=== PATIENT | female | born 1930 | race Caucasian/White ===

== ENCOUNTER 2018-02-20 14:36 | Inpatient (IN) | payer MEDICARE, OTHER ==
[2018-02-20] MEDS ORDERED: Sodium Chloride 0.9% 10 ML Syringe FLUSH PRN (15:01)
--- NOTE | 2018-02-20 15:15 | EDM.PDOC ---
ED HPI GENERAL MEDICAL PROBLEM - General Chief Complaint: Respiratory Problem Stated Complaint: [facility] Time Seen by Provider: 02/20/18 14:38 Source of Information: Reports: Patient, EMS, Group Home Records History Limitations: Reports: No Limitations - History of Present Illness INITIAL COMMENTS - FREE TEXT/NARRATIVE: Patient is a 87 y/o female who presents to the E.D. complaining of shortness of breath with exertion. Patient states she has chronic shortness of breath and over the past 2 weeks has noticed increasing shortness of breath with some few episodes of dizzy spells. Patient just recently returned from a trip to [place] on 08 February. Patient states with traveling at high altitudes she became really short of breath. She has been more worn out than usual. States normally she is able to walk 20 feet without getting SOB and as of recent can only walk 6 to 7 ft with becoming SOB. Patient at times uses a walker to ambulate. Denies home O2. She has gained approximately 5 pounds with recent travels. In addition she developed some slight discomfort to the left posterior aspect of her leg described as a cramp that improves with ambulation. She normally has some increased edema to her left leg in comparison to her right. She denies any chest pain, PND, orthopnea, fever, nausea/vomiting, back pain, abdominal pain, diarrhea, changes to her medications, or any additional complaints. She does not recall last protime. Patient was evaluated at the walk-in clinic today with O2 sats 88-90% on room air. With reviewing previous past medical history patient has a history of hypertension, coronary disease, atrial fibrillation, hyperlipidemia, GERD, DM, diastolic heart failure, and pulmonary hypertension. - Related Data Allergies Allergy/AdvReac Type Severity Reaction Status Date / Time glipizide Allergy Cannot Verified 02/20/18 18:13 Remember Sulfa (Sulfonamide Allergy Cannot Verified 02/20/18 18:13 Antibiotics) Remember Home Meds: Home Meds Acetaminophen 650 mg PO BID 12/20/14 [History] Ascorbate Calcium [Vitamin C] 500 mg PO DAILY 12/20/14 [History] Calcium Carb/Vit D3/Minerals [Hm Calcium 600 mg-Vit D Tab] 1 each PO BID [History] Fish Oil/[place]-3 Fatty Acids [Fish Oil 1,000 MG] 1 tab PO DAILY 12/20/14 [ History] Flaxseed Oil [Flaxseed] 1,200 mg PO QPM 12/20/14 [History] Furosemide [Lasix] 40 mg PO DAILY 12/20/14 [History] Losartan [Cozaar] 25 mg PO DAILY 12/20/14 [History] Metoprolol Succinate [Toprol XL] 50 mg PO QPM 12/20/14 [History] Multivitamin [Daily Multiple Vitamin] 1 tab PO DAILY 12/20/14 [History] Nitroglycerin [Nitrostat] 0.4 mg SL ASDIRECTED PRN 12/20/14 [History] Pantoprazole [ProTONIX] 40 mg PO DAILY PRN 12/20/14 [History] Potassium Chloride [Klor-Con M20] 20 meq PO DAILY 12/20/14 [History] Vitamin E 400 unit PO DAILY 12/20/14 [History] atorvaSTATin [Lipitor] 20 mg PO BEDTIME 12/20/14 [History] Cholecalciferol (Vitamin D3) [Vitamin D3] 1,000 units PO DAILY 02/20/18 [History ] Warfarin Sodium [Jantoven] 2.5 mg PO DAILY 02/20/18 [History] metFORMIN HCl [Metformin HCl] 500 mg PO DAILY 02/20/18 [History] Past Medical History Cardiovascular History: Reports: Afib, CAD, High Cholesterol, Hypertension Gastrointestinal History: Reports: Cholelithiasis, Diverticulosis, GERD, Hiatal Hernia Musculoskeletal History: Reports: Osteoarthritis Endocrine/Metabolic History: Reports: Diabetes, Type II - Past Surgical History HEENT Surgical History: Reports: Adenoidectomy, Tonsillectomy GI Surgical History: Reports: Appendectomy, Colonoscopy Female Surgical History: Reports: Breast Biopsy, Hysterectomy, Salpingo- Oophorectomy Musculoskeletal Surgical History: Reports: Knee Replacement Social & Family History - Tobacco Use Smoking Status *Q: Never Smoker - Caffeine Use Caffeine Use: Reports: None - Alcohol Use Days Per Week of Alcohol Use: 0 - Recreational Drug Use Recreational Drug Use: No ED ROS GENERAL - Review of Systems Review Of Systems: ROS reveals no pertinent complaints other than HPI. ED EXAM, GENERAL - Physical Exam Exam: See Below Exam Limited By: No Limitations General Appearance: Alert, WD/WN, No Apparent Distress Ears: Hearing Grossly Normal Nose: Normal Inspection Throat/Mouth: Normal Inspection, Normal Oropharynx, Normal Voice, No Airway Compromise Neck: Normal Inspection, Supple Respiratory/Chest: No Respiratory Distress, Lungs Clear, Normal Breath Sounds, No Accessory Muscle Use, Chest Non-Tender Cardiovascular: Normal Peripheral Pulses, No Murmur (obvious), Bradycardia, Extra Beats Peripheral Pulses: 3+: Radial (L), Radial (R) GI/Abdominal: Normal Bowel Sounds, Soft, Non-Tender, No Organomegaly, No Distention Extremities: Normal Range of Motion, Non-Tender, Normal Capillary Refill, Other (1+ edema to the lower legs bilaterally. L>R. ) Neurological: Alert, Oriented, CN II-XII Intact, Normal Cognition, No Motor/ Sensory Deficits Psychiatric: Normal Affect, Normal Mood Skin Exam: Warm, Dry, Intact, Normal Color Course - Vital Signs Last Recorded V/S: Last Vital Signs Temp 97.5 F 02/20/18 21:21 Pulse 58 L 02/20/18 21:25 Resp 16 02/20/18 21:21 BP 125/88 02/20/18 21:21 Pulse Ox 92 L 02/20/18 21:25 - Orders/Labs/Meds Orders: Active Orders 24 hr Category Date Time Status Oxygen Therapy [RC] ASDIRECTED Care 02/20/18 15:01 Active Sodium Chloride 0.9% [Saline Flush] Med 02/20/18 15:01 Active 10 ml FLUSH ASDIRECTED PRN Peripheral IV Insertion Adult [OM.PC] Stat Oth 02/20/18 15:01 Ordered Medication Orders Doxycycline Hyclate 100 mg/ (Sodium Chloride) 100 mls @ 100 mls/hr IV Q12HR [facility] Last Admin: 02/20/18 22:16 Dose: 100 mls/hr Methylprednisolone Sodium Succinate (Solu-Medrol) 80 mg IVPUSH Q12H [facility] Last Admin: 02/20/18 22:18 Dose: 80 mg Metoprolol Succinate (Toprol Xl) 50 mg PO QPM [facility] Nitroglycerin (Nitrostat) 0.4 mg SL ASDIRECTED PRN PRN Reason: Chest Pain Pantoprazole Sodium (Protonix) 40 mg PO DAILY PRN PRN Reason: reflux Potassium Chloride (Klor-Con M20) 20 meq PO DAILY [facility] Simvastatin (Zocor) 20 mg PO BEDTIME [facility] Last Admin: 02/20/18 22:19 Dose: 20 mg Sodium Chloride (Saline Flush) 10 ml FLUSH ASDIRECTED PRN PRN Reason: Keep Vein Open Last Admin: 02/20/18 15:10 Dose: 10 ml Warfarin Sodium (Coumadin) 2.5 mg PO DAILY@1800 [facility] Labs: Laboratory Tests 02/20/18 02/20/18 02/20/18 Range/Units 14:48 14:48 14:48 WBC 5.39 (3.98-10.04) K/mm3 RBC 5.13 (3.98-5.22) M/mm3 Hgb 14.8 (11.2-15.7) gm/L Hct 46.2 H (34.1-44.9) % MCV 90.1 (79.4-94.8) fl MCH 28.8 (25.6-32.2) pg MCHC 32.0 L (32.2-35.5) g/dl RDW Std Deviation 50.5 H (36.4-46.3) fL Plt Count 212 (182-369) K/mm3 MPV 10.1 (9.4-12.3) fl Neutrophils % (Manual) 51 (40-60) % Band Neutrophils % 0 (0-10) % Lymphocytes % (Manual) 40 (20-40) % Atypical Lymphs % 0 % Monocytes % (Manual) 4 (2-10) % Eosinophils % (Manual) 5 (0.7-5.8) % Basophils % (Manual) 0 L (0.1-1.2) Platelet Estimate Adequate RBC Morph Comment Normal PT 18.1 H (8.0-13.0) SECONDS INR 1.68 APTT 30 (22-36) SECONDS D-Dimer, Quantitative 0.31 (0.19-0.59) mg/L Puncture Site ABG pH (7.35-7.45) ABG pCO2 (35.0-45.0) mmHg ABG pO2 (80.0-100.0) mmHg ABG HCO3 (22.0-26.0) meq/L ABG O2 Saturation (96.0-97.0) % ABG Base Excess (-2-2.0) Bora Test A-a Gradient mmHg O2 Delivery Device Oxygen Flow Rate FiO2 (21.00-100.00) % Sodium 141 (136-145) mEq/L Potassium 4.6 (3.5-5.1) mEq/L Chloride 103 (98-107) mEq/L Carbon Dioxide 29 (21-32) mEq/L Anion Gap 13.6 (5-15) BUN 21 H (7-18) mg/dL Creatinine 1.1 H (0.55-1.02) mg/dL Est Cr Clr Drug Dosing 31.70 mL/min Estimated GFR (MDRD) 47 (>60) mL/min BUN/Creatinine Ratio 19.1 H (14-18) Glucose 109 (83-115) mg/dL Calcium 9.5 (8.5-10.1) mg/dL Total Bilirubin 0.5 (0.2-1.0) mg/dL AST 15 (15-37) U/L ALT 39 (14-59) U/L Alkaline Phosphatase 63 (46-116) U/L Troponin I < 0.017 (0.00-0.056) ng/mL NT-Pro-B Natriuret Pep (0-450) pg/mL Total Protein 7.1 (6.4-8.2) g/dl Albumin 3.5 (3.4-5.0) g/dl Globulin 3.6 gm/dL Albumin/Globulin Ratio 1.0 (1-2) TSH 3rd Generation 1.823 (0.358-3.74) uIU/mL 02/20/18 02/20/18 Range/Units 14:48 16:21 WBC (3.98-10.04) K/mm3 RBC (3.98-5.22) M/mm3 Hgb (11.2-15.7) gm/L Hct (34.1-44.9) % MCV (79.4-94.8) fl MCH (25.6-32.2) pg MCHC (32.2-35.5) g/dl RDW Std Deviation (36.4-46.3) fL Plt Count (182-369) K/mm3 MPV (9.4-12.3) fl Neutrophils % (Manual) (40-60) % Band Neutrophils % (0-10) % Lymphocytes % (Manual) (20-40) % Atypical Lymphs % % Monocytes % (Manual) (2-10) % Eosinophils % (Manual) (0.7-5.8) % Basophils % (Manual) (0.1-1.2) Platelet Estimate RBC Morph Comment PT (8.0-13.0) SECONDS INR APTT (22-36) SECONDS D-Dimer, Quantitative (0.19-0.59) mg/L Puncture Site Lt radial ABG pH 7.40 (7.35-7.45) ABG pCO2 45.9 H (35.0-45.0) mmHg ABG pO2 71.0 L (80.0-100.0) mmHg ABG HCO3 28.1 H (22.0-26.0) meq/L ABG O2 Saturation 95.0 L (96.0-97.0) % ABG Base Excess 3.2 H (-2-2.0) Bora Test Positive A-a Gradient 25 mmHg O2 Delivery Device Nasal cannula Oxygen Flow Rate 1.0 FiO2 24.00 (21.00-100.00) % Sodium (136-145) mEq/L Potassium (3.5-5.1) mEq/L Chloride (98-107) mEq/L Carbon Dioxide (21-32) mEq/L Anion Gap (5-15) BUN (7-18) mg/dL Creatinine (0.55-1.02) mg/dL Est Cr Clr Drug Dosing mL/min Estimated GFR (MDRD) (>60) mL/min BUN/Creatinine Ratio (14-18) Glucose (83-115) mg/dL Calcium (8.5-10.1) mg/dL Total Bilirubin (0.2-1.0) mg/dL AST (15-37) U/L ALT (14-59) U/L Alkaline Phosphatase (46-116) U/L Troponin I (0.00-0.056) ng/mL NT-Pro-B Natriuret Pep 324 (0-450) pg/mL Total Protein (6.4-8.2) g/dl Albumin (3.4-5.0) g/dl Globulin gm/dL Albumin/Globulin Ratio (1-2) TSH 3rd Generation (0.358-3.74) uIU/mL Meds: Medications Generic Name Dose Route Start Last Admin Trade Name Freq PRN Reason Stop Dose Admin Doxycycline Hyclate 100 mg/ 100 mls @ 100 mls/hr 02/20/18 21:00 02/20/18 22: 16 Sodium Chloride IV 100 mls/hr Q12HR [facility] Administration Methylprednisolone Sodium Succinate 80 mg 02/20/18 21:00 02/20/18 22:18 Solu-Medrol IVPUSH 80 mg Q12H [facility] Administration Metoprolol Succinate 50 mg 02/21/18 18:00 Toprol Xl PO QPM [facility] Nitroglycerin 0.4 mg 02/20/18 20:50 Nitrostat SL ASDIRECTED PRN Chest Pain Pantoprazole Sodium 40 mg 02/20/18 20:50 Protonix PO DAILY PRN reflux Potassium Chloride 20 meq 02/21/18 09:00 Klor-Con M20 PO DAILY [facility] Simvastatin 20 mg 02/20/18 21:30 02/20/18 22:19 Zocor PO 20 mg BEDTIME [facility] Administration Sodium Chloride 10 ml 02/20/18 15:01 02/20/18 15:10 Saline Flush FLUSH 10 ml ASDIRECTED PRN Administration Keep Vein Open Warfarin Sodium 2.5 mg 02/21/18 18:00 Coumadin PO DAILY@1800 [facility] Discontinued Medications Generic Name Dose Route Start Last Admin Trade Name Freq PRN Reason Stop Dose Admin Magnesium Sulfate 2 gm/ Premix 50 mls @ 25 mls/hr 02/20/18 21:16 02/20/18 22: 16 IV 02/20/18 23:15 25 mls/hr ONETIME ONE Administration - Re-Assessments/Exams Free Text/Narrative Re-Assessment/Exam: IV established. Initial labs and studies will include CBC, chem 14, coag studies, pro-BMP, troponin, TSH, chest x-ray one view, EKG, ABG, and d-dimer. EKG: Sinus bradycardia rate of 32 with PJC's. Variable. Patients BP 115/ systolic. CXR reviewed with Dr. Marino with increased pulmonary vascular congestion noted. Cardiomegaly present. 02/20/18 15:41Labs reviewed: CBC was essentially normal. INR is 1.68 which is subtherapeutic. D-dimer normal. Sodium and potassium all within normal limits. Creatinine 1.1. Troponin less than 0.017. ProBNP is 324. TSH 1.823. [address] Bhakta with no answer.Unable to leave a message. Will call back in a few minutes for admission. 02/20/18 16:31 Reassessment, patient's heart rate 59. SPO2 88% to 92% on 1 L nasal cannula. Attempting to be in contact with Dr. Bhakta. Patient states breathing has improved with the oxygen therapy. 02/20/18 16:[address] Bhakta. She has agreed to admit patient. Requests med surg with tele. [facility] [place] to be completed. Departure - Departure Time of Disposition: 15:35 Disposition: Admitted As Inpatient 67 Condition: Fair Clinical Impression: Symptomatic bradycardia - Discharge Information - My Orders Last 24 Hours: My Active Orders 02/20/18 15:01 Oxygen Therapy [RC] ASDIRECTED Sodium Chloride 0.9% [Saline Flush] 10 ml FLUSH ASDIRECTED PRN Peripheral IV Insertion Adult [OM.PC] Stat - Assessment/Plan Last 24 Hours: My Active Orders 02/20/18 15:01 Oxygen Therapy [RC] ASDIRECTED Sodium Chloride 0.9% [Saline Flush] 10 ml FLUSH ASDIRECTED PRN Peripheral IV Insertion Adult [OM.PC] Stat
--- NOTE | 2018-02-20 18:31 | CR ---
Chest: Portable view of the chest was obtained. Comparison: Prior chest x-ray of 12/20/[address] of 12/20/14. Heart is enlarged. Tortuous thoracic aorta is seen. Slight parenchymal density is seen behind the left heart along the lateral left chest which could represent loculated pleural effusion, atelectasis or even small area of pneumonia. Lungs otherwise are clear. Scoliosis is present within the spine. Bony structures are osteopenic. Impression: 1. Slight parenchymal density behind the left heart as noted above. Contrast-enhanced chest CT would be helpful to further evaluate if clinically needed. 2. Other incidental findings. Diagnostic code #3
[2018-02-20] MEDS ORDERED: Pantoprazole 40 MG Tab.CR PO PRN (20:50)
[2018-02-20] MEDS ORDERED: Nitroglycerin 0.4 MG Tab.SL SL PRN (20:50)
[2018-02-20] MEDS ORDERED: Doxycycline 100 MG in Sodium Chloride 0.9% 100 ML IV SCH (21:00)
[2018-02-20] MEDS ORDERED: Non-Formulary Medication 1 Each (Atorvastatin 20 MG) PO SCH (21:00)
[2018-02-20] MEDS ORDERED: Magnesium Sulfate/Water 2 GM in Premix Bag 1 BAG IV ONE (21:16)
--- NOTE | 2018-02-20 21:22 | PCM.HP ---
H&P History of Present Illness - General Date of Service: 02/20/18 Admit Problem/Dx: Admission Diagnosis/Problem Admission Diagnosis/Problem Bradycardia Source of Information: Patient, Family, Provider - History of Present Illness Initial Comments - Free Text/Narative: 87 year old female who has been traveling has recently experienced SOB with decreasing distance. She has had palpitations, lightheadedness, and increasing fatigue. The patient recently returned from [place]. She has had a negative PE work up; telemetry documented a heart rate in the 30-40s. She will be admitted for an atypical PNA treatment and symptomatic bradycardia. Onset of Symptoms: Reports: Gradual Symptom Onset Date: 01/31/18 Duration of Symptoms: Reports: Week(s):, Getting Worse Location: Reports: Generalized Severity: Moderate Improves with: Reports: Medication Worsens with: Reports: None Context: Reports: Activity/Exercise, Travel ([place]) Associated Symptoms: Reports: Malaise, Shortness of Breath, Weakness - Related Data Allergies/Adverse Reactions: Allergies Allergy/AdvReac Type Severity Reaction Status Date / Time glipizide Allergy Cannot Verified 02/20/18 18:13 Remember Sulfa (Sulfonamide Allergy Cannot Verified 02/20/18 18:13 Antibiotics) Remember Home Medications: Home Meds Acetaminophen 650 mg PO BID 12/20/14 [History] Ascorbate Calcium [Vitamin C] 500 mg PO DAILY 12/20/14 [History] Calcium Carb/Vit D3/Minerals [Hm Calcium 600 mg-Vit D Tab] 1 each PO BID [History] Fish Oil/Arion-3 Fatty Acids [Fish Oil 1,000 MG] 1 tab PO QID 12/20/14 [History] Flaxseed Oil [Flaxseed] 1,200 mg PO QPM 12/20/14 [History] Furosemide [Lasix] 40 mg PO DAILY 12/20/14 [History] Losartan [Cozaar] 25 mg PO DAILY 12/20/14 [History] Metoprolol Succinate [Toprol XL] 50 mg PO QPM 12/20/14 [History] Multivitamin [Daily Multiple Vitamin] 1 tab PO DAILY 12/20/14 [History] Nitroglycerin [Nitrostat] 0.4 mg SL ASDIRECTED PRN 12/20/14 [History] Pantoprazole [ProTONIX] 40 mg PO DAILY PRN 12/20/14 [History] Potassium Chloride [Klor-Con M20] 20 meq PO DAILY 12/20/14 [History] Vitamin E 400 unit PO DAILY 12/20/14 [History] atorvaSTATin [Lipitor] 20 mg PO BEDTIME 12/20/14 [History] Cholecalciferol (Vitamin D3) [Vitamin D3] 1,000 units PO DAILY 02/20/18 [History ] Warfarin Sodium [Jantoven] 2.5 mg PO DAILY 02/20/18 [History] metFORMIN HCl [Metformin HCl] 500 mg PO DAILY 02/20/18 [History] Past Medical History HEENT History: Reports: Cataract, Hard of Hearing, Impaired Vision, Other (See Below) Other HEENT History: wears glasses, wears hearing aids, has a partial Cardiovascular History: Reports: Afib, Blood Clots/VTE/DVT, CAD, Heart Failure, High Cholesterol, Hypertension, SOB on Exertion Respiratory History: Reports: None Gastrointestinal History: Reports: Diverticulosis, GERD, Hiatal Hernia Genitourinary History: Reports: None RN PALLIATIVE CARE History: Reports: None Musculoskeletal History: Reports: Osteoarthritis Neurological History: Reports: None Psychiatric History: Reports: None Endocrine/Metabolic History: Reports: Diabetes, Type II, Obesity/BMI 30+ Hematologic History: Reports: None Immunologic History: Reports: None Oncologic (Cancer) History: Reports: None Dermatologic History: Reports: Cellulitis - Infectious Disease History Infectious Disease History: Reports: None - Past Surgical History HEENT Surgical History: Reports: Adenoidectomy, Tonsillectomy Cardiovascular Surgical History: Reports: None Respiratory Surgical History: Reports: None GI Surgical History: Reports: Appendectomy, Colonoscopy Female Surgical History: Reports: Breast Biopsy, Hysterectomy, Salpingo- Oophorectomy Neurological Surgical History: Reports: None Musculoskeletal Surgical History: Reports: Knee Replacement, Other (See Below) Other Musculoskeletal Surgeries/Procedures:: right knee replacement Oncologic Surgical History: Reports: Biopsy of Breast Dermatological Surgical History: Reports: None Social & Family History - Family History Family Medical History: Noncontributory - Tobacco Use Smoking Status *Q: Never Smoker - Caffeine Use Caffeine Use: Reports: Coffee, Soda, Tea - Alcohol Use Days Per Week of Alcohol Use: 0 - Recreational Drug Use Recreational Drug Use: No H&P Review of Systems - Review of Systems: Review Of Systems: See Below General: Reports: Weakness, Fatigue HEENT: Reports: No Symptoms Pulmonary: Reports: Shortness of Breath, Cough Cardiovascular: Reports: No Symptoms Gastrointestinal: Reports: No Symptoms Genitourinary: Reports: No Symptoms Musculoskeletal: Reports: No Symptoms Skin: Reports: No Symptoms Psychiatric: Reports: No Symptoms Neurological: Reports: No Symptoms Hematologic/Lymphatic: Reports: Easy Bleeding Immunologic: Reports: No Symptoms Exam - Exam Exam: See Below - Vital Signs Vital Signs: Last Vital Signs Temp 36.6 C 02/20/18 18:01 Pulse 61 02/20/18 18:01 Resp 18 02/20/18 18:01 BP 163/91 H 02/20/18 18:01 Pulse Ox 91 L 02/20/18 18:01 Weight: 108.545 kg - Exam Quality Assessment: Supplemental Oxygen General: Alert, Oriented, Cooperative HEENT: EACs Clear, EOMI, Pupils Equal, Pupils Reactive, PERRLA Neck: Trachea Midline Lungs: Normal Respiratory Effort, Decreased Breath Sounds Cardiovascular: Regular Rate, Irregular Rhythm GI/Abdominal Exam: Normal Bowel Sounds, Soft, Non-Tender, No Organomegaly, No Distention (Female) Exam: Deferred Rectal (Female) Exam: Deferred Back Exam: Normal Inspection Extremities: Normal Inspection, Non-Tender Skin: Warm Neurological: Cranial Nerves Intact Neuro Extensive - Mental Status: Alert, Oriented x3, Normal Mood/Affect, Normal Cognition, Memory Intact Neuro Extensive - Motor, Sensory, Reflexes: CN II-XII Intact Psychiatric: Alert - Patient Data Result Diagrams: 02/21/18 05:08 02/21/18 05:08 - Problem List (1) CAD (coronary artery disease) SNOMED Code(s): 70320055 ICD Code: I25.10 - ATHSCL HEART DISEASE OF [place] CORONARY ARTERY W/O ANG PCTRS Status: Acute Current Visit: Yes (2) Hypertension SNOMED Code(s): 46407596 ICD Code: I10 - ESSENTIAL (PRIMARY) HYPERTENSION Status: Acute Current Visit: Yes (3) Diabetes mellitus SNOMED Code(s): 49868330 ICD Code: E11.9 - TYPE 2 DIABETES MELLITUS WITHOUT COMPLICATIONS Status: Acute Current Visit: Yes (4) GERD (gastroesophageal reflux disease) SNOMED Code(s): 023965586 ICD Code: K21.9 - GASTRO-ESOPHAGEAL REFLUX DISEASE WITHOUT ESOPHAGITIS Status: Acute Current Visit: Yes (5) Pulmonary hypertension SNOMED Code(s): 24999799 ICD Code: I27.20 - PULMONARY HYPERTENSION, UNSPECIFIED Status: Acute Current Visit: Yes (6) Symptomatic bradycardia SNOMED Code(s): 03416584, 760548660 ICD Code: R00.1 - BRADYCARDIA, UNSPECIFIED Status: Acute Current Visit: Yes (7) Afib, Atrial fibrillation and flutter SNOMED Code(s): 368387661 ICD Code: I48.91 - UNSPECIFIED ATRIAL FIBRILLATION; I48.92 - UNSPECIFIED ATRIAL FLUTTER Status: Acute Current Visit: No (8) Chronic congestive heart failure, CHF SNOMED Code(s): 61598833 ICD Code: I50.9 - HEART FAILURE, UNSPECIFIED Status: Acute Current Visit : No (9) Pulmonary congestion SNOMED Code(s): 19012808 ICD Code: R09.89 - OTH SYMPTOMS AND SIGNS INVOLVING THE CIRC AND RESP SYSTEMS Status: Acute Current Visit: No (10) Pulmonary hypertension SNOMED Code(s): 68767045 ICD Code: I27.2 - OTHER SECONDARY PULMONARY HYPERTENSION * DO NOT USE * Status: Acute Current Visit: No Problem List Initiated/Reviewed/Updated: Yes Orders Last 24hrs: Active Orders 24 hr Category Date Time Status Antiembolic Devices [RC] PER UNIT ROUTINE Care 02/20/18 20:52 Ordered Consult to Case Management [CONS] Routine Cons 02/20/18 21:18 Ordered Consult to Occupational Therapy [OT Evaluation and Cons 02/20/18 21:18 Ordered Treatment] [CONS] Routine Consult to Physical Therapy [PT Evaluation and Cons 02/20/18 21:18 Ordered Treatment] [CONS] Routine [place] [employer] Diet [DIET] Diet 02/21/18 Breakfast Ordered Heart Healthy Diet [DIET] Diet 02/20/18 Dinner Active CXR [Chest 2V] [CR] Routine Exams 02/22/18 08:00 Ordered BMP [BASIC METABOLIC PANEL,BMP] [CHEM] DAILY Lab 02/21/18 05:00 Ordered BMP [BASIC METABOLIC PANEL,BMP] [CHEM] DAILY Lab 02/22/18 05:00 Ordered BMP [BASIC METABOLIC PANEL,BMP] [CHEM] DAILY Lab 02/23/18 05:00 Ordered BMP [BASIC METABOLIC PANEL,BMP] [CHEM] DAILY Lab 02/24/18 05:00 Ordered CBC WITH AUTO DIFF [HEME] DAILY Lab 02/21/18 05:00 Ordered CBC WITH AUTO DIFF [HEME] DAILY Lab 02/22/18 05:00 Ordered CBC WITH AUTO DIFF [HEME] DAILY Lab 02/23/18 05:00 Ordered CBC WITH AUTO DIFF [HEME] DAILY Lab 02/24/18 05:00 Ordered CRP [C-REACTIVE PROTEIN] [CHEM] DAILY Lab 02/21/18 05:00 Ordered CRP [C-REACTIVE PROTEIN] [CHEM] DAILY Lab 02/22/18 05:00 Ordered CRP [C-REACTIVE PROTEIN] [CHEM] DAILY Lab 02/23/18 05:00 Ordered CRP [C-REACTIVE PROTEIN] [CHEM] DAILY Lab 02/24/18 05:00 Ordered INR,PT,PROTHROMBIN TIME [COAG] DAILY Lab 02/21/18 05:00 Ordered INR,PT,PROTHROMBIN TIME [COAG] DAILY Lab 02/22/18 05:00 Ordered INR,PT,PROTHROMBIN TIME [COAG] DAILY Lab 02/23/18 05:00 Ordered INR,PT,PROTHROMBIN TIME [COAG] DAILY Lab 02/24/18 05:00 Ordered LACTIC ACID [CHEM] DAILY Lab 02/21/18 05:00 Ordered LACTIC ACID [CHEM] DAILY Lab 02/22/18 05:00 Ordered LACTIC ACID [CHEM] DAILY Lab 02/23/18 05:00 Ordered LACTIC ACID [CHEM] DAILY Lab 02/24/18 05:00 Ordered LIPID PANEL [CHEM] Routine Lab 02/21/18 05:00 Ordered MAGNESIUM [CHEM] DAILY Lab 02/21/18 05:00 Ordered MAGNESIUM [CHEM] DAILY Lab 02/22/18 05:00 Ordered MAGNESIUM [CHEM] DAILY Lab 02/23/18 05:00 Ordered MAGNESIUM [CHEM] DAILY Lab 02/24/18 05:00 Ordered MYCOPLASMA PNEUMONIAE IGM AB [CHEM] Routine Lab 02/21/18 05:00 Ordered RESPIRATORY PANEL BY PCR [MREF] Routine Lab 02/20/18 21:19 Ordered Doxycycline [Vibramycin] 100 mg Med 02/20/18 21:00 Ordered Sodium Chloride 0.9% [Normal Saline] 100 ml IV Q12HR Magnesium Sulfate/Water [Magnesium Sulfate 2 GM in Med 02/20/18 21:16 Ordered Water 50 ML] 2 gm Premix Bag 1 bag IV ONETIME Metoprolol Succinate [Toprol XL] Med 02/21/18 18:00 Ordered 50 mg PO QPM Nitroglycerin [Nitrostat] Med 02/20/18 20:50 Ordered 0.4 mg SL ASDIRECTED PRN Pantoprazole [ProTONIX] Med 02/20/18 20:50 Ordered 40 mg PO DAILY PRN Potassium Chloride [Klor-Con M20] Med 02/21/18 09:00 Ordered 20 meq PO DAILY Warfarin [Coumadin] Med 02/21/18 09:00 Ordered 2.5 mg PO DAILY atorvaSTATin Med 02/20/18 21:00 Ordered 20 mg PO BEDTIME methylPREDNISolone Sod Succ [Solu-MEDROL] Med 02/20/18 21:00 Ordered 80 mg IVPUSH Q12H LINDA Hose [Antiembolic Hose] [OM.PC] Routine Oth 02/20/18 20:52 Ordered Resuscitation Status Routine Resus Stat 02/20/18 19:52 Ordered Medication Orders Doxycycline Hyclate 100 mg/ (Sodium Chloride) 100 mls @ 100 mls/hr IV Q12HR [facility] Magnesium Sulfate 2 gm/ Premix 50 mls @ 25 mls/hr IV ONETIME ONE Stop: 02/20/18 23:15 Methylprednisolone Sodium Succinate (Solu-Medrol) 80 mg IVPUSH Q12H [facility] Metoprolol Succinate (Toprol Xl) 50 mg PO QPM [facility] Nitroglycerin (Nitrostat) 0.4 mg SL ASDIRECTED PRN PRN Reason: Chest Pain Non-Formulary Medication (Atorvastatin) 20 mg PO BEDTIME [facility] Pantoprazole Sodium (Protonix) 40 mg PO DAILY PRN PRN Reason: reflux Potassium Chloride (Klor-Con M20) 20 meq PO DAILY [facility] Sodium Chloride (Saline Flush) 10 ml FLUSH ASDIRECTED PRN PRN Reason: Keep Vein Open Last Admin: 02/20/18 15:10 Dose: 10 ml Warfarin Sodium (Coumadin) 2.5 mg PO DAILY [facility] Assessment/Plan Comment:: Impression: Symptomatic bradycardia with A fib on long acting BB Progressive SOB after travel to [facility] History of pulmonary hypertension, functional status declining Hypoxia, room air at 88-90% on RA Chronic HTN GERD DHF CAD HTN HLD Plan: Hold BB, follow response Atypical PNA coverage, doxycycline Ischemic work up Infectious work up Home meds Daily Labs DVT/GI prophylaxis CM/PT/OT
[2018-02-20] MEDS: methylPREDNISolone Sodium Succinate 40 MG/1 ML SDV IVPUSH SCH (22:18)
[2018-02-20] MEDS: Simvastatin 20 MG Tab PO SCH (22:19)
[2018-02-21] MEDS: Potassium Chloride 20 MEQ Tab.ER PO SCH (09:38)
[2018-02-21] MEDS: methylPREDNISolone Sodium Succinate 40 MG/1 ML SDV IVPUSH SCH (09:39)
[2018-02-21] MEDS: hydrALAZINE 20 MG/ML SDV IVPUSH PRN (13:36)
[2018-02-21] MEDS: Acetaminophen 325 MG Tab PO PRN ×2 (14:42→20:18)
--- NOTE | 2018-02-21 15:55 | PCM.PN ---
- General Info Date of Service: 02/21/18 Admission Dx/Problem (Free Text): Admission Diagnosis/Problem Admission Diagnosis/Problem Bradycardia Subjective Update: In to see Betty. She is sitting in the chair in her room. She reports SOB and states that it is still about at the level from when she came in. She is set to have a CT scan of her chest tomorrow. Her CRP and WBC are WNL so doubting infection at this point. Infectious workup has thus far been negative. Echo ordered for AM. She does have some pedal edema which she states is normal and not any worse than baseline today. No complaints. No concerns from nursing. Functional Status: Reports: Pain Controlled, Tolerating Diet, Ambulating, Urinating, New Symptoms, Incentive Spirometry - Review of Systems General: Reports: No Symptoms, Weakness, Fatigue. Denies: Fever, Malaise HEENT: Reports: No Symptoms. Denies: Post Nasal Drip, Sinus Congestion, Sore Throat Pulmonary: Reports: Shortness of Breath, Cough Cardiovascular: Reports: No Symptoms Gastrointestinal: Reports: No Symptoms. Denies: Abdominal Pain, Constipation, Diarrhea, Nausea, Vomiting Genitourinary: Reports: No Symptoms Musculoskeletal: Reports: No Symptoms Skin: Reports: No Symptoms Neurological: Reports: No Symptoms Psychiatric: Reports: No Symptoms - Patient Data Vitals - Most Recent: Last Vital Signs Temp 97.9 F 02/21/18 14:49 Pulse 80 02/21/18 14:49 Resp 16 02/21/18 14:49 BP 142/68 H 02/21/18 14:49 Pulse Ox 96 02/21/18 14:49 Weight - Most Recent: 239 lb 4.8 oz I&O - Last 24 Hours: Intake & Output 02/21/18 02/21/18 02/21/18 06:59 14:59 22:59 Intake Total 180 Output Total 225 Balance -225 180 Lab Results Last 24 Hours: Laboratory Results - last 24 hr 02/20/18 02/21/18 02/21/18 Range/Units 16:21 05:08 05:08 WBC 4.73 (3.98-10.04) K/mm3 RBC 5.20 (3.98-5.22) M/mm3 Hgb 15.1 (11.2-15.7) gm/L Hct 46.7 H (34.1-44.9) % MCV 89.8 (79.4-94.8) fl MCH 29.0 (25.6-32.2) pg MCHC 32.3 (32.2-35.5) g/dl RDW Std Deviation 49.5 H (36.4-46.3) fL Plt Count 203 (182-369) K/mm3 MPV 9.9 (9.4-12.3) fl Neut % (Auto) 85.4 H (34.0-71.1) % Lymph % (Auto) 12.5 L (19.3-51.7) % [place] % (Auto) 1.7 L (4.7-12.5) % Eos % (Auto) 0.2 L (0.7-5.8) Baso % (Auto) 0.2 (0.1-1.2) % Neut # (Auto) 4.04 (1.56-6.13) K/mm3 Lymph # (Auto) 0.59 L (1.18-3.74) K/mm3 [place] # (Auto) 0.08 L (0.24-0.36) K/mm3 Eos # (Auto) 0.01 L (0.04-0.36) K/mm3 Baso # (Auto) 0.01 (0.01-0.08) K/mm3 Manual Slide Review Abnormal smear PT (8.0-13.0) SECONDS INR Puncture Site Lt radial ABG pH 7.40 (7.35-7.45) ABG pCO2 45.9 H (35.0-45.0) mmHg ABG pO2 71.0 L (80.0-100.0) mmHg ABG HCO3 28.1 H (22.0-26.0) meq/L ABG O2 Saturation 95.0 L (96.0-97.0) % ABG Base Excess 3.2 H (-2-2.0) Bora Test Positive A-a Gradient 25 mmHg O2 Delivery Device Nasal cannula Oxygen Flow Rate 1.0 FiO2 24.00 (21.00-100.00) % Sodium 140 (136-145) mEq/L Potassium 4.3 (3.5-5.1) mEq/L Chloride 101 (98-107) mEq/L Carbon Dioxide 29 (21-32) mEq/L Anion Gap 14.3 (5-15) BUN 22 H (7-18) mg/dL Creatinine 1.0 (0.55-1.02) mg/dL Est Cr Clr Drug Dosing 34.87 mL/min Estimated GFR (MDRD) 53 (>60) mL/min BUN/Creatinine Ratio 22.0 H (14-18) Glucose 218 H (83-115) mg/dL POC Glucose (83-110) mg/dL Lactic Acid (0.4-2.0) mmol/L Calcium 8.9 (8.5-10.1) mg/dL Magnesium 2.4 (1.8-2.4) mg/dl C-Reactive Protein < 0.2 (<1.0) mg/dL Triglycerides 132 (<150) mg/dL Cholesterol 140 (<200) mg/dL LDL Cholesterol Direct 86 (<100) mg/dL HDL Cholesterol 38.0 L (40-59) mg/dL Mycoplasma pneumon IgM Negative (NEGATIVE) 02/21/18 02/21/18 02/21/18 Range/Units 05:08 05:08 06:15 WBC (3.98-10.04) K/mm3 RBC (3.98-5.22) M/mm3 Hgb (11.2-15.7) gm/L Hct (34.1-44.9) % MCV (79.4-94.8) fl MCH (25.6-32.2) pg MCHC (32.2-35.5) g/dl RDW Std Deviation (36.4-46.3) fL Plt Count (182-369) K/mm3 MPV (9.4-12.3) fl Neut % (Auto) (34.0-71.1) % Lymph % (Auto) (19.3-51.7) % [place] % (Auto) (4.7-12.5) % Eos % (Auto) (0.7-5.8) Baso % (Auto) (0.1-1.2) % Neut # (Auto) (1.56-6.13) K/mm3 Lymph # (Auto) (1.18-3.74) K/mm3 [place] # (Auto) (0.24-0.36) K/mm3 Eos # (Auto) (0.04-0.36) K/mm3 Baso # (Auto) (0.01-0.08) K/mm3 Manual Slide Review PT 18.5 H (8.0-13.0) SECONDS INR 1.72 Puncture Site ABG pH (7.35-7.45) ABG pCO2 (35.0-45.0) mmHg ABG pO2 (80.0-100.0) mmHg ABG HCO3 (22.0-26.0) meq/L ABG O2 Saturation (96.0-97.0) % ABG Base Excess (-2-2.0) Bora Test A-a Gradient mmHg O2 Delivery Device Oxygen Flow Rate FiO2 (21.00-100.00) % Sodium (136-145) mEq/L Potassium (3.5-5.1) mEq/L Chloride (98-107) mEq/L Carbon Dioxide (21-32) mEq/L Anion Gap (5-15) BUN (7-18) mg/dL Creatinine (0.55-1.02) mg/dL Est Cr Clr Drug Dosing mL/min Estimated GFR (MDRD) (>60) mL/min BUN/Creatinine Ratio (14-18) Glucose (83-115) mg/dL POC Glucose 203 H (83-110) mg/dL Lactic Acid 1.6 (0.4-2.0) mmol/L Calcium (8.5-10.1) mg/dL Magnesium (1.8-2.4) mg/dl C-Reactive Protein (<1.0) mg/dL Triglycerides (<150) mg/dL Cholesterol (<200) mg/dL LDL Cholesterol Direct (<100) mg/dL HDL Cholesterol (40-59) mg/dL Mycoplasma pneumon IgM (NEGATIVE) 02/21/18 Range/Units 11:08 WBC (3.98-10.04) K/mm3 RBC (3.98-5.22) M/mm3 Hgb (11.2-15.7) gm/L Hct (34.1-44.9) % MCV (79.4-94.8) fl MCH (25.6-32.2) pg MCHC (32.2-35.5) g/dl RDW Std Deviation (36.4-46.3) fL Plt Count (182-369) K/mm3 MPV (9.4-12.3) fl Neut % (Auto) (34.0-71.1) % Lymph % (Auto) (19.3-51.7) % [place] % (Auto) (4.7-12.5) % Eos % (Auto) (0.7-5.8) Baso % (Auto) (0.1-1.2) % Neut # (Auto) (1.56-6.13) K/mm3 Lymph # (Auto) (1.18-3.74) K/mm3 [place] # (Auto) (0.24-0.36) K/mm3 Eos # (Auto) (0.04-0.36) K/mm3 Baso # (Auto) (0.01-0.08) K/mm3 Manual Slide Review PT (8.0-13.0) SECONDS INR Puncture Site ABG pH (7.35-7.45) ABG pCO2 (35.0-45.0) mmHg ABG pO2 (80.0-100.0) mmHg ABG HCO3 (22.0-26.0) meq/L ABG O2 Saturation (96.0-97.0) % ABG Base Excess (-2-2.0) Bora Test A-a Gradient mmHg O2 Delivery Device Oxygen Flow Rate FiO2 (21.00-100.00) % Sodium (136-145) mEq/L Potassium (3.5-5.1) mEq/L Chloride (98-107) mEq/L Carbon Dioxide (21-32) mEq/L Anion Gap (5-15) BUN (7-18) mg/dL Creatinine (0.55-1.02) mg/dL Est Cr Clr Drug Dosing mL/min Estimated GFR (MDRD) (>60) mL/min BUN/Creatinine Ratio (14-18) Glucose (83-115) mg/dL POC Glucose 229 H (83-110) mg/dL Lactic Acid (0.4-2.0) mmol/L Calcium (8.5-10.1) mg/dL Magnesium (1.8-2.4) mg/dl C-Reactive Protein (<1.0) mg/dL Triglycerides (<150) mg/dL Cholesterol (<200) mg/dL LDL Cholesterol Direct (<100) mg/dL HDL Cholesterol (40-59) mg/dL Mycoplasma pneumon IgM (NEGATIVE) Med Orders - Current: Current Medications Acetaminophen (Tylenol) 650 mg PO Q4H PRN PRN Reason: Pain Last Admin: 02/21/18 14:42 Dose: 650 mg Doxycycline Hyclate (Vibramycin) 100 mg PO BID [facility] Hydralazine HCl (Apresoline) 20 mg IVPUSH Q6H PRN PRN Reason: Hypertension Last Admin: 02/21/18 13:36 Dose: 20 mg Doxycycline Hyclate 100 mg/ (Dextrose/Water) 100 mls @ 100 mls/hr IV Q12HR [facility] Stop: 02/21/18 23:00 Last Admin: 02/21/18 09:39 Dose: 100 mls/hr Methylprednisolone Sodium Succinate (Solu-Medrol) 80 mg IVPUSH Q12H [facility] Last Admin: 02/21/18 09:39 Dose: 80 mg Metoprolol Succinate (Toprol Xl) 50 mg PO QPM [facility] Nitroglycerin (Nitrostat) 0.4 mg SL ASDIRECTED PRN PRN Reason: Chest Pain Pantoprazole Sodium (Protonix) 40 mg PO DAILY PRN PRN Reason: reflux Potassium Chloride (Klor-Con M20) 20 meq PO DAILY [facility] Last Admin: 02/21/18 09:38 Dose: 20 meq Simvastatin (Zocor) 20 mg PO BEDTIME [facility] Last Admin: 02/20/18 22:19 Dose: 20 mg Sodium Chloride (Saline Flush) 10 ml FLUSH ASDIRECTED PRN PRN Reason: Keep Vein Open Last Admin: 02/20/18 15:10 Dose: 10 ml Warfarin Sodium (Coumadin) 2.5 mg PO DAILY@1800 [facility] Discontinued Medications Doxycycline Hyclate 100 mg/ (Sodium Chloride) 100 mls @ 100 mls/hr IV Q12HR [facility] Last Admin: 02/20/18 22:16 Dose: 100 mls/hr Magnesium Sulfate 2 gm/ Premix 50 mls @ 25 mls/hr IV ONETIME ONE Stop: 02/20/18 23:15 Last Admin: 02/20/18 22:16 Dose: 25 mls/hr Doxycycline Hyclate 100 mg/ (Dextrose/Water) 100 mls @ 100 mls/hr IV Q12HR [facility] - Exam Quality Assessment: Supplemental Oxygen, DVT Prophylaxis General: Alert, Oriented, Cooperative, No Acute Distress HEENT: Pupils Equal, Pupils Reactive, EOMI, Mucous Membr. Moist/[place] Neck: Supple, Trachea Midline, No JVD Lungs: Clear to Auscultation, Normal Respiratory Effort, Decreased Breath Sounds Cardiovascular: Regular Rate, Irregular Rhythm GI/Abdominal Exam: Normal Bowel Sounds, Soft, Non-Tender, No Organomegaly, No Distention, No Abnormal Bruit, No Mass, Pelvis Stable Back Exam: Normal Inspection, Full Range of Motion Extremities: Normal Inspection, Normal Range of Motion, Non-Tender, Normal Capillary Refill, Pedal Edema (1+ L>R) Peripheral Pulses: 1+: Posterior Tibial (L), Posterior Tibial (R), Dorsalis Pedis (L), Dorsalis Pedis (R), 2+: Radial (L), Radial (R) Skin: Warm, Dry, Intact Neurological: No New Focal Deficit Psy/Mental Status: Alert, Normal Affect, Normal Mood - Problem List & Annotations (1) CAD (coronary artery disease) SNOMED Code(s): 15290739 Code(s): I25.10 - ATHSCL HEART DISEASE OF [place] CORONARY ARTERY W/O ANG PCTRS Status: Chronic Priority: Medium Current Visit: Yes Qualifiers: Coronary Disease-Associated Artery/Lesion type: unspecified vessel or lesion type [place] vs. transplanted heart: unspecified whether [place] or transplanted heart Associated angina: angina presence unspecified Qualified Code(s): I25.10 - Atherosclerotic heart disease of [place] coronary artery without angina pectoris (2) Diabetes mellitus SNOMED Code(s): 08794927 Code(s): E11.9 - TYPE 2 DIABETES MELLITUS WITHOUT COMPLICATIONS Status: Chronic Priority: Medium Current Visit: Yes Qualifiers: Diabetes mellitus type: type 2 Diabetes mellitus buttermaker insulin use: without custodial use Diabetes mellitus complication status: with unspecified complications Qualified Code(s): E11.8 - Type 2 diabetes mellitus with unspecified complications (3) GERD (gastroesophageal reflux disease) SNOMED Code(s): 823340206 Code(s): K21.9 - GASTRO-ESOPHAGEAL REFLUX DISEASE WITHOUT ESOPHAGITIS Status: Chronic Priority: Medium Current Visit: No Qualifiers: Esophagitis presence: esophagitis presence not specified Qualified Code(s) : K21.9 - Gastro-esophageal reflux disease without esophagitis (4) Hypertension SNOMED Code(s): 43988487 Code(s): I10 - ESSENTIAL (PRIMARY) HYPERTENSION Status: Chronic Priority : Medium Current Visit: Yes Qualifiers: Hypertension type: unspecified Qualified Code(s): I10 - Essential (primary ) hypertension (5) Pulmonary hypertension SNOMED Code(s): 77378458 Code(s): I27.20 - PULMONARY HYPERTENSION, UNSPECIFIED Status: Chronic Priority: Medium Current Visit: No (6) Symptomatic bradycardia SNOMED Code(s): 29394912, 120024482 Code(s): R00.1 - BRADYCARDIA, UNSPECIFIED Status: Acute Priority: High Current Visit: Yes (7) Afib, Atrial fibrillation and flutter SNOMED Code(s): 683989407 Code(s): I48.91 - UNSPECIFIED ATRIAL FIBRILLATION; I48.92 - UNSPECIFIED ATRIAL FLUTTER Status: Chronic Priority: Medium Current Visit: No (8) Chronic congestive heart failure, CHF SNOMED Code(s): 25537042 Code(s): I50.9 - HEART FAILURE, UNSPECIFIED Status: Acute Priority: High Current Visit: Yes (9) Pulmonary congestion SNOMED Code(s): 78724090 Code(s): R09.89 - OTH SYMPTOMS AND SIGNS INVOLVING THE CIRC AND RESP SYSTEMS Status: Acute Priority: High Current Visit: Yes - Problem List Review Problem List Initiated/Reviewed/Updated: Yes - Plan Plan:: Impression: Symptomatic bradycardia with A fib on long acting BB, improved Progressive SOB after travel to [facility] History of pulmonary hypertension, functional status declining Hypoxia, room air at 88-90% on RA; improving Pneumonia vs. atelectasis- slight parenchymal density noted on left side of heart on CXR -CT in AM to further evaluate -WBC and CRP WNL Chronic: A-Fib on Coumadin DM type II HTN GERD DHF CAD HTN HLD Plan: Hold BB, follow response - resume Atypical PNA coverage, doxycycline Ischemic work up Hold Metformin use SS insulin and QID AC and Bed glucose checks Echo 02/22/18 Continue Coumadin, follow INR. Infectious work up Home meds Daily Labs DVT/GI prophylaxis CM/PT/OT
[2018-02-21] MEDS ORDERED: 50% Dextrose in Water 50 ML Syringe IVPUSH PRN (17:09)
[2018-02-21] MEDS ORDERED: Metoprolol Succinate 50 MG Tab.ER PO SCH (18:00)
[2018-02-21] MEDS: Warfarin 2.5 MG Tab PO SCH (18:14)
[2018-02-21] MEDS: Simvastatin 20 MG Tab PO SCH (20:18)
[2018-02-21] MEDS: methylPREDNISolone Sodium Succinate 125 MG/2 ML SDV IVPUSH SCH (20:19)
[2018-02-21] MEDS ORDERED: cefTRIAXone 1 GM in Sodium Chloride 0.9% 100 ML IV SCH (20:30)
[2018-02-21] MEDS: Insulin Aspart 100 Units/ML 3 ML Pen SUBCUT SCH (22:31)
[2018-02-22] MEDS: Acetaminophen 325 MG Tab PO PRN ×4 (05:41→21:57)
[2018-02-22] MEDS: hydrALAZINE 20 MG/ML SDV IVPUSH PRN (05:42)
[2018-02-22] MEDS: Ondansetron 4 MG/2 ML SDV IVPUSH PRN ×2 (06:32→12:58)
[2018-02-22] MEDS: Doxycycline 100 MG Cap PO SCH ×2 (08:03→20:43)
[2018-02-22] MEDS: Insulin Aspart 100 Units/ML 3 ML Pen SUBCUT SCH ×4 (08:03→21:00)
[2018-02-22] MEDS: Potassium Chloride 20 MEQ Tab.ER PO SCH (08:03)
[2018-02-22] MEDS: methylPREDNISolone Sodium Succinate 125 MG/2 ML SDV IVPUSH SCH (08:03)
[2018-02-22] MEDS ORDERED: Sodium Chloride 0.9% 10 ML Syringe FLUSH ONE (08:46)
[2018-02-22] MEDS ORDERED: Iopamidol 612 MG/ML 100 ML Bottle IVPUSH ONE (08:46)
--- NOTE | 2018-02-22 10:31 | CT ---
CT chest (without and with intravenous contrast) Technique: Multiple axial sections through the chest were obtained. Study obtained without and with intravenous contrast. Comparison: Previous CT chest study of 12/20/14. Findings: Right thyroid nodule is seen measuring 2.0 cm. This is not well seen on prior study but is felt to be increased in size on current study. Atherosclerotic calcification is noted within the aorta. No aneurysm is seen. Small normal-appearing mediastinal lymph nodes are noted. Heart is enlarged. Minimal pericardial effusion or pericardial thickening is seen. This finding is stable from prior exam. Small low-density lesion is seen within the dome of the right lobe of the liver measuring about 1.2 cm in size which is stable from prior CT exam. Pulmonary arteries are slightly prominent in size which appear stable from previous CT exam. Slight scarring is noted within the lingula and left base. No acute parenchymal change is seen. Bone window settings show diffuse degenerative change within the spine with scoliosis. Deformity noted of the lower ribs on both sides compatible with old fractures. Impression: 1. Increased size of the pulmonary arteries which remain stable from prior CT exam and is felt to be incidental. 2. Nodule within the right lobe of the thyroid gland which is likely benign. 3. Other incidental findings as noted above. Diagnostic code #2
[2018-02-22] MEDS ORDERED: methylPREDNISolone Sodium Succinate 40 MG/1 ML SDV IVPUSH SCH (10:50)
[2018-02-22] MEDS ORDERED: Furosemide 20 MG/2 ML VIAL IVPUSH ONE (13:30)
--- NOTE | 2018-02-22 13:37 | PCM.PN ---
- General Info Date of Service: 02/22/18 Functional Status: Reports: Tolerating Diet, Urinating - Review of Systems General: Reports: Weakness HEENT: Reports: No Symptoms Pulmonary: Reports: Shortness of Breath Cardiovascular: Reports: No Symptoms Gastrointestinal: Reports: No Symptoms Genitourinary: Reports: No Symptoms Musculoskeletal: Reports: No Symptoms Skin: Reports: No Symptoms Neurological: Reports: No Symptoms Psychiatric: Reports: No Symptoms - Patient Data Vitals - Most Recent: Last Vital Signs Temp 36.6 C 02/22/18 11:37 Pulse 68 02/22/18 11:37 Resp 20 02/22/18 11:37 BP 117/69 02/22/18 11:37 Pulse Ox 91 L 02/22/18 11:37 Weight - Most Recent: 108.046 kg I&O - Last 24 Hours: Intake & Output 02/21/18 02/22/18 02/22/18 22:59 06:59 14:59 Intake Total 900 600 300 Output Total 800 1100 Balance 100 -500 300 Lab Results Last 24 Hours: Laboratory Results - last 24 hr 02/21/18 02/21/18 02/22/18 Range/Units 17:00 22:17 04:38 WBC 6.93 (3.98-10.04) K/mm3 RBC 4.91 (3.98-5.22) M/mm3 Hgb 14.2 (11.2-15.7) gm/L Hct 43.8 (34.1-44.9) % MCV 89.2 (79.4-94.8) fl MCH 28.9 (25.6-32.2) pg MCHC 32.4 (32.2-35.5) g/dl RDW Std Deviation 48.6 H (36.4-46.3) fL Plt Count 203 (182-369) K/mm3 MPV 10.0 (9.4-12.3) fl Neut % (Auto) 87.1 H (34.0-71.1) % Lymph % (Auto) 9.8 L (19.3-51.7) % [place] % (Auto) 3.0 L (4.7-12.5) % Eos % (Auto) 0 L (0.7-5.8) Baso % (Auto) 0.0 L (0.1-1.2) % Neut # (Auto) 6.03 (1.56-6.13) K/mm3 Lymph # (Auto) 0.68 L (1.18-3.74) K/mm3 [place] # (Auto) 0.21 L (0.24-0.36) K/mm3 Eos # (Auto) 0.00 L (0.04-0.36) K/mm3 Baso # (Auto) 0.00 L (0.01-0.08) K/mm3 Manual Slide Review Abnormal smear PT (8.0-13.0) SECONDS INR Sodium (136-145) mEq/L Potassium (3.5-5.1) mEq/L Chloride (98-107) mEq/L Carbon Dioxide (21-32) mEq/L Anion Gap (5-15) BUN (7-18) mg/dL Creatinine (0.55-1.02) mg/dL Est Cr Clr Drug Dosing mL/min Estimated GFR (MDRD) (>60) mL/min BUN/Creatinine Ratio (14-18) Glucose (83-115) mg/dL POC Glucose 252 H 215 H (83-110) mg/dL Lactic Acid (0.4-2.0) mmol/L Calcium (8.5-10.1) mg/dL Magnesium (1.8-2.4) mg/dl C-Reactive Protein (<1.0) mg/dL NT-Pro-B Natriuret Pep (0-450) pg/mL 02/22/18 02/22/18 02/22/18 Range/Units 04:38 04:38 04:38 WBC (3.98-10.04) K/mm3 RBC (3.98-5.22) M/mm3 Hgb (11.2-15.7) gm/L Hct (34.1-44.9) % MCV (79.4-94.8) fl MCH (25.6-32.2) pg MCHC (32.2-35.5) g/dl RDW Std Deviation (36.4-46.3) fL Plt Count (182-369) K/mm3 MPV (9.4-12.3) fl Neut % (Auto) (34.0-71.1) % Lymph % (Auto) (19.3-51.7) % [place] % (Auto) (4.7-12.5) % Eos % (Auto) (0.7-5.8) Baso % (Auto) (0.1-1.2) % Neut # (Auto) (1.56-6.13) K/mm3 Lymph # (Auto) (1.18-3.74) K/mm3 [place] # (Auto) (0.24-0.36) K/mm3 Eos # (Auto) (0.04-0.36) K/mm3 Baso # (Auto) (0.01-0.08) K/mm3 Manual Slide Review PT 17.1 H (8.0-13.0) SECONDS INR 1.59 Sodium 138 (136-145) mEq/L Potassium 4.5 (3.5-5.1) mEq/L Chloride 103 (98-107) mEq/L Carbon Dioxide 27 (21-32) mEq/L Anion Gap 12.5 (5-15) BUN 21 H (7-18) mg/dL Creatinine 0.8 (0.55-1.02) mg/dL Est Cr Clr Drug Dosing 43.59 mL/min Estimated GFR (MDRD) > 60 (>60) mL/min BUN/Creatinine Ratio 26.3 H (14-18) Glucose 228 H (83-115) mg/dL POC Glucose (83-110) mg/dL Lactic Acid 2.2 H (0.4-2.0) mmol/L Calcium 9.1 (8.5-10.1) mg/dL Magnesium 2.2 (1.8-2.4) mg/dl C-Reactive Protein < 0.2 (<1.0) mg/dL NT-Pro-B Natriuret Pep (0-450) pg/mL 02/22/18 02/22/18 02/22/18 Range/Units 06:39 11:15 11:15 WBC (3.98-10.04) K/mm3 RBC (3.98-5.22) M/mm3 Hgb (11.2-15.7) gm/L Hct (34.1-44.9) % MCV (79.4-94.8) fl MCH (25.6-32.2) pg MCHC (32.2-35.5) g/dl RDW Std Deviation (36.4-46.3) fL Plt Count (182-369) K/mm3 MPV (9.4-12.3) fl Neut % (Auto) (34.0-71.1) % Lymph % (Auto) (19.3-51.7) % [place] % (Auto) (4.7-12.5) % Eos % (Auto) (0.7-5.8) Baso % (Auto) (0.1-1.2) % Neut # (Auto) (1.56-6.13) K/mm3 Lymph # (Auto) (1.18-3.74) K/mm3 [place] # (Auto) (0.24-0.36) K/mm3 Eos # (Auto) (0.04-0.36) K/mm3 Baso # (Auto) (0.01-0.08) K/mm3 Manual Slide Review PT (8.0-13.0) SECONDS INR Sodium 137 (136-145) mEq/L Potassium 4.9 (3.5-5.1) mEq/L Chloride 101 (98-107) mEq/L Carbon Dioxide 27 (21-32) mEq/L Anion Gap 13.9 (5-15) BUN 26 H (7-18) mg/dL Creatinine 0.9 (0.55-1.02) mg/dL Est Cr Clr Drug Dosing 38.75 mL/min Estimated GFR (MDRD) 59 (>60) mL/min BUN/Creatinine Ratio 28.9 H (14-18) Glucose 231 H (83-115) mg/dL POC Glucose 203 H (83-110) mg/dL Lactic Acid (0.4-2.0) mmol/L Calcium 9.5 (8.5-10.1) mg/dL Magnesium (1.8-2.4) mg/dl C-Reactive Protein (<1.0) mg/dL NT-Pro-B Natriuret Pep 723 H (0-450) pg/mL 02/22/18 Range/Units 11:18 WBC (3.98-10.04) K/mm3 RBC (3.98-5.22) M/mm3 Hgb (11.2-15.7) gm/L Hct (34.1-44.9) % MCV (79.4-94.8) fl MCH (25.6-32.2) pg MCHC (32.2-35.5) g/dl RDW Std Deviation (36.4-46.3) fL Plt Count (182-369) K/mm3 MPV (9.4-12.3) fl Neut % (Auto) (34.0-71.1) % Lymph % (Auto) (19.3-51.7) % [place] % (Auto) (4.7-12.5) % Eos % (Auto) (0.7-5.8) Baso % (Auto) (0.1-1.2) % Neut # (Auto) (1.56-6.13) K/mm3 Lymph # (Auto) (1.18-3.74) K/mm3 [place] # (Auto) (0.24-0.36) K/mm3 Eos # (Auto) (0.04-0.36) K/mm3 Baso # (Auto) (0.01-0.08) K/mm3 Manual Slide Review PT (8.0-13.0) SECONDS INR Sodium (136-145) mEq/L Potassium (3.5-5.1) mEq/L Chloride (98-107) mEq/L Carbon Dioxide (21-32) mEq/L Anion Gap (5-15) BUN (7-18) mg/dL Creatinine (0.55-1.02) mg/dL Est Cr Clr Drug Dosing mL/min Estimated GFR (MDRD) (>60) mL/min BUN/Creatinine Ratio (14-18) Glucose (83-115) mg/dL POC Glucose 222 H (83-110) mg/dL Lactic Acid (0.4-2.0) mmol/L Calcium (8.5-10.1) mg/dL Magnesium (1.8-2.4) mg/dl C-Reactive Protein (<1.0) mg/dL NT-Pro-B Natriuret Pep (0-450) pg/mL Dexter Results Last 24 Hours: Microbiology 02/21/18 16:40 Influenza Type A Antigen Screen - Final Nasopharyngeal Swab NEGATIVE INFLUENZA A VIRUS AG Influenza Type B Antigen Screen - Final NEGATIVE INFLUENZA B VIRUS AG Med Orders - Current: Current Medications Acetaminophen (Tylenol) 650 mg PO Q4H PRN PRN Reason: Pain Last Admin: 02/22/18 11:33 Dose: 650 mg Dextrose/Water (Dextrose 50% In Water) 50 ml IVPUSH ASDIRECTED PRN PRN Reason: Hypoglycemia Doxycycline Hyclate (Vibramycin) 100 mg PO BID [facility] Last Admin: 02/22/18 08:03 Dose: 100 mg Hydralazine HCl (Apresoline) 20 mg IVPUSH Q6H PRN PRN Reason: Hypertension Last Admin: 02/22/18 05:42 Dose: 20 mg Insulin Aspart (Novolog) 0 unit SUBCUT QIDACANDBED [facility]; Protocol Last Admin: 02/22/18 11:32 Dose: 2 units Methylprednisolone Sodium Succinate (Solu-Medrol) 80 mg IVPUSH Q12H [facility] Metoprolol Succinate (Toprol Xl) 50 mg PO QPM [facility] Last Admin: 02/21/18 18:14 Dose: 50 mg Nitroglycerin (Nitrostat) 0.4 mg SL ASDIRECTED PRN PRN Reason: Chest Pain Ondansetron HCl (Zofran) 4 mg IVPUSH Q4HR PRN PRN Reason: Nausea/Vomiting Last Admin: 02/22/18 12:58 Dose: 4 mg Pantoprazole Sodium (Protonix) 40 mg PO DAILY PRN PRN Reason: reflux Potassium Chloride (Klor-Con M20) 20 meq PO DAILY [facility] Last Admin: 02/22/18 08:03 Dose: 20 meq Simvastatin (Zocor) 20 mg PO BEDTIME [facility] Last Admin: 02/21/18 20:18 Dose: 20 mg Sodium Chloride (Saline Flush) 10 ml FLUSH ASDIRECTED PRN PRN Reason: Keep Vein Open Last Admin: 02/20/18 15:10 Dose: 10 ml Warfarin Sodium (Coumadin) 2.5 mg PO DAILY@1800 [facility] Last Admin: 02/21/18 18:14 Dose: 2.5 mg Discontinued Medications Furosemide (Lasix) 20 mg IVPUSH NOW ONE Stop: 02/22/18 13:31 Doxycycline Hyclate 100 mg/ (Sodium Chloride) 100 mls @ 100 mls/hr IV Q12HR [facility] Last Admin: 02/20/18 22:16 Dose: 100 mls/hr Magnesium Sulfate 2 gm/ Premix 50 mls @ 25 mls/hr IV ONETIME ONE Stop: 02/20/18 23:15 Last Admin: 02/20/18 22:16 Dose: 25 mls/hr Doxycycline Hyclate 100 mg/ (Dextrose/Water) 100 mls @ 100 mls/hr IV Q12HR [facility] Doxycycline Hyclate 100 mg/ (Dextrose/Water) 100 mls @ 100 mls/hr IV Q12HR [facility] Stop: 02/21/18 23:00 Last Admin: 02/21/18 20:20 Dose: 100 mls/hr Ceftriaxone Sodium 1 gm/ (Sodium Chloride) 100 mls @ 200 mls/hr IV Q24H [facility] Iopamidol (Isovue-300 (61%)) 80 ml IVPUSH ONETIME ONE Stop: 02/22/18 08:47 Last Admin: 02/22/18 09:56 Dose: 80 ml Methylprednisolone Sodium Succinate (Solu-Medrol) 80 mg IVPUSH Q12H [facility] Last Admin: 02/21/18 09:39 Dose: 80 mg Methylprednisolone Sodium Succinate (Solu-Medrol) 125 mg IVPUSH Q12H [facility] Last Admin: 02/22/18 08:03 Dose: 125 mg Methylprednisolone Sodium Succinate (Solu-Medrol) 80 mg IVPUSH Q12H [facility] Sodium Chloride (Saline Flush) 10 ml FLUSH ONETIME ONE Stop: 02/22/18 08:47 Last Admin: 02/22/18 09:58 Dose: 10 ml - Exam Quality Assessment: Supplemental Oxygen, DVT Prophylaxis General: Alert, Oriented, Cooperative, No Acute Distress HEENT: Pupils Equal, Pupils Reactive, EOMI Neck: Trachea Midline, No JVD Lungs: Normal Respiratory Effort Cardiovascular: Regular Rate, Regular Rhythm GI/Abdominal Exam: Normal Bowel Sounds, Soft, Non-Tender, No Organomegaly, No Distention (Female) Exam: Deferred Back Exam: Normal Inspection Extremities: Normal Inspection, Non-Tender Skin: Warm Neurological: No New Focal Deficit Psy/Mental Status: Alert, Normal Affect, Normal Mood - Problem List & Annotations (1) CAD (coronary artery disease) SNOMED Code(s): 02753565 Code(s): I25.10 - ATHSCL HEART DISEASE OF [place] CORONARY ARTERY W/O ANG PCTRS Status: Chronic Priority: Medium Current Visit: Yes Qualifiers: Coronary Disease-Associated Artery/Lesion type: unspecified vessel or lesion type [place] vs. transplanted heart: unspecified whether [place] or transplanted heart Associated angina: angina presence unspecified Qualified Code(s): I25.10 - Atherosclerotic heart disease of [place] coronary artery without angina pectoris (2) Hypertension SNOMED Code(s): 95975941 Code(s): I10 - ESSENTIAL (PRIMARY) HYPERTENSION Status: Chronic Priority : Medium Current Visit: Yes Qualifiers: Hypertension type: unspecified Qualified Code(s): I10 - Essential (primary ) hypertension (3) Diabetes mellitus SNOMED Code(s): 83381956 Code(s): E11.9 - TYPE 2 DIABETES MELLITUS WITHOUT COMPLICATIONS Status: Chronic Priority: Medium Current Visit: Yes Qualifiers: Diabetes mellitus type: type 2 Diabetes mellitus [facility] insulin use: without intermission coordinator use Diabetes mellitus complication status: with unspecified complications Qualified Code(s): E11.8 - Type 2 diabetes mellitus with unspecified complications (4) GERD (gastroesophageal reflux disease) SNOMED Code(s): 937271630 Code(s): K21.9 - GASTRO-ESOPHAGEAL REFLUX DISEASE WITHOUT ESOPHAGITIS Status: Chronic Priority: Medium Current Visit: No Qualifiers: Esophagitis presence: esophagitis presence not specified Qualified Code(s) : K21.9 - Gastro-esophageal reflux disease without esophagitis (5) Pulmonary hypertension SNOMED Code(s): 59598200 Code(s): I27.20 - PULMONARY HYPERTENSION, UNSPECIFIED Status: Chronic Priority: Medium Current Visit: No (6) Symptomatic bradycardia SNOMED Code(s): 99731854, 851964871 Code(s): R00.1 - BRADYCARDIA, UNSPECIFIED Status: Acute Priority: High Current Visit: Yes (7) Afib, Atrial fibrillation and flutter SNOMED Code(s): 529149770 Code(s): I48.91 - UNSPECIFIED ATRIAL FIBRILLATION; I48.92 - UNSPECIFIED ATRIAL FLUTTER Status: Chronic Priority: Medium Current Visit: No (8) Chronic congestive heart failure, CHF SNOMED Code(s): 19419041 Code(s): I50.9 - HEART FAILURE, UNSPECIFIED Status: Acute Priority: High Current Visit: Yes (9) Pulmonary congestion SNOMED Code(s): 25559045 Code(s): R09.89 - OTH SYMPTOMS AND SIGNS INVOLVING THE CIRC AND RESP SYSTEMS Status: Acute Priority: High Current Visit: Yes (10) Pulmonary hypertension SNOMED Code(s): 95625856 Code(s): I27.2 - OTHER SECONDARY PULMONARY HYPERTENSION * DO NOT USE * Status: Acute Current Visit: No - Problem List Review Problem List Initiated/Reviewed/Updated: Yes - My Orders Last 24 Hours: My Active Orders 02/21/18 13:01 hydrALAZINE [Apresoline] 20 mg IVPUSH Q6H PRN 02/21/18 14:33 Acetaminophen [Tylenol] 650 mg PO Q4H PRN 02/21/18 18:00 Metoprolol Succinate [Toprol XL] 50 mg PO QPM Warfarin [Coumadin] 2.5 mg PO DAILY@1800 02/21/18 20:05 STREP PNEUMONIAE ANTIGEN [MREF] Routine 02/22/18 06:22 Ondansetron [Zofran] 4 mg IVPUSH Q4HR PRN 02/22/18 09:00 Doxycycline [Vibramycin] 100 mg PO BID 02/22/18 21:00 methylPREDNISolone Sod Succ [Solu-MEDROL] 80 mg IVPUSH Q12H 02/23/18 05:00 BMP [BASIC METABOLIC PANEL,BMP] [CHEM] DAILY CBC WITH AUTO DIFF [HEME] DAILY CRP [C-REACTIVE PROTEIN] [CHEM] DAILY INR,PT,PROTHROMBIN TIME [COAG] DAILY LACTIC ACID [CHEM] DAILY MAGNESIUM [CHEM] DAILY 02/24/18 05:00 BMP [BASIC METABOLIC PANEL,BMP] [CHEM] DAILY CBC WITH AUTO DIFF [HEME] DAILY CRP [C-REACTIVE PROTEIN] [CHEM] DAILY INR,PT,PROTHROMBIN TIME [COAG] DAILY LACTIC ACID [CHEM] DAILY MAGNESIUM [CHEM] DAILY - Plan Plan:: Impression: Symptomatic bradycardia with A fib on long acting BB, improved Progressive SOB after travel to [facility] History of pulmonary hypertension, functional status declining Hypoxia, room air at 88-90% on RA; improving Pneumonia vs. atelectasis- slight parenchymal density noted on left side of heart on CXR -CT in AM to further evaluate -WBC and CRP WNL Chronic: A-Fib on Coumadin DM type II HTN GERD DHF CAD HTN HLD Plan: Hold BB, follow response - resume Atypical PNA coverage, doxycycline Ischemic work up Hold Metformin use SS insulin and QID AC and Bed glucose checks Echo 02/22/18 Continue Coumadin, follow INR. Infectious work up Home meds Daily Labs DVT/GI prophylaxis CM/PT/OT
[2018-02-22] MEDS: Warfarin 2.5 MG Tab PO SCH (17:32)
[2018-02-22] MEDS: methylPREDNISolone Sodium Succinate 40 MG/1 ML SDV IVPUSH SCH (20:43)
[2018-02-22] MEDS: Simvastatin 20 MG Tab PO SCH (20:43)
[2018-02-23] MEDS: Acetaminophen 325 MG Tab PO PRN ×5 (04:03→21:37)
[2018-02-23] MEDS: hydrALAZINE 20 MG/ML SDV IVPUSH PRN (04:46)
[2018-02-23] MEDS: Insulin Aspart 100 Units/ML 3 ML Pen SUBCUT SCH ×4 (07:28→21:39)
[2018-02-23] MEDS: Potassium Chloride 20 MEQ Tab.ER PO SCH (08:40)
[2018-02-23] MEDS: methylPREDNISolone Sodium Succinate 40 MG/1 ML SDV IVPUSH SCH (08:42)
[2018-02-23] MEDS: Doxycycline 100 MG Cap PO SCH ×2 (08:42→21:38)
[2018-02-23] MEDS: metFORMIN 500 MG Tab PO SCH (12:26)
[2018-02-23] MEDS: Furosemide 40 MG Tab PO SCH (12:26)
[2018-02-23] MEDS: Losartan 25 MG Tab PO SCH (12:26)
--- NOTE | 2018-02-23 14:14 | PCM.PN ---
- General Info Date of Service: 02/23/18 Admission Dx/Problem (Free Text): Admission Diagnosis/Problem Admission Diagnosis/Problem Bradycardia Subjective Update: In to see Betty. She has just returned from a walk with nursing and did quite well. Will resume some of her meds now with some dosing changes as she has been hypertensive. She has no concerns or complaints. She is excited for a possible discharge tomorrow. Nursing has no concerns other than home meds. Functional Status: Reports: Pain Controlled, Tolerating Diet, Ambulating, Urinating, Incentive Spirometry. Denies: New Symptoms - Review of Systems General: Reports: Weakness (improving ), Fatigue (improving ). Denies: Malaise HEENT: Reports: No Symptoms Pulmonary: Reports: Shortness of Breath (improved to resolved ). Denies: Cough , Sputum, Wheezing Cardiovascular: Reports: Edema. Denies: Chest Pain, Palpitations, Dyspnea on Exertion, Lightheadedness Gastrointestinal: Reports: Constipation (will be given laxative today. ). Denies: Abdominal Pain, Diarrhea, Nausea, Vomiting Genitourinary: Reports: No Symptoms Musculoskeletal: Reports: No Symptoms Skin: Reports: No Symptoms Neurological: Reports: No Symptoms Psychiatric: Reports: No Symptoms - Patient Data Vitals - Most Recent: Last Vital Signs Temp 97.5 F 02/23/18 12:00 Pulse 92 02/23/18 13:39 Resp 16 02/23/18 12:00 BP 158/88 H 02/23/18 13:38 Pulse Ox 94 L 02/23/18 13:39 Weight - Most Recent: 237 lb 9 oz I&O - Last 24 Hours: Intake & Output 02/22/18 02/23/18 02/23/18 22:59 06:59 14:59 Intake Total 540 600 180 Output Total 880 950 Balance -340 -350 180 Lab Results Last 24 Hours: Laboratory Results - last 24 hr 02/22/18 02/22/18 02/23/18 Range/Units 17:26 20:38 06:21 WBC 7.40 (3.98-10.04) K/mm3 RBC 4.90 (3.98-5.22) M/mm3 Hgb 14.2 (11.2-15.7) gm/L Hct 44.3 (34.1-44.9) % MCV 90.4 (79.4-94.8) fl MCH 29.0 (25.6-32.2) pg MCHC 32.1 L (32.2-35.5) g/dl RDW Std Deviation 50.5 H (36.4-46.3) fL Plt Count 215 (182-369) K/mm3 MPV 10.0 (9.4-12.3) fl Neut % (Auto) 89.1 H (34.0-71.1) % Lymph % (Auto) 7.3 L (19.3-51.7) % Bartholomew % (Auto) 3.5 L (4.7-12.5) % Eos % (Auto) 0 L (0.7-5.8) Baso % (Auto) 0.0 L (0.1-1.2) % Neut # (Auto) 6.59 H (1.56-6.13) K/mm3 Lymph # (Auto) 0.54 L (1.18-3.74) K/mm3 [place]omew # (Auto) 0.26 (0.24-0.36) K/mm3 Eos # (Auto) 0.00 L (0.04-0.36) K/mm3 Baso # (Auto) 0.00 L (0.01-0.08) K/mm3 Manual Slide Review Abnormal smear PT (8.0-13.0) SECONDS INR Sodium (136-145) mEq/L Potassium (3.5-5.1) mEq/L Chloride (98-107) mEq/L Carbon Dioxide (21-32) mEq/L Anion Gap (5-15) BUN (7-18) mg/dL Creatinine (0.55-1.02) mg/dL Est Cr Clr Drug Dosing mL/min Estimated GFR (MDRD) (>60) mL/min BUN/Creatinine Ratio (14-18) Glucose (83-115) mg/dL POC Glucose 189 H 226 H (83-110) mg/dL Lactic Acid (0.4-2.0) mmol/L Calcium (8.5-10.1) mg/dL Magnesium (1.8-2.4) mg/dl C-Reactive Protein (<1.0) mg/dL 02/23/18 02/23/18 02/23/18 Range/Units 06:21 06:21 06:21 WBC (3.98-10.04) K/mm3 RBC (3.98-5.22) M/mm3 Hgb (11.2-15.7) gm/L Hct (34.1-44.9) % MCV (79.4-94.8) fl MCH (25.6-32.2) pg MCHC (32.2-35.5) g/dl RDW Std Deviation (36.4-46.3) fL Plt Count (182-369) K/mm3 MPV (9.4-12.3) fl Neut % (Auto) (34.0-71.1) % Lymph % (Auto) (19.3-51.7) % [place]omew % (Auto) (4.7-12.5) % Eos % (Auto) (0.7-5.8) Baso % (Auto) (0.1-1.2) % Neut # (Auto) (1.56-6.13) K/mm3 Lymph # (Auto) (1.18-3.74) K/mm3 [place]omew # (Auto) (0.24-0.36) K/mm3 Eos # (Auto) (0.04-0.36) K/mm3 Baso # (Auto) (0.01-0.08) K/mm3 Manual Slide Review PT 23.9 H (8.0-13.0) SECONDS INR 2.22 Sodium 139 (136-145) mEq/L Potassium 4.6 (3.5-5.1) mEq/L Chloride 103 (98-107) mEq/L Carbon Dioxide 29 (21-32) mEq/L Anion Gap 11.6 (5-15) BUN 30 H (7-18) mg/dL Creatinine 0.9 (0.55-1.02) mg/dL Est Cr Clr Drug Dosing 38.75 mL/min Estimated GFR (MDRD) 59 (>60) mL/min BUN/Creatinine Ratio 33.3 H (14-18) Glucose 233 H (83-115) mg/dL POC Glucose (83-110) mg/dL Lactic Acid 2.4 H (0.4-2.0) mmol/L Calcium 9.3 (8.5-10.1) mg/dL Magnesium 2.1 (1.8-2.4) mg/dl C-Reactive Protein < 0.2 (<1.0) mg/dL 02/23/18 02/23/18 Range/Units 06:31 11:08 WBC (3.98-10.04) K/mm3 RBC (3.98-5.22) M/mm3 Hgb (11.2-15.7) gm/L Hct (34.1-44.9) % MCV (79.4-94.8) fl MCH (25.6-32.2) pg MCHC (32.2-35.5) g/dl RDW Std Deviation (36.4-46.3) fL Plt Count (182-369) K/mm3 MPV (9.4-12.3) fl Neut % (Auto) (34.0-71.1) % Lymph % (Auto) (19.3-51.7) % [place] % (Auto) (4.7-12.5) % Eos % (Auto) (0.7-5.8) Baso % (Auto) (0.1-1.2) % Neut # (Auto) (1.56-6.13) K/mm3 Lymph # (Auto) (1.18-3.74) K/mm3 [place]w # (Auto) (0.24-0.36) K/mm3 Eos # (Auto) (0.04-0.36) K/mm3 Baso # (Auto) (0.01-0.08) K/mm3 Manual Slide Review PT (8.0-13.0) SECONDS INR Sodium (136-145) mEq/L Potassium (3.5-5.1) mEq/L Chloride (98-107) mEq/L Carbon Dioxide (21-32) mEq/L Anion Gap (5-15) BUN (7-18) mg/dL Creatinine (0.55-1.02) mg/dL Est Cr Clr Drug Dosing mL/min Estimated GFR (MDRD) (>60) mL/min BUN/Creatinine Ratio (14-18) Glucose (83-115) mg/dL POC Glucose 210 H 233 H (83-110) mg/dL Lactic Acid (0.4-2.0) mmol/L Calcium (8.5-10.1) mg/dL Magnesium (1.8-2.4) mg/dl C-Reactive Protein (<1.0) mg/dL Dexter Results Last 24 Hours: Microbiology 02/21/18 20:05 Streptococcus pneumoniae Antigen (M - Final Urine 02/21/18 17:00 Respiratory Virus Panel (PCR) - Final Nasopharyngeal Swab Med Orders - Current: Current Medications Acetaminophen (Tylenol) 650 mg PO Q4H PRN PRN Reason: Pain Last Admin: 02/23/18 12:33 Dose: 650 mg Dextrose/Water (Dextrose 50% In Water) 50 ml IVPUSH ASDIRECTED PRN PRN Reason: Hypoglycemia Doxycycline Hyclate (Vibramycin) 100 mg PO BID [facility] Last Admin: 02/23/18 08:42 Dose: 100 mg Furosemide (Lasix) 40 mg PO DAILY [facility] Last Admin: 02/23/18 12:26 Dose: 40 mg Hydralazine HCl (Apresoline) 20 mg IVPUSH Q6H PRN PRN Reason: Hypertension Last Admin: 02/23/18 04:46 Dose: 20 mg Insulin Aspart (Novolog) 0 unit SUBCUT QIDACANDBED [facility]; Protocol Last Admin: 02/23/18 11:36 Dose: 2 units Losartan Potassium (Cozaar) 25 mg PO DAILY [facility] Last Admin: 02/23/18 12:26 Dose: 25 mg Metformin HCl (Glucophage) 500 mg PO WITHBREAKFAST [facility] Last Admin: 02/23/18 12:26 Dose: 500 mg Metoprolol Succinate (Toprol Xl) 50 mg PO QPM [facility] Last Admin: 02/21/18 18:14 Dose: 50 mg Nitroglycerin (Nitrostat) 0.4 mg SL ASDIRECTED PRN PRN Reason: Chest Pain Ondansetron HCl (Zofran) 4 mg IVPUSH Q4HR PRN PRN Reason: Nausea/Vomiting Last Admin: 02/22/18 12:58 Dose: 4 mg Pantoprazole Sodium (Protonix) 40 mg PO DAILY PRN PRN Reason: reflux Potassium Chloride (Klor-Con M20) 20 meq PO DAILY [facility] Last Admin: 02/23/18 08:40 Dose: 20 meq Prednisone (Prednisone) 60 mg PO DAILY [facility] Simvastatin (Zocor) 20 mg PO BEDTIME [facility] Last Admin: 02/22/18 20:43 Dose: 20 mg Sodium Chloride (Saline Flush) 10 ml FLUSH ASDIRECTED PRN PRN Reason: Keep Vein Open Last Admin: 02/20/18 15:10 Dose: 10 ml Warfarin Sodium (Coumadin) 2.5 mg PO DAILY@1800 [facility] Last Admin: 02/22/18 17:32 Dose: 2.5 mg Discontinued Medications Furosemide (Lasix) 20 mg IVPUSH NOW ONE Stop: 02/22/18 13:31 Last Admin: 02/22/18 14:10 Dose: 20 mg Doxycycline Hyclate 100 mg/ (Sodium Chloride) 100 mls @ 100 mls/hr IV Q12HR [facility] Last Admin: 02/20/18 22:16 Dose: 100 mls/hr Magnesium Sulfate 2 gm/ Premix 50 mls @ 25 mls/hr IV ONETIME ONE Stop: 02/20/18 23:15 Last Admin: 02/20/18 22:16 Dose: 25 mls/hr Doxycycline Hyclate 100 mg/ (Dextrose/Water) 100 mls @ 100 mls/hr IV Q12HR [facility] Doxycycline Hyclate 100 mg/ (Dextrose/Water) 100 mls @ 100 mls/hr IV Q12HR [facility] Stop: 02/21/18 23:00 Last Admin: 02/21/18 20:20 Dose: 100 mls/hr Ceftriaxone Sodium 1 gm/ (Sodium Chloride) 100 mls @ 200 mls/hr IV Q24H [facility] Iopamidol (Isovue-300 (61%)) 80 ml IVPUSH ONETIME ONE Stop: 02/22/18 08:47 Last Admin: 02/22/18 09:56 Dose: 80 ml Methylprednisolone Sodium Succinate (Solu-Medrol) 80 mg IVPUSH Q12H [facility] Last Admin: 02/21/18 09:39 Dose: 80 mg Methylprednisolone Sodium Succinate (Solu-Medrol) 125 mg IVPUSH Q12H [facility] Last Admin: 02/22/18 08:03 Dose: 125 mg Methylprednisolone Sodium Succinate (Solu-Medrol) 80 mg IVPUSH Q12H [facility] Methylprednisolone Sodium Succinate (Solu-Medrol) 80 mg IVPUSH Q12H [facility] Last Admin: 02/23/18 08:42 Dose: 80 mg Sodium Chloride (Saline Flush) 10 ml FLUSH ONETIME ONE Stop: 02/22/18 08:47 Last Admin: 02/22/18 09:58 Dose: 10 ml - Exam Quality Assessment: DVT Prophylaxis General: Alert, Oriented, Cooperative, No Acute Distress HEENT: Pupils Equal, Pupils Reactive, EOMI, Mucous Membr. Moist/[place] Neck: Supple, Trachea Midline, No JVD Lungs: Clear to Auscultation, Normal Respiratory Effort Cardiovascular: Regular Rate, Regular Rhythm, No Murmurs GI/Abdominal Exam: Normal Bowel Sounds, Soft, Non-Tender, No Organomegaly, No Distention, No Abnormal Bruit, No Mass, Pelvis Stable Back Exam: Normal Inspection, Full Range of Motion Extremities: Normal Inspection, Normal Range of Motion, Non-Tender, Normal Capillary Refill, Pedal Edema (trace to 1+ bilaterlly - now equil across both legs ) Peripheral Pulses: 2+: Radial (L), Radial (R), Posterior Tibial (L), Posterior Tibial (R), Dorsalis Pedis (L), Dorsalis Pedis (R) Skin: Warm, Dry, Intact Neurological: No New Focal Deficit Psy/Mental Status: Alert, Normal Affect, Normal Mood - Problem List & Annotations (1) CAD (coronary artery disease) SNOMED Code(s): 05097520 Code(s): I25.10 - ATHSCL HEART DISEASE OF [place] CORONARY ARTERY W/O ANG PCTRS Status: Chronic Priority: Medium Current Visit: Yes Qualifiers: Coronary Disease-Associated Artery/Lesion type: unspecified vessel or lesion type [place] vs. transplanted heart: unspecified whether [place] or transplanted heart Associated angina: angina presence unspecified Qualified Code(s): I25.10 - Atherosclerotic heart disease of [place] coronary artery without angina pectoris (2) Diabetes mellitus SNOMED Code(s): 58565942 Code(s): E11.9 - TYPE 2 DIABETES MELLITUS WITHOUT COMPLICATIONS Status: Chronic Priority: Medium Current Visit: Yes Qualifiers: Diabetes mellitus type: type 2 Diabetes mellitus fci insulin use: without fci use Diabetes mellitus complication status: with unspecified complications Qualified Code(s): E11.8 - Type 2 diabetes mellitus with unspecified complications (3) GERD (gastroesophageal reflux disease) SNOMED Code(s): 254311660 Code(s): K21.9 - GASTRO-ESOPHAGEAL REFLUX DISEASE WITHOUT ESOPHAGITIS Status: Chronic Priority: Medium Current Visit: No Qualifiers: Esophagitis presence: esophagitis presence not specified Qualified Code(s) : K21.9 - Gastro-esophageal reflux disease without esophagitis (4) Hypertension SNOMED Code(s): 05367724 Code(s): I10 - ESSENTIAL (PRIMARY) HYPERTENSION Status: Chronic Priority : Medium Current Visit: Yes Qualifiers: Hypertension type: unspecified Qualified Code(s): I10 - Essential (primary ) hypertension (5) Pulmonary hypertension SNOMED Code(s): 88215188 Code(s): I27.20 - PULMONARY HYPERTENSION, UNSPECIFIED Status: Chronic Priority: Medium Current Visit: No (6) Symptomatic bradycardia SNOMED Code(s): 58035402, 826686562 Code(s): R00.1 - BRADYCARDIA, UNSPECIFIED Status: Acute Priority: High Current Visit: Yes (7) Afib, Atrial fibrillation and flutter SNOMED Code(s): 373376589 Code(s): I48.91 - UNSPECIFIED ATRIAL FIBRILLATION; I48.92 - UNSPECIFIED ATRIAL FLUTTER Status: Chronic Priority: Medium Current Visit: No (8) Chronic congestive heart failure, CHF SNOMED Code(s): 04211881 Code(s): I50.9 - HEART FAILURE, UNSPECIFIED Status: Acute Priority: High Current Visit: Yes (9) Pulmonary congestion SNOMED Code(s): 85187560 Code(s): R09.89 - OTH SYMPTOMS AND SIGNS INVOLVING THE CIRC AND RESP SYSTEMS Status: Acute Priority: High Current Visit: Yes (10) Thyroid nodule SNOMED Code(s): 684306328 Code(s): E04.1 - NONTOXIC SINGLE THYROID NODULE Status: Acute Priority: Medium Current Visit: Yes - Problem List Review Problem List Initiated/Reviewed/Updated: Yes - Plan Plan:: Impression: Symptomatic bradycardia with A fib on long acting BB, improved Progressive SOB after travel to [facility] History of pulmonary hypertension, functional status declining Hypoxia, room air at 88-90% on RA; improving Pneumonia vs. atelectasis- slight parenchymal density noted on left side of heart on CXR -CT on 02/23/18 to further evaluate - stable increased pulmonary artery density -Other incidental findings as mentioned below -WBC and CRP WNL Liver lesion -Small low-density lesion within the dome of the right lobe of the liver measuring 1.2 cm in size -Stable from prior CT -Defer to PCP to monitor Thyroid nodule -2.0 cm -[place] to be increased in size from prior study -TSH WNL -Defer to PCP for further work-up Chronic: A-Fib on Coumadin DM type II HTN GERD DHF CAD HTN HLD Plan: Hold BB, follow response - resume at 12.5mg BID Atypical PNA coverage, doxycycline Ischemic work up Hold Metformin use SS insulin and QID AC and Bed glucose checks - resume metformin Echo 02/22/18 -LVEF 60% -Mild septal left ventricular hypertrophy -Restrictive (grade 3) pattern of LV diastolic filling -No regional wall motion abnormalitis -Severely dilated left atrium -Mild aortic valve regurgitation -Mild tricuspid valve regurgitation -The right ventricular systolic pressure is moderately elevated at 49.2 mmHg Continue Coumadin, follow INR. Infectious work up - negative Home meds Daily Labs Solu-medrol - switch to PO prednisone today DVT/GI prophylaxis CM/PT/OT Holter monitor on discharge Recommend cardiology follow-up after discharge Code status: DNR/DNI; PCP: Dr. Bianca Camilo at [facility] Likely discharge tomorrow - 02/24/18.
[2018-02-23] MEDS ORDERED: Bisacodyl 5 MG Tab PO PRN (15:16)
[2018-02-23] MEDS: Warfarin 2.5 MG Tab PO SCH (17:28)
[2018-02-23] MEDS: Metoprolol Tartrate 25 MG Tab PO SCH (21:38)
[2018-02-23] MEDS: Simvastatin 20 MG Tab PO SCH (21:38)
[2018-02-24] MEDS: metFORMIN 500 MG Tab PO SCH (06:27)
[2018-02-24] MEDS: Insulin Aspart 100 Units/ML 3 ML Pen SUBCUT SCH (06:27)
[2018-02-24] MEDS: Metoprolol Tartrate 25 MG Tab PO SCH (08:40)
[2018-02-24] MEDS: Losartan 25 MG Tab PO SCH (08:40)
[2018-02-24] MEDS: Furosemide 40 MG Tab PO SCH (08:41)
[2018-02-24] MEDS: Doxycycline 100 MG Cap PO SCH (08:41)
[2018-02-24] MEDS: Potassium Chloride 20 MEQ Tab.ER PO SCH (08:41)
[2018-02-24 08:42] VITALS: BP 132/56
--- NOTE | 2018-02-24 08:56 | PCM.DCSUM1 ---
Discharge Summary - Hospital Course Free Text/Narrative:: 87 year old female presented to ED with SOB; who has been traveling has recently experienced SOB with decreasing distance. She has had palpitations, lightheadedness, and increasing fatigue. The patient recently returned from [place]. She has had a negative PE work up; telemetry documented a heart rate in the 30-40s. She will be admitted for an atypical PNA treatment and symptomatic bradycardia. DM type 2 on Metformin, hold; use SS. A Fib, coumadin; continue Coumadin, follow INR. Patient is DNR/DNI code status. PCP is Dr. Wendy Camilo. - Discharge Data Discharge Date: 02/24/18 Discharge Disposition: Home, Self-Care 01 Condition: Good - Discharge Diagnosis/Problem(s) (1) Symptomatic bradycardia SNOMED Code(s): 69982243, 773707554 ICD Code: R00.1 - BRADYCARDIA, UNSPECIFIED Status: Resolved Priority: High Current Visit: Yes (2) Afib, Atrial fibrillation and flutter SNOMED Code(s): 375000254 ICD Code: I48.91 - UNSPECIFIED ATRIAL FIBRILLATION; I48.92 - UNSPECIFIED ATRIAL FLUTTER Status: Chronic Priority: Medium Current Visit: Yes (3) Chronic congestive heart failure, CHF SNOMED Code(s): 35418619 ICD Code: I50.9 - HEART FAILURE, UNSPECIFIED Status: Chronic Priority: High Current Visit: Yes (4) Diabetes mellitus SNOMED Code(s): 83981027 ICD Code: E11.9 - TYPE 2 DIABETES MELLITUS WITHOUT COMPLICATIONS Status: Chronic Priority: Medium Current Visit: Yes Qualifiers: Diabetes mellitus type: type 2 Diabetes mellitus terminal press operator insulin use: without correction use Diabetes mellitus complication status: with unspecified complications Qualified Code(s): E11.8 - Type 2 diabetes mellitus with unspecified complications (5) Thyroid nodule SNOMED Code(s): 290912182 ICD Code: E04.1 - NONTOXIC SINGLE THYROID NODULE Status: Acute Priority: Medium Current Visit: Yes - Patient Summary/Data Operative Procedure(s) Performed: None Complications: None Consults: Consultations 02/20/18 21:18 Consult to Case Management [CONS] Routine Consult to Occupational Therapy [OT Evaluation and Treatment] [CONS] Routine Consult to Physical Therapy [PT Evaluation and Treatment] [CONS] Routine Labs Pending at D/C: None Recommend recheck INR in one week or at Dr. Camilo's discretion Recommend follow up on thyroid nodule noted on chest CT per Dr. Camilo's recommendations Recommended Follow-up Testing/Procedures: Patient DC instructions: Outpatient physical therapy. [facility] should call you to set up this appointment. Core Measure Heart failure: Weight yourself daily and keep a log of weight for your Doctor Holter monitor needed at discharge per Dr. Bhakta recommendations Follow up with Inside Sales Territory Manager as instructed--within 2-4 weeks of discharge Follow up with PCP, Dr. Camilo within one week of discharge. -Recommend INR in one week or at Dr. Camilo's discretion. -Follow up on Thyroid nodule noted on chest CT Planned Operative Procedure(s) after DC: None Hospital Course: Impression: Symptomatic bradycardia with A fib on long acting BB, improved/resolved Progressive SOB after travel to [facility]--being treated with doxycycline History of pulmonary hypertension, functional status declining Hypoxia, room air at 88-90% on RA; improving Pneumonia vs. atelectasis- slight parenchymal density noted on left side of heart on CXR -CT on 02/23/18 to further evaluate - stable increased pulmonary artery density -Other incidental findings as mentioned below -WBC and CRP WNL Liver lesion -Small low-density lesion within the dome of the right lobe of the liver measuring 1.2 cm in size -Stable from prior CT -Defer to PCP to monitor Thyroid nodule -2.0 cm -[place] to be increased in size from prior study -TSH WNL -Defer to PCP for further work-up Chronic: A-Fib on Coumadin DM type II HTN GERD DHF CAD HTN HLD Plan: Hold BB, follow response - resume at 12.5mg BID Atypical PNA coverage, doxycycline Ischemic work up Hold Metformin use SS insulin and QID AC and Bed glucose checks - resume metformin Echo 02/22/18 -LVEF 60% -Mild septal left ventricular hypertrophy -Restrictive (grade 3) pattern of LV diastolic filling -No regional wall motion abnormalitis -Severely dilated left atrium -Mild aortic valve regurgitation -Mild tricuspid valve regurgitation -The right ventricular systolic pressure is moderately elevated at 49.2 mmHg Continue Coumadin, follow INR. Infectious work up - negative Home meds Daily Labs Solu-medrol - switch to PO prednisone today -- taper on DC DVT/GI prophylaxis CM/PT/OT Holter monitor on discharge Recommend cardiology follow-up after discharge Code status: DNR/DNI; PCP: Dr. Bianca Camilo at [facility] Likely discharge tomorrow - 02/24/18. - Patient Instructions Diet: Heart Healthy Diet, Diabetic Diet Activity: As Tolerated Driving: Do Not Drive Showering/Bathing: May Shower Notify Provider of: Fever, Increased Pain, Swelling and Redness, Nausea and/or Vomiting (dizziness, chest pain, worsening shortness of breath) - Discharge Plan Prescriptions/Med Rec: Doxycycline Calcium [IMW: Doxycycline] 100 mg PO BID #10 capsule Metoprolol Tartrate [Lopressor] 12.5 mg PO BID #60 tablet Prednisone [IJD: Prednisone] 10 mg PO DAILY #30 tab Home Medications: Home Meds Acetaminophen 650 mg PO BID 12/20/14 [History] Ascorbate Calcium [Vitamin C] 500 mg PO DAILY 12/20/14 [History] Calcium Carb/Vit D3/Minerals [Hm Calcium 600 mg-Vit D Tab] 1 each PO BID [History] Fish Oil/[place]-3 Fatty Acids [Fish Oil 1,000 MG] 1 tab PO QID 12/20/14 [History] Flaxseed Oil [Flaxseed] 1,200 mg PO QPM 12/20/14 [History] Furosemide [Lasix] 40 mg PO DAILY 12/20/14 [History] Losartan [Cozaar] 25 mg PO DAILY 12/20/14 [History] Multivitamin [Daily Multiple Vitamin] 1 tab PO DAILY 12/20/14 [History] Nitroglycerin [Nitrostat] 0.4 mg SL ASDIRECTED PRN 12/20/14 [History] Pantoprazole [ProTONIX] 40 mg PO DAILY PRN 12/20/14 [History] Potassium Chloride [Klor-Con M20] 20 meq PO DAILY 12/20/14 [History] Vitamin E 400 unit PO DAILY 12/20/14 [History] atorvaSTATin [Lipitor] 20 mg PO BEDTIME 12/20/14 [History] Cholecalciferol (Vitamin D3) [Vitamin D3] 1,000 units PO DAILY 02/20/18 [History ] Warfarin Sodium [Jantoven] 2.5 mg PO DAILY 02/20/18 [History] metFORMIN HCl [Metformin HCl] 500 mg PO DAILY 02/20/18 [History] Doxycycline Calcium [IMW: Doxycycline] 100 mg PO BID #10 capsule 02/24/18 [Rx] Metoprolol Tartrate [Lopressor] 12.5 mg PO BID #60 tablet 02/24/18 [Rx] Prednisone [IJD: Prednisone] 10 mg PO DAILY #30 tab 02/24/18 [Rx] Patient Handouts: Bronchospasm, Adult, Thyroid Nodule, Bradycardia, Adult, Heart Failure, [id number], Acute Bronchitis, Adult Forms: ED Department Discharge Referrals: Bianca Camilo MD [Primary Care Provider] - - Discharge Summary/Plan Comment DC Time >30 min.: Yes (45 min) - General Info Date of Service: 02/24/18 Admission Dx/Problem (Free Text: Admission Diagnosis/Problem Admission Diagnosis/Problem Bradycardia Betty is doing well this morning. Slept well. Voiding, eating without nausea. Coughing but improved, energy improved. HR's stable and without calls on telemetry overnight. She is planning for DC home today. Functional Status: Reports: Pain Controlled, Tolerating Diet, Ambulating, Urinating, Incentive Spirometry. Denies: New Symptoms - Review of Systems General: Reports: No Symptoms. Denies: Weakness (improved to resolved) HEENT: Reports: No Symptoms Pulmonary: Reports: Shortness of Breath (chronic but improved), Cough (improved) Cardiovascular: Reports: No Symptoms, Dyspnea on Exertion (chronic but improved) . Denies: Chest Pain, Palpitations Gastrointestinal: Reports: No Symptoms. Denies: Diarrhea, Nausea, Vomiting Genitourinary: Reports: No Symptoms Neurological: Reports: No Symptoms Psychiatric: Reports: No Symptoms - Patient Data Vitals - Most Recent: Last Vital Signs Temp 98.1 F 02/24/18 08:04 Pulse 77 02/24/18 08:40 Resp 17 02/24/18 08:04 BP 132/56 L 02/24/18 08:40 Pulse Ox 91 L 02/24/18 08:04 Weight - Most Recent: 237 lb 12.8 oz I&O - Last 24 hours: Intake & Output 02/23/18 02/24/18 02/24/18 22:59 06:59 14:59 Intake Total 1080 200 Output Total 1450 650 Balance -370 -450 Lab Results - Last 24 hrs: Laboratory Results - last 24 hr 02/23/18 02/23/18 02/23/18 Range/Units 11:08 15:59 21:07 WBC (3.98-10.04) K/mm3 RBC (3.98-5.22) M/mm3 Hgb (11.2-15.7) gm/L Hct (34.1-44.9) % MCV (79.4-94.8) fl MCH (25.6-32.2) pg MCHC (32.2-35.5) g/dl RDW Std Deviation (36.4-46.3) fL Plt Count (182-369) K/mm3 MPV (9.4-12.3) fl Neut % (Auto) (34.0-71.1) % Lymph % (Auto) (19.3-51.7) % [place] % (Auto) (4.7-12.5) % Eos % (Auto) (0.7-5.8) Baso % (Auto) (0.1-1.2) % Neut # (Auto) (1.56-6.13) K/mm3 Lymph # (Auto) (1.18-3.74) K/mm3 [place] # (Auto) (0.24-0.36) K/mm3 Eos # (Auto) (0.04-0.36) K/mm3 Baso # (Auto) (0.01-0.08) K/mm3 PT (8.0-13.0) SECONDS INR Sodium (136-145) mEq/L Potassium (3.5-5.1) mEq/L Chloride (98-107) mEq/L Carbon Dioxide (21-32) mEq/L Anion Gap (5-15) BUN (7-18) mg/dL Creatinine (0.55-1.02) mg/dL Est Cr Clr Drug Dosing mL/min Estimated GFR (MDRD) (>60) mL/min BUN/Creatinine Ratio (14-18) Glucose (83-115) mg/dL POC Glucose 233 H 245 H 250 H (83-110) mg/dL Lactic Acid (0.4-2.0) mmol/L Calcium (8.5-10.1) mg/dL Magnesium (1.8-2.4) mg/dl C-Reactive Protein (<1.0) mg/dL 03/30/18 03/30/18 03/30/18 Range/Units 06:25 06:33 06:33 WBC 6.48 (3.98-10.04) K/mm3 RBC 5.02 (3.98-5.22) M/mm3 Hgb 14.4 (11.2-15.7) gm/L Hct 45.1 H (34.1-44.9) % MCV 89.8 (79.4-94.8) fl MCH 28.7 (25.6-32.2) pg MCHC 31.9 L (32.2-35.5) g/dl RDW Std Deviation 50.0 H (36.4-46.3) fL Plt Count 209 (182-369) K/mm3 MPV 10.0 (9.4-12.3) fl Neut % (Auto) 72.7 H (34.0-71.1) % Lymph % (Auto) 15.7 L (19.3-51.7) % [place] % (Auto) 11.3 (4.7-12.5) % Eos % (Auto) 0 L (0.7-5.8) Baso % (Auto) 0.0 L (0.1-1.2) % Neut # (Auto) 4.71 (1.56-6.13) K/mm3 Lymph # (Auto) 1.02 L (1.18-3.74) K/mm3 [place] # (Auto) 0.73 H (0.24-0.36) K/mm3 Eos # (Auto) 0.00 L (0.04-0.36) K/mm3 Baso # (Auto) 0.00 L (0.01-0.08) K/mm3 PT (8.0-13.0) SECONDS INR Sodium 138 (136-145) mEq/L Potassium 4.3 (3.5-5.1) mEq/L Chloride 103 (98-107) mEq/L Carbon Dioxide 30 (21-32) mEq/L Anion Gap 9.3 (5-15) BUN 30 H (7-18) mg/dL Creatinine 0.8 (0.55-1.02) mg/dL Est Cr Clr Drug Dosing 43.59 mL/min Estimated GFR (MDRD) > 60 (>60) mL/min BUN/Creatinine Ratio 37.5 H (14-18) Glucose 141 H (83-115) mg/dL POC Glucose 131 H (83-110) mg/dL Lactic Acid (0.4-2.0) mmol/L Calcium 9.3 (8.5-10.1) mg/dL Magnesium 2.0 (1.8-2.4) mg/dl C-Reactive Protein < 0.2 (<1.0) mg/dL 02/24/18 02/24/18 Range/Units 06:33 06:33 WBC (3.98-10.04) K/mm3 RBC (3.98-5.22) M/mm3 Hgb (11.2-15.7) gm/L Hct (34.1-44.9) % MCV (79.4-94.8) fl MCH (25.6-32.2) pg MCHC (32.2-35.5) g/dl RDW Std Deviation (36.4-46.3) fL Plt Count (182-369) K/mm3 MPV (9.4-12.3) fl Neut % (Auto) (34.0-71.1) % Lymph % (Auto) (19.3-51.7) % [place] % (Auto) (4.7-12.5) % Eos % (Auto) (0.7-5.8) Baso % (Auto) (0.1-1.2) % Neut # (Auto) (1.56-6.13) K/mm3 Lymph # (Auto) (1.18-3.74) K/mm3 [place] # (Auto) (0.24-0.36) K/mm3 Eos # (Auto) (0.04-0.36) K/mm3 Baso # (Auto) (0.01-0.08) K/mm3 PT 27.7 H (8.0-13.0) SECONDS INR 2.56 Sodium (136-145) mEq/L Potassium (3.5-5.1) mEq/L Chloride (98-107) mEq/L Carbon Dioxide (21-32) mEq/L Anion Gap (5-15) BUN (7-18) mg/dL Creatinine (0.55-1.02) mg/dL Est Cr Clr Drug Dosing mL/min Estimated GFR (MDRD) (>60) mL/min BUN/Creatinine Ratio (14-18) Glucose (83-115) mg/dL POC Glucose (83-110) mg/dL Lactic Acid 1.8 (0.4-2.0) mmol/L Calcium (8.5-10.1) mg/dL Magnesium (1.8-2.4) mg/dl C-Reactive Protein (<1.0) mg/dL Med Orders - Current: Current Medications Acetaminophen (Tylenol) 650 mg PO Q4H PRN PRN Reason: Pain Last Admin: 02/23/18 21:37 Dose: 650 mg Bisacodyl (Dulcolax) 5 mg PO DAILY PRN PRN Reason: Constipation Last Admin: 02/23/18 16:37 Dose: 5 mg Dextrose/Water (Dextrose 50% In Water) 50 ml IVPUSH ASDIRECTED PRN PRN Reason: Hypoglycemia Doxycycline Hyclate (Vibramycin) 100 mg PO BID [facility] Last Admin: 02/24/18 08:41 Dose: 100 mg Furosemide (Lasix) 40 mg PO DAILY [facility] Last Admin: 02/24/18 08:41 Dose: 40 mg Hydralazine HCl (Apresoline) 20 mg IVPUSH Q6H PRN PRN Reason: Hypertension Last Admin: 02/23/18 04:46 Dose: 20 mg Insulin Aspart (Novolog) 0 unit SUBCUT QIDACANDBED [facility]; Protocol Last Admin: 02/24/18 06:27 Dose: Not Given Losartan Potassium (Cozaar) 25 mg PO DAILY [facility] Last Admin: 02/24/18 08:40 Dose: 25 mg Metformin HCl (Glucophage) 500 mg PO WITHBREAKFAST [facility] Last Admin: 02/24/18 06:27 Dose: 500 mg Metoprolol Tartrate (Lopressor) 12.5 mg PO BID [facility] Last Admin: 02/24/18 08:40 Dose: 12.5 mg Nitroglycerin (Nitrostat) 0.4 mg SL ASDIRECTED PRN PRN Reason: Chest Pain Ondansetron HCl (Zofran) 4 mg IVPUSH Q4HR PRN PRN Reason: Nausea/Vomiting Last Admin: 02/22/18 12:58 Dose: 4 mg Pantoprazole Sodium (Protonix) 40 mg PO DAILY PRN PRN Reason: reflux Potassium Chloride (Klor-Con M20) 20 meq PO DAILY [facility] Last Admin: 02/24/18 08:41 Dose: 20 meq Prednisone (Prednisone) 60 mg PO DAILY [facility] Last Admin: 02/24/18 08:41 Dose: 60 mg Simvastatin (Zocor) 20 mg PO BEDTIME [facility] Last Admin: 02/23/18 21:38 Dose: 20 mg Sodium Chloride (Saline Flush) 10 ml FLUSH ASDIRECTED PRN PRN Reason: Keep Vein Open Last Admin: 02/20/18 15:10 Dose: 10 ml Warfarin Sodium (Coumadin) 2.5 mg PO DAILY@1800 [facility] Last Admin: 02/23/18 17:28 Dose: 2.5 mg Discontinued Medications Furosemide (Lasix) 20 mg IVPUSH NOW ONE Stop: 02/22/18 13:31 Last Admin: 02/22/18 14:10 Dose: 20 mg Doxycycline Hyclate 100 mg/ (Sodium Chloride) 100 mls @ 100 mls/hr IV Q12HR [facility] Last Admin: 02/20/18 22:16 Dose: 100 mls/hr Magnesium Sulfate 2 gm/ Premix 50 mls @ 25 mls/hr IV ONETIME ONE Stop: 02/20/18 23:15 Last Admin: 02/20/18 22:16 Dose: 25 mls/hr Doxycycline Hyclate 100 mg/ (Dextrose/Water) 100 mls @ 100 mls/hr IV Q12HR [facility] Doxycycline Hyclate 100 mg/ (Dextrose/Water) 100 mls @ 100 mls/hr IV Q12HR [facility] Stop: 02/21/18 23:00 Last Admin: 02/21/18 20:20 Dose: 100 mls/hr Ceftriaxone Sodium 1 gm/ (Sodium Chloride) 100 mls @ 200 mls/hr IV Q24H [facility] Iopamidol (Isovue-300 (61%)) 80 ml IVPUSH ONETIME ONE Stop: 02/22/18 08:47 Last Admin: 02/22/18 09:56 Dose: 80 ml Methylprednisolone Sodium Succinate (Solu-Medrol) 80 mg IVPUSH Q12H [facility] Last Admin: 02/21/18 09:39 Dose: 80 mg Methylprednisolone Sodium Succinate (Solu-Medrol) 125 mg IVPUSH Q12H [facility] Last Admin: 02/22/18 08:03 Dose: 125 mg Methylprednisolone Sodium Succinate (Solu-Medrol) 80 mg IVPUSH Q12H [facility] Methylprednisolone Sodium Succinate (Solu-Medrol) 80 mg IVPUSH Q12H [facility] Last Admin: 02/23/18 08:42 Dose: 80 mg Metoprolol Succinate (Toprol Xl) 50 mg PO QPM [facility] Last Admin: 02/21/18 18:14 Dose: 50 mg Sodium Chloride (Saline Flush) 10 ml FLUSH ONETIME ONE Stop: 02/22/18 08:47 Last Admin: 02/22/18 09:58 Dose: 10 ml - Exam Quality Assessment: Reports: DVT Prophylaxis. Denies: Supplemental Oxygen ( weaned early this morning) General: Reports: Alert, Oriented, Cooperative, No Acute Distress HEENT: Reports: Pupils Equal, EOMI, Mucous Membr. Moist/[place] Neck: Reports: Supple Lungs: Reports: Normal Respiratory Effort, Decreased Breath Sounds Cardiovascular: Reports: Regular Rate, Regular Rhythm GI/Abdominal Exam: Normal Bowel Sounds, Soft, Non-Tender (Female) Exam: Deferred Rectal (Female) Exam: Deferred Extremities: Normal Inspection, Normal Capillary Refill, Pedal Edema (trace to 1 + bilat LE, teds present bilat) Neurological: Reports: No New Focal Deficit Psy/Mental Status: Reports: Alert, Normal Affect, Normal Mood
[2018-02-24] MEDS ORDERED: predniSONE 20 MG Tab PO SCH (09:00)
== END 2018-02-24 11:21 | disposition home or self-care (01) | DRG 308 ==
LOC: JD.ED 14:36 → JD.MS 17:42
PROVIDERS: ADMIT Internal Medicine Cardiovascular Disease; ATTEND Internal Medicine Cardiovascular Disease
DX: R00.1 Bradycardia, unspecified (principal); J18.9 Pneumonia, unspecified organism; I50.32 Chronic diastolic (congestive) heart failure; I50.30 Unspecified diastolic (congestive) heart failure; J98.11 Atelectasis; I48.91 Unspecified atrial fibrillation; Z79.01 Long term (current) use of anticoagulants; Z66 Do not resuscitate; I27.20 Pulmonary hypertension, unspecified; R09.02 Hypoxemia; I25.10 Atherosclerotic heart disease of native coronary artery without angina pectoris; M19.90 Unspecified osteoarthritis, unspecified site; Z96.659 Presence of unspecified artificial knee joint; Z88.2 Allergy status to sulfonamides; Z88.8 Allergy status to other drugs, medicaments and biological substances; Z79.899 Other long term (current) drug therapy; K76.9 Liver disease, unspecified; E04.1 Nontoxic single thyroid nodule; I11.0 Hypertensive heart disease with heart failure; E78.5 Hyperlipidemia, unspecified; K21.9 Gastro-esophageal reflux disease without esophagitis; K44.9 Diaphragmatic hernia without obstruction or gangrene; E11.9 Type 2 diabetes mellitus without complications; Z79.84 Long term (current) use of oral hypoglycemic drugs
CPT/HCPCS: 36415; 36600; 71045; 80053; 82803; 83880; 84443; 84484; 85025; 85379; 85610; 85730; 93005 ×3; 99285; J7050; 71270; 71270-26; 80048; 80061; 82962; 83605; 83735; 86140; 86738; 87486; 87581; 87633; 87798; 87804; 87899; 93306; 94760; 94761; 97110-GP; 97116-GP; 97162-GP; 97165-GO; 97530-GP; A9270; A9270-GY; J0360; J1815-GY; J2405; J2920; J2930; J3475; J7030; J7060; Q9967

== ENCOUNTER 2019-10-31 16:14 | Emergency (ER) | payer MEDICARE, OTHER ==
[2019-10-31] MEDS ORDERED: Sodium Chloride 0.9% 10 ML Syringe FLUSH PRN (16:27)
[2019-10-31 16:35] VITALS: BP 158/95; PULSE 86
--- NOTE | 2019-10-31 16:59 | EDM.PDOC ---
ED HPI GENERAL MEDICAL PROBLEM - General Chief Complaint: Respiratory Problem Stated Complaint: LOW OXYGEN LEVEL Time Seen by Provider: 10/31/19 16:23 Source of Information: Reports: Patient, RN Notes Reviewed History Limitations: Reports: No Limitations - History of Present Illness INITIAL COMMENTS - FREE TEXT/NARRATIVE: Patient is an 89-year-old female who presents to the ED for evaluation of low oxygen level. The patient states that she is normally short of breath with any activity, however over the last week this has worsened. She notes that at rest her oxygen levels at home have been as low as 80% on room air, she states she did do some deep breathing exercises, but could never get this over 90% on room air. Patient does note however that she has a concentrator at home, that she uses as needed. She notes that she uses about 1/2 L of oxygen when needed. Patient notes that she had a prior episode like this around 3 years ago. Patient does take 40 mg of Lasix daily. Patient does not note an increased amount of edema on her legs, but she does note some increase shortness of breath that is worse with activity and speaking, she states that she has to speak in somewhat broken sentences to get her words out. She denies any fevers or chills that she has been having. Her primary care provider is Dr. Bianca Camilo. She does note a history of CHF and pulmonary hypertension. - Related Data Allergies Allergy/AdvReac Type Severity Reaction Status Date / Time glipizide Allergy Cannot Verified 10/31/19 16:25 Remember Sulfa (Sulfonamide Allergy Cannot Verified 10/31/19 16:25 Antibiotics) Remember Home Meds: Home Meds Acetaminophen 650 mg PO BID 12/20/14 [History] Ascorbate Calcium [Vitamin C] 500 mg PO DAILY 12/20/14 [History] Calcium Carb/Vit D3/Minerals [Hm Calcium 600 mg-Vit D Tab] 1 each PO BID [History] Fish Oil/[place]-3 Fatty Acids [Fish Oil 1,000 MG] 1 tab PO QID 12/20/14 [History] Flaxseed Oil [Flaxseed] 1,200 mg PO QPM 12/20/14 [History] Furosemide [Lasix] 40 mg PO DAILY 12/20/14 [History] Losartan [Cozaar] 25 mg PO DAILY 12/20/14 [History] Multivitamin [Daily Multiple Vitamin] 1 tab PO DAILY 12/20/14 [History] Nitroglycerin [Nitrostat] 0.4 mg SL ASDIRECTED PRN 12/20/14 [History] Pantoprazole [ProTONIX] 40 mg PO DAILY PRN 12/20/14 [History] Potassium Chloride [Klor-Con M20] 20 meq PO DAILY 12/20/14 [History] Vitamin E 400 unit PO DAILY 12/20/14 [History] atorvaSTATin [Lipitor] 20 mg PO BEDTIME 12/20/14 [History] Cholecalciferol (Vitamin D3) [Vitamin D3] 1,000 units PO DAILY 02/20/18 [History ] Warfarin Sodium [Jantoven] 2.5 mg PO DAILY 02/20/18 [History] metFORMIN HCl [Metformin HCl] 500 mg PO DAILY 02/20/18 [History] Doxycycline Calcium [IMW: Doxycycline] 100 mg PO BID #10 capsule 02/24/18 [Rx] Metoprolol Tartrate [Lopressor] 12.5 mg PO BID #60 tablet 02/24/18 [Rx] Prednisone [IJD: Prednisone] 10 mg PO DAILY #30 tab 02/24/18 [Rx] Past Medical History HEENT History: Reports: Cataract, Hard of Hearing, Impaired Vision, Other (See Below) Other HEENT History: wears glasses, wears hearing aids, has a partial Cardiovascular History: Reports: Afib, Blood Clots/VTE/DVT, CAD, Heart Failure, High Cholesterol, Hypertension, SOB on Exertion Respiratory History: Reports: None Gastrointestinal History: Reports: Diverticulosis, GERD, Hiatal Hernia Genitourinary History: Reports: None RAISIN WASHER History: Reports: None Musculoskeletal History: Reports: Osteoarthritis Neurological History: Reports: None Psychiatric History: Reports: None Endocrine/Metabolic History: Reports: Obesity/BMI 30+ Hematologic History: Reports: None Immunologic History: Reports: None Oncologic (Cancer) History: Reports: None Dermatologic History: Reports: Cellulitis - Infectious Disease History Infectious Disease History: Reports: None - Past Surgical History HEENT Surgical History: Reports: Adenoidectomy, Tonsillectomy Cardiovascular Surgical History: Reports: None Respiratory Surgical History: Reports: None GI Surgical History: Reports: Appendectomy, Cholecystectomy, Colonoscopy Female Surgical History: Reports: Breast Biopsy, Hysterectomy, Salpingo- Oophorectomy Neurological Surgical History: Reports: None Musculoskeletal Surgical History: Reports: Knee Replacement, Other (See Below) Other Musculoskeletal Surgeries/Procedures:: right knee replacement Oncologic Surgical History: Reports: Biopsy of Breast Dermatological Surgical History: Reports: None Social & Family History - Family History Family Medical History: Noncontributory - Tobacco Use Smoking Status *Q: Never Smoker - Caffeine Use Caffeine Use: Reports: Coffee - Recreational Drug Use Recreational Drug Use: No ED ROS GENERAL - Review of Systems Review Of Systems: See Below Constitutional: Denies: Fever, Chills HEENT: Denies: Rhinitis, Throat Pain Respiratory: Reports: Shortness of Breath (with activity and talking). Denies: Wheezing, Cough, Sputum Cardiovascular: Reports: Dyspnea on Exertion. Denies: Chest Pain, Palpitations GI/Abdominal: Denies: Diarrhea, Nausea, Vomiting Musculoskeletal: Denies: Back Pain ED EXAM, GENERAL - Physical Exam Exam: See Below Exam Limited By: No Limitations General Appearance: Alert, WD/WN, No Apparent Distress Throat/Mouth: Normal Inspection, Normal Lips, Normal Teeth, Normal Gums, Normal Oropharynx, Normal Voice, No Airway Compromise Head: Atraumatic, Normocephalic Neck: Normal Inspection Respiratory/Chest: No Respiratory Distress, Lungs Clear, No Accessory Muscle Use , Chest Non-Tender, Decreased Breath Sounds (diffuse bilaterally) Cardiovascular: Normal Peripheral Pulses, Regular Rate, Rhythm, No Murmur Peripheral Pulses: 3+: Radial (L), Radial (R) Extremities: Normal Inspection, Normal Capillary Refill Neurological: Alert, Oriented, Normal Cognition, No Motor/Sensory Deficits Psychiatric: Normal Affect, Normal Mood Skin Exam: Warm, Dry, Intact, Normal Color, No Rash EKG INTERPRETATION EKG Date: 10/31/19 Time: 16:55 Rhythm: NSR Rate (Beats/Min): 59 Clements: RAD-Right Clements Deviation P-Wave: Present QRS: Normal ST-T: Normal QT: Prolonged (moderately) EKG Interpretation Comments: Reviewed by myself and Dr. Edmond, there is RSR in V1 and V2 with a nonspecific intraventricular conduction delay, he did appreciates T wave inversion in V1-V5, aVF, and a flattened T wave in V6. Course - Vital Signs Last Recorded V/S: Last Vital Signs Temp 98.2 F 10/31/19 16:22 Pulse 86 10/31/19 16:22 Resp 18 10/31/19 16:22 BP 158/95 H 10/31/19 16:22 Pulse Ox 80 L 10/31/19 16:22 - Orders/Labs/Meds Orders: Active Orders 24 hr Category Date Time Status EKG Documentation Completion [RC] STAT Care 10/31/19 16:25 Ordered Peripheral IV Care [RC] . DIRECTED Care 10/31/19 16:27 Ordered Chest 1V Frontal [CR] Stat Exams 10/31/19 16:25 Ordered CULTURE BLOOD [BC] Stat Lab 10/31/19 16:26 Ordered CULTURE BLOOD [BC] Stat Lab 10/31/19 16:26 Ordered Sodium Chloride 0.9% [Saline Flush] Med 10/31/19 16:27 Ordered 10 ml FLUSH ASDIRECTED PRN Blood Culture x2 Reflex Set [OM.PC] Stat Oth 10/31/19 16:25 Ordered Peripheral IV Insertion Adult [OM.PC] Routine Oth 10/31/19 16:27 Ordered Medication Orders Sodium Chloride (Saline Flush) 10 ml FLUSH ASDIRECTED PRN PRN Reason: Keep Vein Open Last Admin: 10/31/19 17:03 Dose: 10 ml Labs: Laboratory Tests 10/31/19 10/31/19 10/31/19 Range/Units 16:48 16:48 16:48 WBC 5.03 (3.98-10.04) K/mm3 RBC 5.25 H (3.98-5.22) M/mm3 Hgb 14.5 (11.2-15.7) gm/dl Hct 45.0 H (34.1-44.9) % MCV 85.7 D (79.4-94.8) fl MCH 27.6 (25.6-32.2) pg MCHC 32.2 (32.2-35.5) g/dl RDW Std Deviation 49.2 H (36.4-46.3) fL Plt Count 185 (182-369) K/mm3 MPV 9.8 (9.4-12.3) fl Neutrophils % (Manual) 63 H (40-60) % Band Neutrophils % 0 (0-10) % Lymphocytes % (Manual) 31 (20-40) % Atypical Lymphs % 0 % Monocytes % (Manual) 1 L (2-10) % Eosinophils % (Manual) 5 (0.7-5.8) % Basophils % (Manual) 0 L (0.1-1.2) Platelet Estimate Adequate Plt Morphology Comment Normal RBC Morph Comment Normal PT 23.7 H (9.7-12.0) SECONDS INR 2.28 APTT 33 H (22-31) SECONDS D-Dimer, Quantitative 0.47 (0.19-0.50) mg/L Sodium 140 (136-145) mEq/L Potassium 4.2 (3.5-5.1) mEq/L Chloride 101 (98-107) mEq/L Carbon Dioxide 33 H (21-32) mEq/L Anion Gap 10.2 (5-15) BUN 17 (7-18) mg/dL Creatinine 1.0 (0.55-1.02) mg/dL Est Cr Clr Drug Dosing 33.58 mL/min Estimated GFR (MDRD) 52 (>60) mL/min BUN/Creatinine Ratio 17.0 (14-18) Glucose 97 (83-115) mg/dL Calcium 9.6 (8.5-10.1) mg/dL Total Bilirubin 0.6 (0.2-1.0) mg/dL AST 6 L (15-37) U/L ALT 24 (14-59) U/L Alkaline Phosphatase 72 (46-116) U/L Troponin I < 0.017 (0.00-0.056) ng/mL NT-Pro-B Natriuret Pep (0-450) pg/mL Total Protein 7.6 (6.4-8.2) g/dl Albumin 3.7 (3.4-5.0) g/dl Globulin 3.9 gm/dL Albumin/Globulin Ratio 1.0 (1-2) 10/31/19 Range/Units 16:48 WBC (3.98-10.04) K/mm3 RBC (3.98-5.22) M/mm3 Hgb (11.2-15.7) gm/dl Hct (34.1-44.9) % MCV (79.4-94.8) fl MCH (25.6-32.2) pg MCHC (32.2-35.5) g/dl RDW Std Deviation (36.4-46.3) fL Plt Count (182-369) K/mm3 MPV (9.4-12.3) fl Neutrophils % (Manual) (40-60) % Band Neutrophils % (0-10) % Lymphocytes % (Manual) (20-40) % Atypical Lymphs % % Monocytes % (Manual) (2-10) % Eosinophils % (Manual) (0.7-5.8) % Basophils % (Manual) (0.1-1.2) Platelet Estimate Plt Morphology Comment RBC Morph Comment PT (9.7-12.0) SECONDS INR APTT (22-31) SECONDS D-Dimer, Quantitative (0.19-0.50) mg/L Sodium (136-145) mEq/L Potassium (3.5-5.1) mEq/L Chloride (98-107) mEq/L Carbon Dioxide (21-32) mEq/L Anion Gap (5-15) BUN (7-18) mg/dL Creatinine (0.55-1.02) mg/dL Est Cr Clr Drug Dosing mL/min Estimated GFR (MDRD) (>60) mL/min BUN/Creatinine Ratio (14-18) Glucose (83-115) mg/dL Calcium (8.5-10.1) mg/dL Total Bilirubin (0.2-1.0) mg/dL AST (15-37) U/L ALT (14-59) U/L Alkaline Phosphatase (46-116) U/L Troponin I (0.00-0.056) ng/mL NT-Pro-B Natriuret Pep 677 H (0-450) pg/mL Total Protein (6.4-8.2) g/dl Albumin (3.4-5.0) g/dl Globulin gm/dL Albumin/Globulin Ratio (1-2) Meds: Medications Generic Name Dose Route Start Last Admin Trade Name Freq PRN Reason Stop Dose Admin Sodium Chloride 10 ml 10/31/19 16:27 10/31/19 17:03 Saline Flush FLUSH 10 ml ASDIRECTED PRN Administration Keep Vein Open - Re-Assessments/Exams Free Text/Narrative Re-Assessment/Exam: 10/31/19 17:04 Patient presents to the ED for evaluation of low oxygen levels and increasing shortness of breath. At time of triage, patient's oxygen levels were 80%, so she was placed on 3 L nasal cannula, this did raise her oxygen levels to around 95%. Will wean as tolerated. Did order some labs as well to help guide treatment and therapy at this time. Patient does not appear toxic. EKG is done , and demonstrates no sign of an acute ischemic change. 10/31/19 17:58 Patient labs are done, CBC is within normal limits, d-dimer 0.47 CMP is within normal limits, trop's negative, BNP is 677, and the patient's coags appear to be within therapeutic range for current Warfarin therapy. 10/31/19 18:40 Patient was reassessed at bedside, states she is feeling okay at this time. Chest x-ray was reviewed by myself and Dr. Edmond, he cannot appreciate any sort of acute consolidation like pneumonia, or extra fluid on the lungs. Patient's BNP also was just mildly elevated, which I believe she can manage at home with her Lasix. I did go over worrisome signs and symptoms to return with the patient, she verbalizes understanding. I told her to stay on her oxygen around 1 L or 2 L until she can be evaluated by her primary care physician, she is okay with this plan at this time. Departure - Departure Time of Disposition: 18:41 Disposition: Home, Self-Care 01 Condition: Fair Clinical Impression: Hypoxemia, Dyspnea on exertion - Discharge Information *PRESCRIPTION DRUG MONITORING PROGRAM REVIEWED*: No *COPY OF PRESCRIPTION DRUG MONITORING REPORT IN PATIENT KELLY: No Instructions: Shortness of Breath, Adult, [id number] Referrals: Bianca Camilo MD [Primary Care Provider] - Forms: ED Department Discharge Additional Instructions: You were evaluated in the ER today regarding your shortness of breath with exertion, and low O2 sats. Your laboratory evaluation demonstrated no acute bacterial infection, your BNP was mildly elevated, but you are already on Lasix at home, so this should take care of that. Your chest x-ray showed no sign of an acute consolidation or extra fluid on the lungs, and your EKG showed no acute ischemic changes. You already have home oxygen, recommend you stay on oxygen continuously for the next 2 or 3 days, and follow-up with your regular care provider within next week for an ER follow-up visit. Please return to the ER at any time if your symptoms change or worsen. - My Orders Last 24 Hours: My Active Orders 10/31/19 16:25 EKG Documentation Completion [RC] STAT Chest 1V Frontal [CR] Stat Blood Culture x2 Reflex Set [OM.PC] Stat 10/31/19 16:26 CULTURE BLOOD [BC] Stat CULTURE BLOOD [BC] Stat 10/31/19 16:27 Peripheral IV Care [RC] . DIRECTED Sodium Chloride 0.9% [Saline Flush] 10 ml FLUSH ASDIRECTED PRN Peripheral IV Insertion Adult [OM.PC] Routine - Assessment/Plan Last 24 Hours: My Active Orders 10/31/19 16:25 EKG Documentation Completion [RC] STAT Chest 1V Frontal [CR] Stat Blood Culture x2 Reflex Set [OM.PC] Stat 10/31/19 16:26 CULTURE BLOOD [BC] Stat CULTURE BLOOD [BC] Stat 10/31/19 16:27 Peripheral IV Care [RC] . DIRECTED Sodium Chloride 0.9% [Saline Flush] 10 ml FLUSH ASDIRECTED PRN Peripheral IV Insertion Adult [OM.PC] Routine
--- NOTE | 2019-11-02 09:15 | CR ---
Chest: Portable view of the chest was obtained. Comparison: Prior chest x-ray of 02/20/18. Findings: Heart is slightly enlarged. Tortuous thoracic aorta is noted. Slight parenchymal density is seen along the left lateral chest believed to represent chronic pleural thickening. No acute parenchymal change is seen. Bony structures are grossly intact. Impression: 1. Findings as noted above. 2. Nothing acute is appreciated. Diagnostic code #2 This report was dictated in [place] Standard Time
== END 2019-10-31 19:16 | disposition home or self-care (01) ==
LOC: JD.ED 16:14
DX: R09.02 Hypoxemia (principal); I11.0 Hypertensive heart disease with heart failure; I50.9 Heart failure, unspecified; I48.91 Unspecified atrial fibrillation; I25.10 Atherosclerotic heart disease of native coronary artery without angina pectoris; E78.00 Pure hypercholesterolemia, unspecified; K21.9 Gastro-esophageal reflux disease without esophagitis; H91.93 Unspecified hearing loss, bilateral; E66.9 Obesity, unspecified; Z68.36 Body mass index [BMI] 36.0-36.9, adult; Z88.8 Allergy status to other drugs, medicaments and biological substances; Z88.2 Allergy status to sulfonamides; Z79.01 Long term (current) use of anticoagulants; Z79.899 Other long term (current) drug therapy
CPT/HCPCS: 36415; 71045; 71045-26; 80053; 83880; 84484; 85007; 85027; 85379; 85610; 85730; 87040; 93005; 93010; 99283; 99285-25

== ENCOUNTER 2020-10-10 16:09 | Inpatient (IN) | payer MEDICARE, OTHER ==
[2020-10-10] MEDS ORDERED: Sodium Chloride 0.9% 10 ML Syringe FLUSH PRN (16:32)
[2020-10-10] MEDS ORDERED: Sodium Chloride 0.9% 1,000 ML IV SCH (16:45)
--- NOTE | 2020-10-10 18:30 | EDM.PDOC ---
ED HPI GENERAL MEDICAL PROBLEM - General Chief Complaint: General Stated Complaint: [facility] Time Seen by Provider: 10/10/20 16:18 Source of Information: Reports: Patient, EMS History Limitations: Reports: No Limitations - History of Present Illness INITIAL COMMENTS - FREE TEXT/NARRATIVE: The patient presents by [facility] for generalized weakness and no appet ite. The patient had COVID 19 two weeks ago. She does not have a fever or cough. She wears home oxygen for heart failure. She also has a history of A- fib, DVT and PE. She is on coumadin. She has been talking to her daughters today and they thought she sounded weak and needed to be seen. She sounded very weak on the phone. Her son came over and EMS transported her here. She can walk on her own and she is not lightheaded. She does feel short of breath at times. She has no abdominal pain, nausea or vomiting. Onset: Gradual Duration: Week(s): Severity: Mild Improves with: Reports: None Worsens with: Reports: None Associated Symptoms: Reports: Shortness of Breath. Denies: Chest Pain, Cough, Fever/Chills, Headaches, Nausea/Vomiting - Related Data Allergies Allergy/AdvReac Type Severity Reaction Status Date / Time glipizide Allergy Cannot Verified 10/31/19 16:25 Remember Sulfa (Sulfonamide Allergy Cannot Verified 10/31/19 16:25 Antibiotics) Remember Home Meds: Home Meds Acetaminophen 650 mg PO BID 12/20/14 [History] Ascorbate Calcium [Vitamin C] 500 mg PO DAILY 12/20/14 [History] Calcium Carb/Vit D3/Minerals [Hm Calcium [id number] Tab] 1 each PO BID 12/20/14 [History] Fish Oil/[place]-3 Fatty Acids [Fish Oil 1,000 MG] 1 tab PO QID 12/20/14 [History] Flaxseed Oil [Flaxseed] 1,200 mg PO QPM 12/20/14 [History] Furosemide [Lasix] 40 mg PO DAILY 12/20/14 [History] Losartan [Cozaar] 25 mg PO DAILY 12/20/14 [History] Multivitamin [Daily Multiple Vitamin] 1 tab PO DAILY 12/20/14 [History] Nitroglycerin [Nitrostat] 0.4 mg SL ASDIRECTED PRN 12/20/14 [History] Pantoprazole [ProTONIX] 40 mg PO DAILY PRN 12/20/14 [History] Potassium Chloride [Klor-Con M20] 20 meq PO DAILY 12/20/14 [History] Vitamin E 400 unit PO DAILY 12/20/14 [History] atorvaSTATin [Lipitor] 20 mg PO BEDTIME 12/20/14 [History] Cholecalciferol (Vitamin D3) [Vitamin D3] 1,000 units PO DAILY 02/20/18 [History] Warfarin Sodium [Jantoven] 2.5 mg PO DAILY 02/20/18 [History] metFORMIN HCl [Metformin HCl] 500 mg PO DAILY 02/20/18 [History] Doxycycline Calcium [IMW: Doxycycline] 100 mg PO BID #10 capsule 02/24/18 [Rx] Metoprolol Tartrate [Lopressor] 12.5 mg PO BID #60 tablet 02/24/18 [Rx] Prednisone [IJD: Prednisone] 10 mg PO DAILY #30 tab 02/24/18 [Rx] Past Medical History HEENT History: Reports: Cataract, Hard of Hearing, Impaired Vision, Other (See Below) Other HEENT History: wears glasses, wears hearing aids, has a partial Cardiovascular History: Reports: Afib, Blood Clots/VTE/DVT, CAD, Heart Failure, High Cholesterol, Hypertension, SOB on Exertion Respiratory History: Reports: None Gastrointestinal History: Reports: Diverticulosis, GERD, Hiatal Hernia Genitourinary History: Reports: None SUSTAINABILITY COACH History: Reports: None Musculoskeletal History: Reports: Osteoarthritis Neurological History: Reports: None Psychiatric History: Reports: None Endocrine/Metabolic History: Reports: Obesity/BMI 30+ Hematologic History: Reports: None Immunologic History: Reports: None Oncologic (Cancer) History: Reports: None Dermatologic History: Reports: Cellulitis - Infectious Disease History Infectious Disease History: Reports: None - Past Surgical History HEENT Surgical History: Reports: Adenoidectomy, Tonsillectomy Cardiovascular Surgical History: Reports: None Respiratory Surgical History: Reports: None GI Surgical History: Reports: Appendectomy, Cholecystectomy, Colonoscopy Female Surgical History: Reports: Breast Biopsy, Hysterectomy, Salpingo- Oophorectomy Neurological Surgical History: Reports: None Musculoskeletal Surgical History: Reports: Knee Replacement, Other (See Below) Other Musculoskeletal Surgeries/Procedures:: right knee replacement Oncologic Surgical History: Reports: Biopsy of Breast Dermatological Surgical History: Reports: None Social & Family History - Family History Family Medical History: No Pertinent Family History - Tobacco Use Tobacco Use Status *Q: Never Tobacco User - Caffeine Use Caffeine Use: Reports: Coffee - Recreational Drug Use Recreational Drug Use: No ED ROS GENERAL - Review of Systems Review Of Systems: See Below Constitutional: Reports: No Symptoms HEENT: Reports: No Symptoms Respiratory: Reports: Shortness of Breath. Denies: Cough Cardiovascular: Reports: No Symptoms Endocrine: Reports: No Symptoms GI/Abdominal: Reports: No Symptoms : Reports: No Symptoms Musculoskeletal: Reports: No Symptoms ED EXAM, GENERAL - Physical Exam Exam: See Below Exam Limited By: No Limitations General Appearance: Alert, No Apparent Distress Ears: Normal External Exam Nose: Normal Inspection Head: Atraumatic, Normocephalic Neck: Normal Inspection Respiratory/Chest: No Respiratory Distress, Lungs Clear, Normal Breath Sounds Cardiovascular: Regular Rate, Rhythm, No Edema, No Murmur GI/Abdominal: Soft, Non-Tender, No Organomegaly, No Mass, Other (Erythema to the left lower abdomen and groin) Back Exam: Normal Inspection Extremities: Normal Inspection Course - Vital Signs Last Recorded V/S: Last Vital Signs Temp 97.2 F 10/10/20 16:19 Pulse 77 10/10/20 16:19 Resp 20 10/10/20 16:19 BP 102/59 L 10/10/20 16:19 Pulse Ox 91 L 10/10/20 16:19 - Orders/Labs/Meds Orders: Active Orders 24 hr Category Date Time Status Cardiac Monitoring [RC] . DIRECTED Care 10/10/20 16:32 Active Oxygen Therapy [RC] PRN Care 10/10/20 16:32 Active Peripheral IV Care [RC] . DIRECTED Care 10/10/20 16:32 Active Chest 1V Frontal [CR] Stat Exams 10/10/20 16:34 Taken CULTURE BLOOD [BC] Stat Lab 10/10/20 18:43 Ordered CULTURE BLOOD [BC] Stat Lab 10/10/20 18:43 Ordered INR,PT,PROTHROMBIN TIME [COAG] Stat Lab 10/10/20 18:41 Ordered Sodium Chloride 0.9% [Normal Saline] 1,000 ml Med 10/10/20 16:45 Active IV .BOLUS Sodium Chloride 0.9% [Saline Flush] Med 10/10/20 16:32 Active 10 ml FLUSH ASDIRECTED PRN cefTRIAXone [Rocephin] 2 gm Med 10/10/20 18:44 Active Sodium Chloride 0.9% [Normal Saline] 100 ml IV ONETIME Blood Culture x2 Reflex Set [OM.PC] Stat Oth 10/10/20 18:43 Ordered Peripheral IV Insertion Adult [OM.PC] Stat Oth 10/10/20 16:32 Ordered Medication Orders Sodium Chloride (Normal Saline) 1,000 mls @ 1,000 mls/hr IV .BOLUS HEIDI Last Admin: 10/10/20 16:50 Dose: 1,000 mls/hr Documented by: DAHLIA Ceftriaxone Sodium 2 gm/ (Sodium Chloride) 100 mls @ 200 mls/hr IV ONETIME ONE Stop: 10/10/20 19:13 Sodium Chloride (Saline Flush) 10 ml FLUSH ASDIRECTED PRN PRN Reason: Keep Vein Open Last Admin: 10/10/20 16:51 Dose: 10 ml Documented by: DAHLIA Labs: Laboratory Tests 10/10/20 10/10/20 10/10/20 Range/Units 16:55 16:55 16:55 WBC 3.31 L (3.98-10.04) K/mm3 RBC 4.78 (3.98-5.22) M/mm3 Hgb 13.5 (11.2-15.7) gm/dl Hct 41.6 (34.1-44.9) % MCV 87.0 (79.4-94.8) fl MCH 28.2 (25.6-32.2) pg MCHC 32.5 (32.2-35.5) g/dl RDW Std Deviation 46.5 H (36.4-46.3) fL Plt Count 175 L (182-369) K/mm3 MPV 10.3 (9.4-12.3) fl Neut % (Auto) 70.7 (34.0-71.1) % Lymph % (Auto) 17.8 L (19.3-51.7) % [place] % (Auto) 11.2 (4.7-12.5) % Eos % (Auto) 0 L (0.7-5.8) Baso % (Auto) 0.3 (0.1-1.2) % Neut # (Auto) 2.34 (1.56-6.13) K/mm3 Lymph # (Auto) 0.59 L (1.18-3.74) K/mm3 [place] # (Auto) 0.37 H (0.24-0.36) K/mm3 Eos # (Auto) 0.00 L (0.04-0.36) K/mm3 Baso # (Auto) 0.01 (0.01-0.08) K/mm3 D-Dimer, Quantitative 1.07 H (0.19-0.50) mg/L Sodium 134 L (136-145) mEq/L Potassium 3.3 L (3.5-5.1) mEq/L Chloride 96 L (98-107) mEq/L Carbon Dioxide 31 (21-32) mEq/L Anion Gap 10.3 (5-15) BUN 21 H (7-18) mg/dL Creatinine 1.0 (0.55-1.02) mg/dL Est Cr Clr Drug Dosing 32.93 mL/min Estimated GFR (MDRD) 52 (>60) mL/min BUN/Creatinine Ratio 21.0 H (14-18) Glucose 192 H (83-115) mg/dL Lactic Acid (0.4-2.0) mmol/L Calcium 8.5 (8.5-10.1) mg/dL Total Bilirubin 0.5 (0.2-1.0) mg/dL AST 17 (15-37) U/L ALT 25 (14-59) U/L Alkaline Phosphatase 52 (46-116) U/L C-Reactive Protein 4.6 H* (<1.0) mg/dL Total Protein 6.5 (6.4-8.2) g/dl Albumin 2.6 L (3.4-5.0) g/dl Globulin 3.9 gm/dL Albumin/Globulin Ratio 0.7 L (1-2) Urine Color (Yellow) Urine Appearance (Clear) Urine pH (5.0-8.0) Ur Specific [place] (1.005-1.030) Urine Protein (Negative) Urine Glucose (UA) (Negative) Urine Ketones (Negative) Urine Occult Blood (Negative) Urine Nitrite (Negative) Urine Bilirubin (Negative) Urine Urobilinogen (0.2-1.0) Ur Leukocyte Esterase (Negative) Urine RBC (0-5) /hpf Urine WBC (0-5) /hpf Ur Squamous Epith Cells (0-5) /hpf Urine Bacteria (FEW) /hpf Urine Mucus (FEW) /hpf 10/10/20 10/10/20 Range/Units 16:55 17:00 WBC (3.98-10.04) K/mm3 RBC (3.98-5.22) M/mm3 Hgb (11.2-15.7) gm/dl Hct (34.1-44.9) % MCV (79.4-94.8) fl MCH (25.6-32.2) pg MCHC (32.2-35.5) g/dl RDW Std Deviation (36.4-46.3) fL Plt Count (182-369) K/mm3 MPV (9.4-12.3) fl Neut % (Auto) (34.0-71.1) % Lymph % (Auto) (19.3-51.7) % [place] % (Auto) (4.7-12.5) % Eos % (Auto) (0.7-5.8) Baso % (Auto) (0.1-1.2) % Neut # (Auto) (1.56-6.13) K/mm3 Lymph # (Auto) (1.18-3.74) K/mm3 [place] # (Auto) (0.24-0.36) K/mm3 Eos # (Auto) (0.04-0.36) K/mm3 Baso # (Auto) (0.01-0.08) K/mm3 D-Dimer, Quantitative (0.19-0.50) mg/L Sodium (136-145) mEq/L Potassium (3.5-5.1) mEq/L Chloride (98-107) mEq/L Carbon Dioxide (21-32) mEq/L Anion Gap (5-15) BUN (7-18) mg/dL Creatinine (0.55-1.02) mg/dL Est Cr Clr Drug Dosing mL/min Estimated GFR (MDRD) (>60) mL/min BUN/Creatinine Ratio (14-18) Glucose (83-115) mg/dL Lactic Acid 1.6 (0.4-2.0) mmol/L Calcium (8.5-10.1) mg/dL Total Bilirubin (0.2-1.0) mg/dL AST (15-37) U/L ALT (14-59) U/L Alkaline Phosphatase (46-116) U/L C-Reactive Protein (<1.0) mg/dL Total Protein (6.4-8.2) g/dl Albumin (3.4-5.0) g/dl Globulin gm/dL Albumin/Globulin Ratio (1-2) Urine Color Yellow (Yellow) Urine Appearance Clear (Clear) Urine pH 6.5 (5.0-8.0) Ur Specific [place] 1.025 (1.005-1.030) Urine Protein 1+ H (Negative) Urine Glucose (UA) Negative (Negative) Urine Ketones Negative (Negative) Urine Occult Blood Negative (Negative) Urine Nitrite Negative (Negative) Urine Bilirubin Negative (Negative) Urine Urobilinogen 0.2 (0.2-1.0) Ur Leukocyte Esterase Negative (Negative) Urine RBC 0-5 (0-5) /hpf Urine WBC 0-5 (0-5) /hpf Ur Squamous Epith Cells 0-5 (0-5) /hpf Urine Bacteria Few (FEW) /hpf Urine Mucus Moderate H (FEW) /hpf Meds: Medications Generic Name Dose Route Start Last Admin Trade Name Freq PRN Reason Stop Dose Admin Sodium Chloride 1,000 mls @ 1,000 mls/hr 10/10/20 16:45 10/10/20 16:50 Normal Saline IV 1,000 mls/hr .BOLUS HEIDI Administration Ceftriaxone Sodium 2 gm/ 100 mls @ 200 mls/hr 10/10/20 18:44 Sodium Chloride IV 10/10/20 19:13 ONETIME ONE Sodium Chloride 10 ml 10/10/20 16:32 10/10/20 16:51 Saline Flush FLUSH 10 ml ASDIRECTED PRN Administration Keep Vein Open - Re-Assessments/Exams Free Text/Narrative Re-Assessment/Exam: 10/10/20 18:32 I ordered oxygen, IV saline lock, CXR and labs. 10/10/20 18:32 Her WBC was low at 3.31. Her D-dimer was elevated at 1.07. Her K was low at 3.3. Her glucose was 192. Her lactic acid is normal. Her CRP is elevated at 4.6. Her UA shows no UTI. 10/10/20 18:43 She does have COVID pneumonia 10/10/20 18:47 She also has cellulitis to the left lower abdomen. I will get blood cultures and start her on rocephin. I feel she needs to be admitted. I called Dr Castaneda and he agreed to the admission. Departure - Departure Time of Disposition: 18:50 Disposition: Admitted As Inpatient 67 Condition: Serious Clinical Impression: COVID-19, Pneumonia due to COVID-19 virus, Hypoxia Cellulitis Qualifiers: Site of cellulitis: trunk Site of cellulitis of trunk: abdominal wall Qualified Code(s): L03.311 - Cellulitis of abdominal wall - Discharge Information Referrals: Bianca Camilo MD [Primary Care Provider] - Forms: ED Department Discharge Sepsis Event Note (ED) - Evaluation Sepsis Screening Result: No Definite Risk - Focused Exam Vital Signs: Vital Signs Temp Pulse Resp BP Pulse Ox 10/10/20 16:19 97.2 F 77 20 102/59 L 91 L - My Orders Last 24 Hours: My Active Orders 10/10/20 16:32 Cardiac Monitoring [RC] . DIRECTED Oxygen Therapy [RC] PRN Peripheral IV Care [RC] . DIRECTED Sodium Chloride 0.9% [Saline Flush] 10 ml FLUSH ASDIRECTED PRN Peripheral IV Insertion Adult [OM.PC] Stat 10/10/20 16:34 Chest 1V Frontal [CR] Stat 10/10/20 16:45 Sodium Chloride 0.9% [Normal Saline] 1,000 ml IV .BOLUS 10/10/20 18:41 INR,PT,PROTHROMBIN TIME [COAG] Stat 10/10/20 18:43 CULTURE BLOOD [BC] Stat CULTURE BLOOD [BC] Stat Blood Culture x2 Reflex Set [OM.PC] Stat 10/10/20 18:44 cefTRIAXone [Rocephin] 2 gm Sodium Chloride 0.9% [Normal Saline] 100 ml IV ONETIME - Assessment/Plan Last 24 Hours: My Active Orders 10/10/20 16:32 Cardiac Monitoring [RC] . DIRECTED Oxygen Therapy [RC] PRN Peripheral IV Care [RC] . DIRECTED Sodium Chloride 0.9% [Saline Flush] 10 ml FLUSH ASDIRECTED PRN Peripheral IV Insertion Adult [OM.PC] Stat 10/10/20 16:34 Chest 1V Frontal [CR] Stat 10/10/20 16:45 Sodium Chloride 0.9% [Normal Saline] 1,000 ml IV .BOLUS 10/10/20 18:41 INR,PT,PROTHROMBIN TIME [COAG] Stat 10/10/20 18:43 CULTURE BLOOD [BC] Stat CULTURE BLOOD [BC] Stat Blood Culture x2 Reflex Set [OM.PC] Stat 10/10/20 18:44 cefTRIAXone [Rocephin] 2 gm Sodium Chloride 0.9% [Normal Saline] 100 ml IV ONETIME
[2020-10-10] MEDS ORDERED: cefTRIAXone 2 GM in Sodium Chloride 0.9% 100 ML IV ONE (18:44)
[2020-10-10] MEDS ORDERED: Acetaminophen 325 MG Tab PO PRN (22:04)
[2020-10-10] MEDS ORDERED: REMDESIVIR 200 MG in Sodium Chloride 0.9% 250 ML IV ONE (22:04)
--- NOTE | 2020-10-10 22:08 | PCM.HP.2 ---
H&P History of Present Illness - General Date of Service: 10/10/20 Admit Problem/Dx: Admission Diagnosis/Problem Admission Diagnosis/Problem Pneumonia - History of Present Illness Initial Comments - Free Text/Narative: 89-year-old female with COVID-19 diagnosed 10 days ago presented to the emergency department with increasing generalized fatigue and weakness. She had decreasing appetite and shortness of breath. Patient is on 2 L of O2 at home. Patient's daughter today thought she was sounding weak and recommend that she go to the emergency department. Patient does have atrial fibrillation in which she takes warfarin 2.5 mg daily, has not had an INR checked in a few weeks, congestive heart failure, diabetes, and history of PE. When patient arrived at the emergency department initial oxygen saturations were good on 2 L, but she required increasing to 3 L to keep her oxygen saturations at 90. Because of her weakness and increased oxygen need it was felt she needed to be admitted. - Related Data Allergies/Adverse Reactions: Allergies Allergy/AdvReac Type Severity Reaction Status Date / Time Sulfa (Sulfonamide Allergy Severe Cannot Verified 10/10/20 22:48 Antibiotics) Remember glipizide Allergy Swollen Verified 10/10/20 22:48 Tongue Home Medications: Home Meds Acetaminophen 650 mg PO BID 12/20/14 [History] Ascorbate Calcium [Vitamin C] 500 mg PO DAILY 12/20/14 [History] Calcium Carb/Vit D3/Minerals [Hm Calcium 284-[id number]-Xtsllycc Tab] 1 each PO BID 12/20/14 [History] Fish Oil/[place]-3 Fatty Acids [Fish Oil 1,000 MG] 1 tab PO QID 12/20/14 [History] Flaxseed Oil [Flaxseed] 1,200 mg PO QPM 12/20/14 [History] Furosemide [Lasix] 40 mg PO DAILY 12/20/14 [History] Losartan [Cozaar] 25 mg PO DAILY 12/20/14 [History] Multivitamin [Daily Multiple Vitamin] 1 tab PO DAILY 12/20/14 [History] Nitroglycerin [Nitrostat] 0.4 mg SL ASDIRECTED PRN 12/20/14 [History] Pantoprazole [ProTONIX] 40 mg PO DAILY PRN 12/20/14 [History] Potassium Chloride [Klor-Con M20] 20 meq PO DAILY 12/20/14 [History] Vitamin E 400 unit PO DAILY 12/20/14 [History] atorvaSTATin [Lipitor] 20 mg PO BEDTIME 12/20/14 [History] Cholecalciferol (Vitamin D3) [Vitamin D3] 1,000 units PO DAILY 02/20/18 [History] Warfarin Sodium [Jantoven] 2.5 mg PO DAILY 02/20/18 [History] metFORMIN HCl [Metformin HCl] 500 mg PO DAILY 02/20/18 [History] Doxycycline Calcium [IMW: Doxycycline] 100 mg PO BID #10 capsule 02/24/18 [Rx] Metoprolol Tartrate [Lopressor] 12.5 mg PO BID #60 tablet 02/24/18 [Rx] Prednisone [IJD: Prednisone] 10 mg PO DAILY #30 tab 02/24/18 [Rx] Past Medical History HEENT History: Reports: Cataract, Hard of Hearing, Impaired Vision, Other (See Below) Other HEENT History: wears glasses, wears hearing aids, has a partial Cardiovascular History: Reports: Afib, Blood Clots/VTE/DVT, CAD, Heart Failure, High Cholesterol, Hypertension, SOB on Exertion Respiratory History: Reports: None Gastrointestinal History: Reports: Diverticulosis, GERD, Hiatal Hernia Genitourinary History: Reports: None SYSTEMS DEVELOPMENT CONSULTANT History: Reports: None Musculoskeletal History: Reports: Osteoarthritis Neurological History: Reports: None Psychiatric History: Reports: None Endocrine/Metabolic History: Reports: Obesity/BMI 30+ Hematologic History: Reports: None Immunologic History: Reports: None Oncologic (Cancer) History: Reports: None Dermatologic History: Reports: Cellulitis - Infectious Disease History Infectious Disease History: Reports: Novel Coronavirus - Past Surgical History HEENT Surgical History: Reports: Adenoidectomy, Tonsillectomy Cardiovascular Surgical History: Reports: None Respiratory Surgical History: Reports: None GI Surgical History: Reports: Appendectomy, Cholecystectomy, Colonoscopy Female Surgical History: Reports: Breast Biopsy, Hysterectomy, Salpingo- Oophorectomy Neurological Surgical History: Reports: None Musculoskeletal Surgical History: Reports: Knee Replacement, Other (See Below) Other Musculoskeletal Surgeries/Procedures:: right knee replacement Oncologic Surgical History: Reports: Biopsy of Breast Dermatological Surgical History: Reports: None Social & Family History - Family History Family Medical History: No Pertinent Family History - Tobacco Use Tobacco Use Status *Q: Never Tobacco User - Caffeine Use Caffeine Use: Reports: Coffee - Recreational Drug Use Recreational Drug Use: No H&P Review of Systems - Review of Systems: Review Of Systems: Comprehensive ROS is negative, except as noted in HPI. Exam - Exam Exam: See Below - Vital Signs Vital Signs: Last Vital Signs Temp 97.2 F 10/10/20 16:19 Pulse 77 10/10/20 16:19 Resp 20 10/10/20 16:19 BP 102/59 L 10/10/20 16:19 Pulse Ox 91 L 10/10/20 16:19 Weight: 230 lb - Exam Quality Assessment: Supplemental Oxygen (Nasal cannula) General: Alert, Oriented, 4 HEENT: Conjunctiva Clear, Mucosa Moist & [place], PERRLA. No: Hearing Intact (Hard of hearing) Neck: Supple, Trachea Midline, 2 Lungs: Normal Respiratory Effort, Rales (Bibasilar) Cardiovascular: Irregular Rhythm (Irregularly irregular) GI/Abdominal Exam: Normal Bowel Sounds, Soft, Non-Tender, No Organomegaly, No Distention, No Abnormal Bruit, No Mass Extremities: Normal Inspection, Non-Tender, Normal Capillary Refill, Pedal Edema (Trace to 1+) Skin: Warm, Dry, Intact Neuro Extensive - Mental Status: Alert, Oriented x3, Normal Mood/Affect, Normal Cognition, Memory Intact Psychiatric: Alert, Normal Affect, Normal Mood - Patient Data Lab Results Last 24 hrs: Laboratory Results - last 24 hr 10/10/20 10/10/20 10/10/20 Range/Units 16:55 16:55 16:55 WBC 3.31 L (3.98-10.04) K/mm3 RBC 4.78 (3.98-5.22) M/mm3 Hgb 13.5 (11.2-15.7) gm/dl Hct 41.6 (34.1-44.9) % MCV 87.0 (79.4-94.8) fl MCH 28.2 (25.6-32.2) pg MCHC 32.5 (32.2-35.5) g/dl RDW Std Deviation 46.5 H (36.4-46.3) fL Plt Count 175 L (182-369) K/mm3 MPV 10.3 (9.4-12.3) fl Neut % (Auto) 70.7 (34.0-71.1) % Lymph % (Auto) 17.8 L (19.3-51.7) % Riley % (Auto) 11.2 (4.7-12.5) % Eos % (Auto) 0 L (0.7-5.8) Baso % (Auto) 0.3 (0.1-1.2) % Neut # (Auto) 2.34 (1.56-6.13) K/mm3 Lymph # (Auto) 0.59 L (1.18-3.74) K/mm3 Riley # (Auto) 0.37 H (0.24-0.36) K/mm3 Eos # (Auto) 0.00 L (0.04-0.36) K/mm3 Baso # (Auto) 0.01 (0.01-0.08) K/mm3 PT (9.7-12.0) SECONDS INR D-Dimer, Quantitative 1.07 H (0.19-0.50) mg/L Sodium 134 L (136-145) mEq/L Potassium 3.3 L (3.5-5.1) mEq/L Chloride 96 L (98-107) mEq/L Carbon Dioxide 31 (21-32) mEq/L Anion Gap 10.3 (5-15) BUN 21 H (7-18) mg/dL Creatinine 1.0 (0.55-1.02) mg/dL Est Cr Clr Drug Dosing 32.93 mL/min Estimated GFR (MDRD) 52 (>60) mL/min BUN/Creatinine Ratio 21.0 H (14-18) Glucose 192 H (83-115) mg/dL Lactic Acid (0.4-2.0) mmol/L Calcium 8.5 (8.5-10.1) mg/dL Total Bilirubin 0.5 (0.2-1.0) mg/dL AST 17 (15-37) U/L ALT 25 (14-59) U/L Alkaline Phosphatase 52 (46-116) U/L C-Reactive Protein 4.6 H* (<1.0) mg/dL Total Protein 6.5 (6.4-8.2) g/dl Albumin 2.6 L (3.4-5.0) g/dl Globulin 3.9 gm/dL Albumin/Globulin Ratio 0.7 L (1-2) Urine Color (Yellow) Urine Appearance (Clear) Urine pH (5.0-8.0) Ur Specific [place] (1.005-1.030) Urine Protein (Negative) Urine Glucose (UA) (Negative) Urine Ketones (Negative) Urine Occult Blood (Negative) Urine Nitrite (Negative) Urine Bilirubin (Negative) Urine Urobilinogen (0.2-1.0) Ur Leukocyte Esterase (Negative) Urine RBC (0-5) /hpf Urine WBC (0-5) /hpf Ur Squamous Epith Cells (0-5) /hpf Urine Bacteria (FEW) /hpf Urine Mucus (FEW) /hpf 10/10/20 10/10/20 10/10/20 Range/Units 16:55 16:55 17:00 WBC (3.98-10.04) K/mm3 RBC (3.98-5.22) M/mm3 Hgb (11.2-15.7) gm/dl Hct (34.1-44.9) % MCV (79.4-94.8) fl MCH (25.6-32.2) pg MCHC (32.2-35.5) g/dl RDW Std Deviation (36.4-46.3) fL Plt Count (182-369) K/mm3 MPV (9.4-12.3) fl Neut % (Auto) (34.0-71.1) % Lymph % (Auto) (19.3-51.7) % Riley % (Auto) (4.7-12.5) % Eos % (Auto) (0.7-5.8) Baso % (Auto) (0.1-1.2) % Neut # (Auto) (1.56-6.13) K/mm3 Lymph # (Auto) (1.18-3.74) K/mm3 Riley # (Auto) (0.24-0.36) K/mm3 Eos # (Auto) (0.04-0.36) K/mm3 Baso # (Auto) (0.01-0.08) K/mm3 PT 12.3 H (9.7-12.0) SECONDS INR 1.15 D-Dimer, Quantitative (0.19-0.50) mg/L Sodium (136-145) mEq/L Potassium (3.5-5.1) mEq/L Chloride (98-107) mEq/L Carbon Dioxide (21-32) mEq/L Anion Gap (5-15) BUN (7-18) mg/dL Creatinine (0.55-1.02) mg/dL Est Cr Clr Drug Dosing mL/min Estimated GFR (MDRD) (>60) mL/min BUN/Creatinine Ratio (14-18) Glucose (83-115) mg/dL Lactic Acid 1.6 (0.4-2.0) mmol/L Calcium (8.5-10.1) mg/dL Total Bilirubin (0.2-1.0) mg/dL AST (15-37) U/L ALT (14-59) U/L Alkaline Phosphatase (46-116) U/L C-Reactive Protein (<1.0) mg/dL Total Protein (6.4-8.2) g/dl Albumin (3.4-5.0) g/dl Globulin gm/dL Albumin/Globulin Ratio (1-2) Urine Color Yellow (Yellow) Urine Appearance Clear (Clear) Urine pH 6.5 (5.0-8.0) Ur Specific [place] 1.025 (1.005-1.030) Urine Protein 1+ H (Negative) Urine Glucose (UA) Negative (Negative) Urine Ketones Negative (Negative) Urine Occult Blood Negative (Negative) Urine Nitrite Negative (Negative) Urine Bilirubin Negative (Negative) Urine Urobilinogen 0.2 (0.2-1.0) Ur Leukocyte Esterase Negative (Negative) Urine RBC 0-5 (0-5) /hpf Urine WBC 0-5 (0-5) /hpf Ur Squamous Epith Cells 0-5 (0-5) /hpf Urine Bacteria Few (FEW) /hpf Urine Mucus Moderate H (FEW) /hpf Result Diagrams: 10/11/20 05:15 10/11/20 05:15 Imaging Impressions Last 24 hrs: Chest x-ray: [place] opacities worse on the left #1 Interpretation EKG Date: 10/10/20 Time: 10:21 Rhythm: A-Fib Rate (Beats/Min): 76 [place]: Normal P-Wave: Absent QRS: Other (RSR prime in leads V1 and V2) ST-T: Normal QT: Prolonged (601) Comparison: NA - No Prior EKG Sepsis Event Note - Evaluation Sepsis Screening Result: No Definite Risk - Focused Exam Vital Signs: Vital Signs Temp Pulse Resp BP Pulse Ox 10/10/20 16:19 97.2 F 77 20 102/59 L 91 L - Problem List (1) Prolonged Q-T interval on ECG SNOMED Code(s): 131561049 ICD Code: R94.31 - ABNORMAL ELECTROCARDIOGRAM [ECG] [EKG] Status: Acute Current Visit: Yes (2) COVID-19 SNOMED Code(s): 872035770 ICD Code: U07.1 - COVID-19 Status: Acute Current Visit: Yes (3) Pneumonia due to COVID-19 virus SNOMED Code(s): 683661667317735364 ICD Code: U07.1 - COVID-19; J12.89 - OTHER VIRAL PNEUMONIA Status: Acute Current Visit: Yes (4) Afib, Atrial fibrillation and flutter SNOMED Code(s): 672460327 ICD Code: I48.91 - UNSPECIFIED ATRIAL FIBRILLATION; I48.92 - UNSPECIFIED ATRIAL FLUTTER Status: Chronic Priority: Medium Current Visit: No (5) Hypertension SNOMED Code(s): 70834897 ICD Code: I10 - ESSENTIAL (PRIMARY) HYPERTENSION Status: Chronic Priority: Medium Current Visit: No Qualifiers: Hypertension type: unspecified Qualified Code(s): I10 - Essential (primary) hypertension (6) Pulmonary hypertension SNOMED Code(s): 49299928 ICD Code: I27.20 - PULMONARY HYPERTENSION, UNSPECIFIED Status: Chronic Priority: Medium Current Visit: No Problem List Initiated/Reviewed/Updated: Yes Orders Last 24hrs: Active Orders 24 hr Category Date Time Status Patient Status [ADT] Routine ADT 10/10/20 18:48 Active Cardiac Monitoring [RC] . DIRECTED Care 10/10/20 16:32 Active Nurse Communication: Isolation [RC] ASDIRECTED Care 10/10/20 22:07 Ordered Oxygen Therapy [RC] PRN Care 10/10/20 16:32 Active Peripheral IV Care [RC] . DIRECTED Care 10/10/20 16:32 Active Chest 1V Frontal [CR] Stat Exams 10/10/20 16:34 Taken C-REACTIVE PROTEIN [CHEM] AM Lab 10/11/20 05:11 Ordered CBC WITH AUTO DIFF [HEME] AM Lab 10/11/20 05:11 Ordered CMP [COMPREHENSIVE METABOLIC PN,CMP] [CHEM] AM Lab 10/11/20 05:11 Ordered CULTURE BLOOD [BC] Stat Lab 10/10/20 18:20 Received CULTURE BLOOD [BC] Stat Lab 10/10/20 19:31 Received DD [D-DIMER QUANTITATIVE] [COAG] AM Lab 10/11/20 05:11 Ordered MAGNESIUM [CHEM] AM Lab 10/11/20 05:11 Ordered PHOSPHORUS [CHEM] AM Lab 10/11/20 05:11 Ordered PROCALCITONIN [REF] Routine Lab 10/11/20 05:00 Ordered Acetaminophen [TylenoL] Med 10/10/20 22:04 Ordered 650 mg PO Q4H PRN Azithromycin [Zithromax] 500 mg Med 10/10/20 22:00 Ordered Sodium Chloride 0.9% [Normal Saline (AdvBag)] 250 ml IV Q24H Remdesivir (Eua) [Remdesivir (EUA)] 100 mg Med 10/11/20 09:00 Ordered Sodium Chloride 0.9% [Normal Saline] 100 ml IV DAILY Remdesivir (Eua) [Remdesivir (EUA)] 200 mg Med 10/10/20 22:04 Ordered Sodium Chloride 0.9% [Normal Saline] 250 ml IV ONETIME Sodium Chloride 0.9% [Normal Saline] 1,000 ml Med 10/10/20 16:45 Active IV .BOLUS Sodium Chloride 0.9% [Saline Flush] Med 10/10/20 16:32 Active 10 ml FLUSH ASDIRECTED PRN cefTRIAXone [Rocephin] 2 gm Med 10/11/20 19:00 Ordered Sodium Chloride 0.9% [Normal Saline] 100 ml IV Q24H dexAMETHasone Med 10/11/20 09:00 Ordered 6 mg PO DAILY Blood Culture x2 Reflex Set [OM.PC] Stat Oth 10/10/20 18:43 Ordered Isolation [COMM] Stat Oth 10/10/20 22:04 Ordered Peripheral IV Insertion Adult [OM.PC] Stat Oth 10/10/20 16:32 Ordered Code Status [Resuscitation Status] Stat Resus Stat 10/10/20 18:51 Ordered Medication Orders Acetaminophen (Tylenol) 650 mg PO Q4H PRN PRN Reason: Fever Greater Than 101 Dexamethasone (Dexamethasone) 6 mg PO DAILY HEIDI Stop: 10/20/20 09:01 Sodium Chloride (Normal Saline) 1,000 mls @ 1,000 mls/hr IV .BOLUS HEIDI Last Admin: 10/10/20 16:50 Dose: 1,000 mls/hr Documented by: DAHLIA Ceftriaxone Sodium 2 gm/ (Sodium Chloride) 100 mls @ 200 mls/hr IV Q24H HEIDI Stop: 10/14/20 19:29 Azithromycin 500 mg/ Sodium (Chloride) 250 mls @ 250 mls/hr IV Q24H HEIDI Stop: 10/12/20 22:59 Remdesivir 200 mg/ Sodium (Chloride) 250 mls @ 250 mls/hr IV ONETIME ONE Stop: 10/10/20 22:05 Remdesivir 100 mg/ Sodium (Chloride) 100 mls @ 100 mls/hr IV DAILY HEIDI Stop: 10/14/20 09:59 Sodium Chloride (Saline Flush) 10 ml FLUSH ASDIRECTED PRN PRN Reason: Keep Vein Open Last Admin: 10/10/20 16:51 Dose: 10 ml Documented by: DAHLIA Assessment/Plan Comment:: Assessment COVID-19 pneumonia * She is on 2 L nasal cannula at home and requiring 3 L nasal cannula here for adequate saturations in the low 90s. * Was Covid positive approximately 10 days ago. * WBC 3.31, D-dimer 1.07, C-reactive protein 4.6 and chest x-ray all consistent with COVID-19 pneumonia * Started on Rocephin in the emergency department Atrial fibrillation * INR 1.15. She states she is on warfarin 2.5 mL daily. * On metoprolol for rate control CHF/hypertension * proBNP not done in the emergency department, but chest x-ray does not show any significant heart failure. * On Lasix 40 mg daily, losartan, metoprolol * Requires 2 L/min nasal cannula secondary to CHF. Diabetes * Currently on metformin 500 mg daily for diabetes Plan * Admit to floor for treatment of COVID-19 pneumonia * Keep oxygen saturation between 88 and 94%. Currently on 3 L * Patient is out of the window for benefit of convalescent plasma. * Start remdesivir and dexamethasone. * Continue ceftriaxone for 5 days total, and start azithromycin * Check hemoglobin A1c and start sliding scale insulin. Hold metformin while hospitalized. * Monitor fluid status and weights closely. Continue furosemide 40 mg daily * Subtherapeutic INR, therefore will start therapeutic Lovenox at 1 mg/kg every 12 hours and get pharmacy to dose warfarin. * CODE STATUS: DNR/DNI * Length of stay a minimum of 5 days secondary to COVID-19 treatment with remdesivir. * Patient has a poor prognosis secondary to multiple medical problems including heart disease and diabetes, as well she is on oxygen at home for her CHF and she is 89 years old. - Mortality Measure Prognosis:: Poor
[2020-10-11] MEDS: Azithromycin 500 MG in Sodium Chloride 0.9% 250 ML IV SCH ×2 (00:04→21:20)
[2020-10-11] MEDS ORDERED: 50% Dextrose in Water 50 ML Syringe IV PRN (00:31)
[2020-10-11] MEDS ORDERED: Warfarin 2.5 MG Tab PO ONE (01:00)
[2020-10-11] MEDS ORDERED: Insulin Regular, Human 100 Units/ML 3 ML Vial ONE (09:23)
[2020-10-11] MEDS: Dexamethasone 4 MG Tab PO SCH (09:38)
[2020-10-11] MEDS: Insulin Lispro 100 Units/ML 3 ML Vial SUBCUT SCH ×4 (09:39→21:00)
[2020-10-11] MEDS ORDERED: Magnesium Sulfate/Water 4 GM in Premix Bag 1 BAG IV ONE (09:55)
[2020-10-11] MEDS: Potassium Chloride 10 MEQ in Premix Bag 1 BAG IV SCH ×4 (11:00→15:14)
[2020-10-11] MEDS: Enoxaparin 100 MG/1 ML Syringe SUBCUT SCH ×2 (12:26→23:54)
[2020-10-11] MEDS: Nystatin Topical Powder 15 GM Bottle TOP SCH ×2 (15:15→20:45)
[2020-10-11] MEDS ORDERED: Warfarin 5 MG Tab PO ONE (18:00)
[2020-10-11] MEDS ORDERED: Nitroglycerin 0.4 MG Tab.SL SL PRN (18:18)
--- NOTE | 2020-10-11 18:23 | PCM.PN ---
- General Info Date of Service: 10/11/20 Admission Dx/Problem (Free Text): Admission Diagnosis/Problem Admission Diagnosis/Problem Pneumonia Subjective Update: Patient states that she is feeling better this morning. She is less short of breath. Oxygen requirements have increased from 2 L/min to 4 L/min - Review of Systems General: Reports: No Symptoms HEENT: Reports: No Symptoms Pulmonary: Reports: Shortness of Breath, Cough Cardiovascular: Reports: No Symptoms Gastrointestinal: Reports: No Symptoms Musculoskeletal: Reports: No Symptoms Neurological: Reports: No Symptoms - Patient Data Vitals - Most Recent: Last Vital Signs Temp 99.2 F 10/11/20 15:18 Pulse 85 10/11/20 15:18 Resp 18 10/11/20 15:18 BP 122/69 10/11/20 15:18 Pulse Ox 88 L 10/11/20 15:18 Weight - Most Recent: 230 lb I&O - Last 24 Hours: Intake & Output 10/11/20 10/11/20 10/11/20 06:59 14:59 22:59 Intake Total 1100 436 Output Total 250 300 Balance 1100 -250 136 Lab Results Last 24 Hours: Laboratory Results - last 24 hr 10/10/20 10/11/20 10/11/20 Range/Units 16:55 05:15 05:15 WBC 3.07 L (3.98-10.04) K/mm3 RBC 4.40 (3.98-5.22) M/mm3 Hgb 12.3 (11.2-15.7) gm/dl Hct 38.6 (34.1-44.9) % MCV 87.7 (79.4-94.8) fl MCH 28.0 (25.6-32.2) pg MCHC 31.9 L (32.2-35.5) g/dl RDW Std Deviation 47.3 H (36.4-46.3) fL Plt Count 168 L (182-369) K/mm3 MPV 10.3 (9.4-12.3) fl Neut % (Auto) 69.8 (34.0-71.1) % Lymph % (Auto) 19.2 L (19.3-51.7) % [place] % (Auto) 10.4 (4.7-12.5) % Eos % (Auto) 0.3 L (0.7-5.8) Baso % (Auto) 0.0 L (0.1-1.2) % Neut # (Auto) 2.14 (1.56-6.13) K/mm3 Lymph # (Auto) 0.59 L (1.18-3.74) K/mm3 [place] # (Auto) 0.32 (0.24-0.36) K/mm3 Eos # (Auto) 0.01 L (0.04-0.36) K/mm3 Baso # (Auto) 0.00 L (0.01-0.08) K/mm3 PT 12.3 H 12.7 H (9.7-12.0) SECONDS INR 1.15 1.19 D-Dimer, Quantitative 1.82 H (0.19-0.50) mg/L Sodium (136-145) mEq/L Potassium (3.5-5.1) mEq/L Chloride (98-107) mEq/L Carbon Dioxide (21-32) mEq/L Anion Gap (5-15) BUN (7-18) mg/dL Creatinine (0.55-1.02) mg/dL Est Cr Clr Drug Dosing mL/min Estimated GFR (MDRD) (>60) mL/min BUN/Creatinine Ratio (14-18) Glucose (83-115) mg/dL POC Glucose (83-110) mg/dL Calcium (8.5-10.1) mg/dL Phosphorus (2.6-4.7) mg/dL Magnesium (1.8-2.4) mg/dl Total Bilirubin (0.2-1.0) mg/dL AST (15-37) U/L ALT (14-59) U/L Alkaline Phosphatase (46-116) U/L C-Reactive Protein (<1.0) mg/dL Total Protein (6.4-8.2) g/dl Albumin (3.4-5.0) g/dl Globulin gm/dL Albumin/Globulin Ratio (1-2) 10/11/20 10/11/20 10/11/20 Range/Units 05:15 06:33 10:58 WBC (3.98-10.04) K/mm3 RBC (3.98-5.22) M/mm3 Hgb (11.2-15.7) gm/dl Hct (34.1-44.9) % MCV (79.4-94.8) fl MCH (25.6-32.2) pg MCHC (32.2-35.5) g/dl RDW Std Deviation (36.4-46.3) fL Plt Count (182-369) K/mm3 MPV (9.4-12.3) fl Neut % (Auto) (34.0-71.1) % Lymph % (Auto) (19.3-51.7) % [place] % (Auto) (4.7-12.5) % Eos % (Auto) (0.7-5.8) Baso % (Auto) (0.1-1.2) % Neut # (Auto) (1.56-6.13) K/mm3 Lymph # (Auto) (1.18-3.74) K/mm3 [place] # (Auto) (0.24-0.36) K/mm3 Eos # (Auto) (0.04-0.36) K/mm3 Baso # (Auto) (0.01-0.08) K/mm3 PT (9.7-12.0) SECONDS INR D-Dimer, Quantitative (0.19-0.50) mg/L Sodium 137 (136-145) mEq/L Potassium 3.1 L (3.5-5.1) mEq/L Chloride 99 (98-107) mEq/L Carbon Dioxide 30 (21-32) mEq/L Anion Gap 11.1 (5-15) BUN 15 (7-18) mg/dL Creatinine 0.7 (0.55-1.02) mg/dL Est Cr Clr Drug Dosing 47.05 mL/min Estimated GFR (MDRD) > 60 (>60) mL/min BUN/Creatinine Ratio 21.4 H (14-18) Glucose 171 H (83-115) mg/dL POC Glucose 194 H 189 H (83-110) mg/dL Calcium 7.5 L (8.5-10.1) mg/dL Phosphorus 2.4 L (2.6-4.7) mg/dL Magnesium 1.4 L (1.8-2.4) mg/dl Total Bilirubin 0.4 (0.2-1.0) mg/dL AST 19 (15-37) U/L ALT 23 (14-59) U/L Alkaline Phosphatase 43 L (46-116) U/L C-Reactive Protein 4.4 H* (<1.0) mg/dL Total Protein 5.7 L (6.4-8.2) g/dl Albumin 2.2 L (3.4-5.0) g/dl Globulin 3.5 gm/dL Albumin/Globulin Ratio 0.6 L (1-2) 14/20 Range/Units 17:09 WBC (3.98-10.04) K/mm3 RBC (3.98-5.22) M/mm3 Hgb (11.2-15.7) gm/dl Hct (34.1-44.9) % MCV (79.4-94.8) fl MCH (25.6-32.2) pg MCHC (32.2-35.5) g/dl RDW Std Deviation (36.4-46.3) fL Plt Count (182-369) K/mm3 MPV (9.4-12.3) fl Neut % (Auto) (34.0-71.1) % Lymph % (Auto) (19.3-51.7) % [place] % (Auto) (4.7-12.5) % Eos % (Auto) (0.7-5.8) Baso % (Auto) (0.1-1.2) % Neut # (Auto) (1.56-6.13) K/mm3 Lymph # (Auto) (1.18-3.74) K/mm3 [place] # (Auto) (0.24-0.36) K/mm3 Eos # (Auto) (0.04-0.36) K/mm3 Baso # (Auto) (0.01-0.08) K/mm3 PT (9.7-12.0) SECONDS INR D-Dimer, Quantitative (0.19-0.50) mg/L Sodium (136-145) mEq/L Potassium (3.5-5.1) mEq/L Chloride (98-107) mEq/L Carbon Dioxide (21-32) mEq/L Anion Gap (5-15) BUN (7-18) mg/dL Creatinine (0.55-1.02) mg/dL Est Cr Clr Drug Dosing mL/min Estimated GFR (MDRD) (>60) mL/min BUN/Creatinine Ratio (14-18) Glucose (83-115) mg/dL POC Glucose 292 H (83-110) mg/dL Calcium (8.5-10.1) mg/dL Phosphorus (2.6-4.7) mg/dL Magnesium (1.8-2.4) mg/dl Total Bilirubin (0.2-1.0) mg/dL AST (15-37) U/L ALT (14-59) U/L Alkaline Phosphatase (46-116) U/L C-Reactive Protein (<1.0) mg/dL Total Protein (6.4-8.2) g/dl Albumin (3.4-5.0) g/dl Globulin gm/dL Albumin/Globulin Ratio (1-2) Med Orders - Current: Current Medications Acetaminophen (Tylenol) 650 mg PO Q4H PRN PRN Reason: Fever Greater Than 101 Dexamethasone (Dexamethasone) 6 mg PO DAILY [facility] Stop: 10/20/20 09:01 Last Admin: 10/11/20 09:38 Dose: 6 mg Documented by: Dextrose/Water (Dextrose 50% In Water) 50 ml IV ASDIRECTED PRN PRN Reason: Hypoglycemia Enoxaparin Sodium (Lovenox) 100 mg SUBCUT Q12H [facility] Last Admin: 10/11/20 12:26 Dose: 100 mg Documented by: Sodium Chloride (Normal Saline) 1,000 mls @ 1,000 mls/hr IV .BOLUS [facility] Last Admin: 10/10/20 16:50 Dose: 1,000 mls/hr Documented by: Ceftriaxone Sodium 2 gm/ (Sodium Chloride) 100 mls @ 200 mls/hr IV Q24H [facility] Stop: 10/14/20 19:29 Azithromycin 500 mg/ Sodium (Chloride) 250 mls @ 250 mls/hr IV Q24H [facility] Stop: 10/12/20 22:59 Last Admin: 10/11/20 00:04 Dose: 250 mls/hr Documented by: Remdesivir 100 mg/ Sodium (Chloride) 100 mls @ 100 mls/hr IV Q24H [facility] Stop: 10/14/20 21:59 Insulin Human Lispro (Humalog) 0 unit SUBCUT QIDACANDBED [facility]; Protocol Last Admin: 10/11/20 17:55 Dose: 3 unit Documented by: Metoprolol Tartrate (Lopressor) 25 mg PO BID [facility] Nitroglycerin (Nitrostat) 0.4 mg SL ASDIRECTED PRN PRN Reason: Chest Pain Non-Formulary Medication (Atorvastatin) 20 mg PO BEDTIME [facility] Nystatin (Nystop) 0 gm TOP TID [facility] Last Admin: 10/11/20 15:15 Dose: 1 dose Documented by: Pantoprazole Sodium (Protonix) 40 mg PO DAILY [facility] Potassium Chloride (Klor-Con M20) 20 meq PO DAILY [facility] Sodium Chloride (Saline Flush) 10 ml FLUSH ASDIRECTED PRN PRN Reason: Keep Vein Open Last Admin: 10/10/20 16:51 Dose: 10 ml Documented by: Warfarin Sodium (Pharmacy To Dose - Warfarin) 1 dose .XX ASDIRECTED [facility] Discontinued Medications Ceftriaxone Sodium 2 gm/ (Sodium Chloride) 100 mls @ 200 mls/hr IV ONETIME ONE Stop: 10/10/20 19:13 Last Admin: 10/10/20 19:43 Dose: 200 mls/hr Documented by: Remdesivir 200 mg/ Sodium (Chloride) 250 mls @ 250 mls/hr IV ONETIME ONE Stop: 10/10/20 22:05 Last Admin: 10/11/20 00:07 Dose: 250 mls/hr Documented by: Magnesium Sulfate 4 gm/ Premix 50 mls @ 12.5 mls/hr IV ONETIME ONE Stop: 10/11/20 13:54 Last Admin: 10/11/20 11:00 Dose: 12.5 mls/hr Documented by: Potassium Chloride 10 meq/ (Premix) 100 mls @ 100 mls/hr IV Q1H [facility] Stop: 10/11/20 13:59 Last Admin: 10/11/20 15:14 Dose: 100 mls/hr Documented by: Insulin Human Regular (Humulin R) Confirm Administered Dose 300 unit .ROUTE .STK-MED ONE Stop: 10/11/20 09:24 Last Admin: 10/11/20 11:22 Dose: Not Given Documented by: Warfarin Sodium (Coumadin) 2.5 mg PO ONETIME ONE Stop: 10/11/20 01:01 Last Admin: 10/11/20 01:57 Dose: 2.5 mg Documented by: Warfarin Sodium (Coumadin) 5 mg PO ONETIME ONE Stop: 10/11/20 18:01 Last Admin: 10/11/20 18:00 Dose: 5 mg Documented by: - Exam Quality Assessment: Supplemental Oxygen General: Alert, Oriented HEENT: Pupils Equal, Mucous Membr. Moist/[place] Neck: Supple Lungs: No: Normal Respiratory Effort (Increased respiratory rate and effort) Cardiovascular: Regular Rate, Regular Rhythm GI/Abdominal Exam: Normal Bowel Sounds, Soft, Non-Tender, No Distention Extremities: Normal Inspection, Normal Capillary Refill, Pedal Edema (1+) Skin: Warm, Dry, Intact Psy/Mental Status: Alert, Normal Affect, Normal Mood Sepsis Event Note - Evaluation Sepsis Screening Result: No Definite Risk - Focused Exam Vital Signs: Vital Signs Temp Pulse Resp BP Pulse Ox 10/11/20 15:18 99.2 F 85 18 122/69 88 L 10/11/20 12:58 98.0 F 10/11/20 12:00 102.0 F H 93 18 120/65 88 L 10/11/20 09:34 99.7 F 93 16 131/81 92 L - Problem List & Annotations (1) Prolonged Q-T interval on ECG SNOMED Code(s): 041917819 Code(s): R94.31 - ABNORMAL ELECTROCARDIOGRAM [ECG] [EKG] Status: Acute Current Visit: Yes (2) COVID-19 SNOMED Code(s): 794241173 Code(s): U07.1 - COVID-19 Status: Acute Current Visit: Yes (3) Pneumonia due to COVID-19 virus SNOMED Code(s): 208927064133911506 Code(s): U07.1 - COVID-19; J12.89 - OTHER VIRAL PNEUMONIA Status: Acute Current Visit: Yes (4) Afib, Atrial fibrillation and flutter SNOMED Code(s): 108056164 Code(s): I48.91 - UNSPECIFIED ATRIAL FIBRILLATION; I48.92 - UNSPECIFIED ATRIAL FLUTTER Status: Chronic Priority: Medium Current Visit: No (5) Hypertension SNOMED Code(s): 56244652 Code(s): I10 - ESSENTIAL (PRIMARY) HYPERTENSION Status: Chronic Priority: Medium Current Visit: No Qualifiers: Hypertension type: unspecified Qualified Code(s): I10 - Essential (primary) hypertension (6) Pulmonary hypertension SNOMED Code(s): 24100001 Code(s): I27.20 - PULMONARY HYPERTENSION, UNSPECIFIED Status: Chronic Priority: Medium Current Visit: No - Problem List Review Problem List Initiated/Reviewed/Updated: Yes - My Orders Last 24 Hours: My Active Orders 10/10/20 22:00 Azithromycin [Zithromax] 500 mg Sodium Chloride 0.9% [Normal Saline (AdvBag)] 250 ml IV Q24H 10/10/20 22:04 Acetaminophen [TylenoL] 650 mg PO Q4H PRN Isolation [COMM] Stat 10/10/20 22:07 Nurse Communication: Isolation [RC] ASDIRECTED 10/11/20 00:31 Blood Glucose Check, Bedside [RC] WITHMEALSANDBED Up With Assistance [RC] ASDIRECTED Dextrose 50% in Water 50 ml IV ASDIRECTED PRN 10/11/20 00:45 Pharmacy to Dose - Warfarin 1 dose .XX ASDIRECTED 10/11/20 03:40 Patient Status [ADT] Routine 10/11/20 05:15 PROCALCITONIN [REF] Routine 10/11/20 Breakfast [employer] [place] [employer] Diet [DIET] Insulin Lispro [HumaLOG] See Protocol SUBCUT QIDACANDBED 10/11/20 09:00 dexAMETHasone 6 mg PO DAILY 10/11/20 11:00 Enoxaparin [Lovenox] 100 mg SUBCUT Q12H 10/11/20 15:00 Nystatin [Nystop] 0 gm TOP TID 10/11/20 18:18 Nitroglycerin [Nitrostat] 0.4 mg SL ASDIRECTED PRN 10/11/20 19:00 cefTRIAXone [Rocephin] 2 gm Sodium Chloride 0.9% [Normal Saline] 100 ml IV Q24H 10/11/20 21:00 Metoprolol Tartrate [Lopressor] 25 mg PO BID Remdesivir (Eua) [Remdesivir (EUA)] 100 mg Sodium Chloride 0.9% [Normal Saline] 100 ml IV Q24H atorvaSTATin 20 mg PO BEDTIME 10/12/20 06:00 INR,PT,PROTHROMBIN TIME [COAG] DAILY Furosemide [Lasix] 20 mg IVPUSH BIDDIURETIC 10/12/20 09:00 Pantoprazole [ProTONIX] 40 mg PO DAILY Potassium Chloride [Klor-Con M20] 20 meq PO DAILY 10/13/20 06:00 INR,PT,PROTHROMBIN TIME [COAG] DAILY 10/14/20 06:00 INR,PT,PROTHROMBIN TIME [COAG] DAILY 10/15/20 06:00 INR,PT,PROTHROMBIN TIME [COAG] DAILY 10/16/20 06:00 INR,PT,PROTHROMBIN TIME [COAG] DAILY 10/17/20 06:00 INR,PT,PROTHROMBIN TIME [COAG] DAILY 10/18/20 06:00 INR,PT,PROTHROMBIN TIME [COAG] DAILY 10/19/20 06:00 INR,PT,PROTHROMBIN TIME [COAG] DAILY 10/20/20 06:00 INR,PT,PROTHROMBIN TIME [COAG] DAILY 10/21/20 06:00 INR,PT,PROTHROMBIN TIME [COAG] DAILY 10/22/20 06:00 INR,PT,PROTHROMBIN TIME [COAG] DAILY 10/23/20 06:00 INR,PT,PROTHROMBIN TIME [COAG] DAILY 10/24/20 06:00 INR,PT,PROTHROMBIN TIME [COAG] DAILY 10/25/20 06:00 INR,PT,PROTHROMBIN TIME [COAG] DAILY 10/26/20 06:00 INR,PT,PROTHROMBIN TIME [COAG] DAILY 10/27/20 06:00 INR,PT,PROTHROMBIN TIME [COAG] DAILY - Plan Plan:: Assessment COVID-19 pneumonia * She is on 2 L nasal cannula at home and requiring 4 L nasal cannula here for adequate saturations in the low 90s. * Was Covid positive approximately 10 days ago. * WBC 3.1, D-dimer 1.82, CRP 4.4 * On dexamethasone, remdesivir, ceftriaxone, and azithromycin Atrial fibrillation * Subtherapeutic INR, INR 1.19 * Pharmacy dosing * On metoprolol for rate control CHF/hypertension * proBNP not done in the emergency department, but chest x-ray does not show any significant heart failure. * Appears her dose of Lasix is much higher than we originally told. It appears her Lasix dose is 80 mg twice daily. This may be a reason her oxygen needs have gone up. * Requires 2 L/min nasal cannula secondary to CHF at home. Diabetes * Blood sugars ranging from 189-292 * On low-dose sliding scalelikely will need long-acting insulin Hypokalemia, hypophosphatemia, and hypomagnesemia * potassium of 3.1, phosphorus 2.4, and magnesium 1.4 Plan * Admit to floor for treatment of COVID-19 pneumonia * Keep oxygen saturation between 88 and 94%. Currently on 4 L * Continue remdesivir for total of 5 days and dexamethasone for up to 10 days. * Continue ceftriaxone for 5 days total, and azithromycin for 3 days * Correct electrolytes * Strict I's and O's and daily weights * Subtherapeutic INR, continue therapeutic Lovenox at 1 mg/kg every 12 hours until INR is therapeutic. * CODE STATUS: DNR/DNI * Length of stay a minimum of 5 days secondary to COVID-19 treatment with remdesivir. * Patient has a poor prognosis secondary to multiple medical problems including heart disease and diabetes, as well she is on oxygen at home for her CHF and she is 89 years old.
[2020-10-11] MEDS: cefTRIAXone 2 GM in Sodium Chloride 0.9% 100 ML IV SCH (18:41)
[2020-10-11] MEDS: REMDESIVIR 100 MG in Sodium Chloride 0.9% 100 ML IV SCH (20:38)
[2020-10-11] MEDS: Metoprolol Tartrate 25 MG Tab PO SCH (20:44)
[2020-10-11] MEDS: Simvastatin 20 MG Tab PO SCH (20:44)
[2020-10-12] MEDS ORDERED: Furosemide 20 MG/2 ML VIAL IVPUSH SCH (06:00)
[2020-10-12] MEDS: Furosemide 40 MG/4 ML VIAL IVPUSH SCH ×2 (06:30→15:39)
[2020-10-12] MEDS: Insulin Lispro 100 Units/ML 3 ML Vial SUBCUT SCH ×4 (08:54→22:11)
[2020-10-12] MEDS: Pantoprazole 40 MG Tab.CR PO SCH (08:58)
[2020-10-12] MEDS: Dexamethasone 4 MG Tab PO SCH (08:59)
[2020-10-12] MEDS: Metoprolol Tartrate 25 MG Tab PO SCH ×2 (09:00→22:10)
[2020-10-12] MEDS: Potassium Chloride 20 MEQ Tab.ER PO SCH (09:01)
[2020-10-12] MEDS: Nystatin Topical Powder 15 GM Bottle TOP SCH ×3 (09:02→22:13)
[2020-10-12] MEDS: Enoxaparin 100 MG/1 ML Syringe SUBCUT SCH ×2 (11:22→22:10)
[2020-10-12] MEDS: Insulin Glarg,Human.Rec.Analog 100 Unit/ML SUBCUT SCH (13:14)
--- NOTE | 2020-10-12 16:48 | PCM.PN ---
- General Info Date of Service: 10/12/20 Admission Dx/Problem (Free Text): Admission Diagnosis/Problem Admission Diagnosis/Problem Pneumonia Subjective Update: Patient is on 4 L nasal cannula and at home she is on 2 L. Patient states that she is feeling better and her appetite is improving. Functional Status: Reports: Pain Controlled - Review of Systems General: Reports: Fatigue HEENT: Reports: No Symptoms Pulmonary: Reports: No Symptoms Cardiovascular: Reports: No Symptoms Musculoskeletal: Reports: No Symptoms - Patient Data Vitals - Most Recent: Last Vital Signs Temp 97.7 F 10/12/20 15:52 Pulse 74 10/12/20 15:52 Resp 22 H 10/12/20 15:52 BP 117/89 10/12/20 15:52 Pulse Ox 90 L 10/12/20 15:52 Weight - Most Recent: 226 lb 6.4 oz I&O - Last 24 Hours: Intake & Output 10/12/20 10/12/20 10/12/20 06:59 14:59 22:59 Intake Total 041 598 4825 Output Total 650 1250 Balance -50 180 90 Lab Results Last 24 Hours: Laboratory Results - last 24 hr 10/11/20 10/11/20 10/11/20 Range/Units 05:15 17:09 20:37 PT (9.7-12.0) SECONDS INR Sodium (136-145) mEq/L Potassium (3.5-5.1) mEq/L Chloride (98-107) mEq/L Carbon Dioxide (21-32) mEq/L Anion Gap (5-15) BUN (7-18) mg/dL Creatinine (0.55-1.02) mg/dL Est Cr Clr Drug Dosing mL/min Estimated GFR (MDRD) (>60) mL/min BUN/Creatinine Ratio (14-18) Glucose (83-115) mg/dL POC Glucose 292 H 280 H (83-110) mg/dL Calcium (8.5-10.1) mg/dL Phosphorus (2.6-4.7) mg/dL Magnesium (1.8-2.4) mg/dl Total Bilirubin (0.2-1.0) mg/dL AST (15-37) U/L ALT (14-59) U/L Alkaline Phosphatase (46-116) U/L Total Protein (6.4-8.2) g/dl Albumin (3.4-5.0) g/dl Globulin gm/dL Albumin/Globulin Ratio (1-2) Procalcitonin <0.05 (<0.10) ng/mL 10/12/20 10/12/20 10/12/20 Range/Units 05:50 06:15 06:18 PT 16.2 H (9.7-12.0) SECONDS INR 1.53 Sodium 138 (136-145) mEq/L Potassium 3.9 (3.5-5.1) mEq/L Chloride 100 (98-107) mEq/L Carbon Dioxide 32 (21-32) mEq/L Anion Gap 9.9 (5-15) BUN 15 (7-18) mg/dL Creatinine 0.8 (0.55-1.02) mg/dL Est Cr Clr Drug Dosing 41.17 mL/min Estimated GFR (MDRD) > 60 (>60) mL/min BUN/Creatinine Ratio 18.8 H (14-18) Glucose 225 H (83-115) mg/dL POC Glucose 229 H (83-110) mg/dL Calcium 8.3 L (8.5-10.1) mg/dL Phosphorus 2.8 (2.6-4.7) mg/dL Magnesium 2.4 (1.8-2.4) mg/dl Total Bilirubin 0.4 (0.2-1.0) mg/dL AST 14 L (15-37) U/L ALT 23 (14-59) U/L Alkaline Phosphatase 50 (46-116) U/L Total Protein 6.1 L (6.4-8.2) g/dl Albumin 2.2 L (3.4-5.0) g/dl Globulin 3.9 gm/dL Albumin/Globulin Ratio 0.6 L (1-2) Procalcitonin (<0.10) ng/mL 10/12/20 Range/Units 11:17 PT (9.7-12.0) SECONDS INR Sodium (136-145) mEq/L Potassium (3.5-5.1) mEq/L Chloride (98-107) mEq/L Carbon Dioxide (21-32) mEq/L Anion Gap (5-15) BUN (7-18) mg/dL Creatinine (0.55-1.02) mg/dL Est Cr Clr Drug Dosing mL/min Estimated GFR (MDRD) (>60) mL/min BUN/Creatinine Ratio (14-18) Glucose (83-115) mg/dL POC Glucose 300 H (83-110) mg/dL Calcium (8.5-10.1) mg/dL Phosphorus (2.6-4.7) mg/dL Magnesium (1.8-2.4) mg/dl Total Bilirubin (0.2-1.0) mg/dL AST (15-37) U/L ALT (14-59) U/L Alkaline Phosphatase (46-116) U/L Total Protein (6.4-8.2) g/dl Albumin (3.4-5.0) g/dl Globulin gm/dL Albumin/Globulin Ratio (1-2) Procalcitonin (<0.10) ng/mL Dexter Results Last 24 Hours: Microbiology 10/10/20 19:31 Aerobic Blood Culture - Preliminary Blood - Venous NO GROWTH AFTER 1 DAY Anaerobic Blood Culture - Preliminary NO GROWTH AFTER 1 DAY 10/10/20 18:20 Aerobic Blood Culture - Preliminary Blood - Venous - Lab Draw NO GROWTH AFTER 1 DAY Anaerobic Blood Culture - Preliminary NO GROWTH AFTER 1 DAY Med Orders - Current: Current Medications Acetaminophen (Tylenol) 650 mg PO Q4H PRN PRN Reason: Fever Greater Than 101 Dexamethasone (Dexamethasone) 6 mg PO DAILY [facility] Stop: 10/20/20 09:01 Last Admin: 10/12/20 08:59 Dose: 6 mg Documented by: Dextrose/Water (Dextrose 50% In Water) 50 ml IV ASDIRECTED PRN PRN Reason: Hypoglycemia Enoxaparin Sodium (Lovenox) 100 mg SUBCUT Q12H [facility] Last Admin: 10/12/20 11:22 Dose: 100 mg Documented by: Furosemide (Lasix) 40 mg IVPUSH BIDDIURETIC [facility] Last Admin: 10/12/20 15:39 Dose: 40 mg Documented by: Sodium Chloride (Normal Saline) 1,000 mls @ 1,000 mls/hr IV .BOLUS [facility] Last Admin: 10/10/20 16:50 Dose: 1,000 mls/hr Documented by: Ceftriaxone Sodium 2 gm/ (Sodium Chloride) 100 mls @ 200 mls/hr IV Q24H [facility] Stop: 10/14/20 19:29 Last Admin: 10/11/20 18:41 Dose: 200 mls/hr Documented by: Azithromycin 500 mg/ Sodium (Chloride) 250 mls @ 250 mls/hr IV Q24H [facility] Stop: 10/12/20 22:59 Last Admin: 10/11/20 21:20 Dose: 250 mls/hr Documented by: Remdesivir 100 mg/ Sodium (Chloride) 100 mls @ 100 mls/hr IV Q24H [facility] Stop: 10/14/20 21:59 Last Admin: 10/11/20 20:38 Dose: 100 mls/hr Documented by: Insulin Glargine (Lantus) 7 unit SUBCUT DAILY [facility] Last Admin: 10/12/20 13:14 Dose: 7 units Documented by: Insulin Human Lispro (Humalog) 0 unit SUBCUT QIDACANDBED [facility]; Protocol Last Admin: 10/12/20 11:25 Dose: 4 unit Documented by: Metoprolol Tartrate (Lopressor) 25 mg PO BID [facility] Last Admin: 10/12/20 09:00 Dose: 25 mg Documented by: Nitroglycerin (Nitrostat) 0.4 mg SL ASDIRECTED PRN PRN Reason: Chest Pain Nystatin (Nystop) 0 gm TOP TID [facility] Last Admin: 10/12/20 15:40 Dose: 1 dose Documented by: Pantoprazole Sodium (Protonix) 40 mg PO DAILY [facility] Last Admin: 10/12/20 08:58 Dose: 40 mg Documented by: Potassium Chloride (Klor-Con M20) 20 meq PO DAILY [facility] Last Admin: 10/12/20 09:01 Dose: 20 meq Documented by: Simvastatin (Zocor) 20 mg PO BEDTIME [facility] Last Admin: 10/11/20 20:44 Dose: 20 mg Documented by: Sodium Chloride (Saline Flush) 10 ml FLUSH ASDIRECTED PRN PRN Reason: Keep Vein Open Last Admin: 10/10/20 16:51 Dose: 10 ml Documented by: Warfarin Sodium (Pharmacy To Dose - Warfarin) 1 dose .XX ASDIRECTED [facility] Warfarin Sodium (Coumadin) 3 mg PO QPM ONE Stop: 10/12/20 18:01 Discontinued Medications Furosemide (Lasix) 20 mg IVPUSH BIDDIURETIC [facility] Ceftriaxone Sodium 2 gm/ (Sodium Chloride) 100 mls @ 200 mls/hr IV ONETIME ONE Stop: 10/10/20 19:13 Last Admin: 10/10/20 19:43 Dose: 200 mls/hr Documented by: Remdesivir 200 mg/ Sodium (Chloride) 250 mls @ 250 mls/hr IV ONETIME ONE Stop: 10/10/20 22:05 Last Admin: 10/11/20 00:07 Dose: 250 mls/hr Documented by: Magnesium Sulfate 4 gm/ Premix 50 mls @ 12.5 mls/hr IV ONETIME ONE Stop: 10/11/20 13:54 Last Admin: 10/11/20 11:00 Dose: 12.5 mls/hr Documented by: Potassium Chloride 10 meq/ (Premix) 100 mls @ 100 mls/hr IV Q1H [facility] Stop: 10/11/20 13:59 Last Admin: 10/11/20 15:14 Dose: 100 mls/hr Documented by: Insulin Human Regular (Humulin R) Confirm Administered Dose 300 unit .ROUTE .STK-MED ONE Stop: 10/11/20 09:24 Last Admin: 10/11/20 11:22 Dose: Not Given Documented by: Warfarin Sodium (Coumadin) 2.5 mg PO ONETIME ONE Stop: 10/11/20 01:01 Last Admin: 10/11/20 01:57 Dose: 2.5 mg Documented by: Warfarin Sodium (Coumadin) 5 mg PO ONETIME ONE Stop: 10/11/20 18:01 Last Admin: 10/11/20 18:00 Dose: 5 mg Documented by: - Exam Quality Assessment: Supplemental Oxygen (Nasal cannula) General: Alert, Oriented HEENT: Pupils Equal, Mucous Membr. Moist/[place] Neck: Supple Lungs: Normal Respiratory Effort, Rales (Bibasilar) Cardiovascular: Regular Rate, Regular Rhythm GI/Abdominal Exam: Normal Bowel Sounds, Soft, Non-Tender, No Distention Extremities: Normal Inspection, Normal Range of Motion, No Pedal Edema Skin: Warm, Dry, Intact Psy/Mental Status: Alert, Normal Affect, Normal Mood Sepsis Event Note - Evaluation Sepsis Screening Result: No Definite Risk - Focused Exam Vital Signs: Vital Signs Temp Pulse Resp BP Pulse Ox Pulse Ox 10/12/20 15:52 97.7 F 74 22 H 117/89 90 L 10/12/20 11:36 90 L 10/12/20 11:06 97.5 F 91 22 H 107/61 90 L 10/12/20 09:00 106 H 103/51 L 10/12/20 08:51 97.9 F 106 H 24 H 103/51 L 96 - Problem List & Annotations (1) Prolonged Q-T interval on ECG SNOMED Code(s): 793906459 Code(s): R94.31 - ABNORMAL ELECTROCARDIOGRAM [ECG] [EKG] Status: Acute Current Visit: Yes (2) COVID-19 SNOMED Code(s): 307806382 Code(s): U07.1 - COVID-19 Status: Acute Current Visit: Yes (3) Pneumonia due to COVID-19 virus SNOMED Code(s): 531952781987426490 Code(s): U07.1 - COVID-19; J12.89 - OTHER VIRAL PNEUMONIA Status: Acute Current Visit: Yes (4) Afib, Atrial fibrillation and flutter SNOMED Code(s): 965079529 Code(s): I48.91 - UNSPECIFIED ATRIAL FIBRILLATION; I48.92 - UNSPECIFIED ATRIAL FLUTTER Status: Chronic Priority: Medium Current Visit: No (5) Hypertension SNOMED Code(s): 62932243 Code(s): I10 - ESSENTIAL (PRIMARY) HYPERTENSION Status: Chronic Priority: Medium Current Visit: No Qualifiers: Hypertension type: unspecified Qualified Code(s): I10 - Essential (primary) hypertension (6) Pulmonary hypertension SNOMED Code(s): 01947830 Code(s): I27.20 - PULMONARY HYPERTENSION, UNSPECIFIED Status: Chronic Priority: Medium Current Visit: No - Problem List Review Problem List Initiated/Reviewed/Updated: Yes - My Orders Last 24 Hours: My Active Orders 10/11/20 18:18 Nitroglycerin [Nitrostat] 0.4 mg SL ASDIRECTED PRN 10/11/20 19:00 cefTRIAXone [Rocephin] 2 gm Sodium Chloride 0.9% [Normal Saline] 100 ml IV Q24H 10/11/20 21:00 Metoprolol Tartrate [Lopressor] 25 mg PO BID Remdesivir (Eua) [Remdesivir (EUA)] 100 mg Sodium Chloride 0.9% [Normal Saline] 100 ml IV Q24H Simvastatin [Zocor] 20 mg PO BEDTIME 10/12/20 06:00 Furosemide [Lasix] 40 mg IVPUSH BIDDIURETIC 10/12/20 09:00 Pantoprazole [ProTONIX] 40 mg PO DAILY Potassium Chloride [Klor-Con M20] 20 meq PO DAILY 10/12/20 11:36 RT Chest Physiotherapy [RC] ASDIRECTED RT Incentive Spirometry [RC] ASDIRECTED 10/12/20 11:45 Insulin Glarg,Human.Rec.Analog [LantUS] 7 unit SUBCUT DAILY 10/12/20 18:00 Warfarin [Coumadin] 3 mg PO QPM ONE 10/13/20 06:00 INR,PT,PROTHROMBIN TIME [COAG] DAILY 10/14/20 06:00 INR,PT,PROTHROMBIN TIME [COAG] DAILY 10/15/20 06:00 INR,PT,PROTHROMBIN TIME [COAG] DAILY 10/16/20 06:00 INR,PT,PROTHROMBIN TIME [COAG] DAILY 10/17/20 06:00 INR,PT,PROTHROMBIN TIME [COAG] DAILY 10/18/20 06:00 INR,PT,PROTHROMBIN TIME [COAG] DAILY 10/19/20 06:00 INR,PT,PROTHROMBIN TIME [COAG] DAILY 10/20/20 06:00 INR,PT,PROTHROMBIN TIME [COAG] DAILY 10/21/20 06:00 INR,PT,PROTHROMBIN TIME [COAG] DAILY 10/22/20 06:00 INR,PT,PROTHROMBIN TIME [COAG] DAILY 10/23/20 06:00 INR,PT,PROTHROMBIN TIME [COAG] DAILY 10/24/20 06:00 INR,PT,PROTHROMBIN TIME [COAG] DAILY 10/25/20 06:00 INR,PT,PROTHROMBIN TIME [COAG] DAILY 10/26/20 06:00 INR,PT,PROTHROMBIN TIME [COAG] DAILY 10/27/20 06:00 INR,PT,PROTHROMBIN TIME [COAG] DAILY - Plan Plan:: Assessment COVID-19 pneumonia * She is on 2 L nasal cannula at home and requiring 4 L nasal cannula here for adequate saturations in the low 90s. * Was Covid positive approximately 10 days ago. * On dexamethasone, remdesivir, ceftriaxone, and azithromycin Atrial fibrillation * Subtherapeutic INR, * Pharmacy dosing warfarin * On metoprolol for rate control * On full dose Lovenox until INR is 2 CHF/hypertension * Appears her dose of Lasix is much higher than we originally told. It appears her Lasix dose is 80 mg twice daily. This may be a reason her oxygen needs have gone up. * Requires 2 L/min nasal cannula secondary to CHF at home. * Started on Lasix 40 mg IV twice daily here Diabetes * Blood sugars elevated, ranging from 189-292 * On low-dose sliding scalelikely will need long-acting insulin * Start glargine 7 units daily Hypokalemia, hypophosphatemia, and hypomagnesemiaresolved * Potassium 3.9, phosphorus 2.8, magnesium 2.4, Hypoalbuminemia * albumin 2.2 * Albumin is decreasing and that is concerning with COVID-19 Plan * Keep oxygen saturation between 88 and 94%. Currently on 4 L * Continue remdesivir for total of 5 days and dexamethasone for up to 10 days. * Continue ceftriaxone for 5 days total, and azithromycin for 3 days * Monitor electrolytes * Strict I's and O's and daily weights * Subtherapeutic INR, continue therapeutic Lovenox at 1 mg/kg every 12 hours until INR is therapeutic. Pharmacy dosing warfarin * CODE STATUS: DNR/DNI * Length of stay a minimum of 5 days secondary to COVID-19 treatment with remdesivir. * Patient has a poor prognosis secondary to multiple medical problems including heart disease and diabetes, as well she is on oxygen at home for her CHF and she is 89 years old.
[2020-10-12] MEDS ORDERED: Warfarin 3 MG Tab PO ONE (18:00)
[2020-10-12] MEDS: cefTRIAXone 2 GM in Sodium Chloride 0.9% 100 ML IV SCH (18:27)
[2020-10-12] MEDS: Simvastatin 20 MG Tab PO SCH (22:10)
[2020-10-12] MEDS: Azithromycin 500 MG in Sodium Chloride 0.9% 250 ML IV SCH (22:11)
[2020-10-12] MEDS: REMDESIVIR 100 MG in Sodium Chloride 0.9% 100 ML IV SCH (22:11)
[2020-10-13] MEDS: Furosemide 40 MG/4 ML VIAL IVPUSH SCH ×2 (06:37→14:13)
[2020-10-13] MEDS: Insulin Lispro 100 Units/ML 3 ML Vial SUBCUT SCH ×4 (08:31→23:20)
--- NOTE | 2020-10-13 09:10 | CR ---
PROCEDURE INFORMATION: Exam: XR Chest, 1 View Exam date and time: 10/10/2020 4:19 PM Age: 89 years old Clinical indication: Chest pain TECHNIQUE: Imaging protocol: XR of the chest Views: 1 view. COMPARISON: CR Chest 1V Frontal 10/31/2019 4:19 PM FINDINGS: Lungs: There is nonspecific consolidation in the left lung base. There is nonspecific ground-glass opacity in the lateral aspect of the left mid lung. There appears to be a rounded nodular density in the right hilum similar to the prior study. Pleural space: There are no pleural effusions present. Heart/Mediastinum: The heart demonstrates mild diffuse enlargement. The pulmonary arteries are not enlarged. Bones/joints: Unremarkable. IMPRESSION: 1. Left basilar atelectasis or pneumonia. 2. Nonspecific ground-glass density in the left lateral lung. 3. Mild cardiomegaly. Thank you for allowing us to participate in the care of your patient. Dictated and Authenticated by: Jj Hutson MD 10/10/2020 6:01 PM Central Time ([place] & [place]) [place]
[2020-10-13] MEDS: Nystatin Topical Powder 15 GM Bottle TOP SCH ×3 (10:00→21:08)
[2020-10-13] MEDS: Metoprolol Tartrate 25 MG Tab PO SCH ×2 (10:00→21:09)
[2020-10-13] MEDS: Dexamethasone 4 MG Tab PO SCH (10:01)
[2020-10-13] MEDS: Potassium Chloride 20 MEQ Tab.ER PO SCH (10:02)
[2020-10-13] MEDS: Pantoprazole 40 MG Tab.CR PO SCH (10:02)
[2020-10-13] MEDS: Insulin Glarg,Human.Rec.Analog 100 Unit/ML SUBCUT SCH (10:21)
--- NOTE | 2020-10-13 15:32 | PCM.PN ---
- General Info Date of Service: 10/13/20 Admission Dx/Problem (Free Text): Admission Diagnosis/Problem Admission Diagnosis/Problem Pneumonia Subjective Update: Patient has not had much change today. Appetite is improved and she did have a bowel movement yesterday. Functional Status: Reports: Pain Controlled - Review of Systems General: Reports: Fatigue HEENT: Reports: No Symptoms Pulmonary: Reports: Shortness of Breath Cardiovascular: Reports: No Symptoms Musculoskeletal: Reports: No Symptoms Psychiatric: Reports: No Symptoms - Patient Data Vitals - Most Recent: Last Vital Signs Temp 97.5 F 10/13/20 09:02 Pulse 66 10/13/20 10:00 Resp 20 10/13/20 09:02 BP 132/85 10/13/20 10:00 Pulse Ox 88 L 10/13/20 09:02 Weight - Most Recent: 225 lb I&O - Last 24 Hours: Intake & Output 10/13/20 10/13/20 10/13/20 06:59 14:59 22:59 Intake Total 750 180 Output Total 1600 Balance -850 180 Lab Results Last 24 Hours: Laboratory Results - last 24 hr 10/12/20 10/12/20 10/13/20 Range/Units 16:52 20:06 05:23 WBC (3.98-10.04) K/mm3 RBC (3.98-5.22) M/mm3 Hgb (11.2-15.7) gm/dl Hct (34.1-44.9) % MCV (79.4-94.8) fl MCH (25.6-32.2) pg MCHC (32.2-35.5) g/dl RDW Std Deviation (36.4-46.3) fL Plt Count (182-369) K/mm3 MPV (9.4-12.3) fl Neut % (Auto) (34.0-71.1) % Lymph % (Auto) (19.3-51.7) % [place] % (Auto) (4.7-12.5) % Eos % (Auto) (0.7-5.8) Baso % (Auto) (0.1-1.2) % Neut # (Auto) (1.56-6.13) K/mm3 Lymph # (Auto) (1.18-3.74) K/mm3 [place] # (Auto) (0.24-0.36) K/mm3 Eos # (Auto) (0.04-0.36) K/mm3 Baso # (Auto) (0.01-0.08) K/mm3 Manual Slide Review PT 33.2 H D (9.7-12.0) SECONDS INR 3.17 D-Dimer, Quantitative (0.19-0.50) mg/L Sodium (136-145) mEq/L Potassium (3.5-5.1) mEq/L Chloride (98-107) mEq/L Carbon Dioxide (21-32) mEq/L Anion Gap (5-15) BUN (7-18) mg/dL Creatinine (0.55-1.02) mg/dL Est Cr Clr Drug Dosing mL/min Estimated GFR (MDRD) (>60) mL/min BUN/Creatinine Ratio (14-18) Glucose (83-115) mg/dL POC Glucose 337 H 323 H (83-110) mg/dL Calcium (8.5-10.1) mg/dL Phosphorus (2.6-4.7) mg/dL Magnesium (1.8-2.4) mg/dl Total Bilirubin (0.2-1.0) mg/dL AST (15-37) U/L ALT (14-59) U/L Alkaline Phosphatase (46-116) U/L C-Reactive Protein (<1.0) mg/dL Total Protein (6.4-8.2) g/dl Albumin (3.4-5.0) g/dl Globulin gm/dL Albumin/Globulin Ratio (1-2) 10/13/20 10/13/20 10/13/20 Range/Units 05:23 05:23 05:23 WBC 3.55 L (3.98-10.04) K/mm3 RBC 4.67 (3.98-5.22) M/mm3 Hgb 13.0 (11.2-15.7) gm/dl Hct 40.8 (34.1-44.9) % MCV 87.4 (79.4-94.8) fl MCH 27.8 (25.6-32.2) pg MCHC 31.9 L (32.2-35.5) g/dl RDW Std Deviation 47.1 H (36.4-46.3) fL Plt Count 226 (182-369) K/mm3 MPV 10.6 (9.4-12.3) fl Neut % (Auto) 75.4 H (34.0-71.1) % Lymph % (Auto) 11.0 L (19.3-51.7) % [place] % (Auto) 13.0 H (4.7-12.5) % Eos % (Auto) 0 L (0.7-5.8) Baso % (Auto) 0.3 (0.1-1.2) % Neut # (Auto) 2.68 (1.56-6.13) K/mm3 Lymph # (Auto) 0.39 L (1.18-3.74) K/mm3 [place] # (Auto) 0.46 H (0.24-0.36) K/mm3 Eos # (Auto) 0.00 L (0.04-0.36) K/mm3 Baso # (Auto) 0.01 (0.01-0.08) K/mm3 Manual Slide Review Normal smear PT (9.7-12.0) SECONDS INR D-Dimer, Quantitative 2.22 H (0.19-0.50) mg/L Sodium 137 (136-145) mEq/L Potassium 3.6 (3.5-5.1) mEq/L Chloride 100 (98-107) mEq/L Carbon Dioxide 32 (21-32) mEq/L Anion Gap 8.6 (5-15) BUN 17 (7-18) mg/dL Creatinine 0.7 (0.55-1.02) mg/dL Est Cr Clr Drug Dosing 47.05 mL/min Estimated GFR (MDRD) > 60 (>60) mL/min BUN/Creatinine Ratio 24.3 H (14-18) Glucose 250 H (83-115) mg/dL POC Glucose (83-110) mg/dL Calcium 8.6 (8.5-10.1) mg/dL Phosphorus 2.7 (2.6-4.7) mg/dL Magnesium 1.9 (1.8-2.4) mg/dl Total Bilirubin 0.4 (0.2-1.0) mg/dL AST 12 L (15-37) U/L ALT 24 (14-59) U/L Alkaline Phosphatase 50 (46-116) U/L C-Reactive Protein 3.2 H* (<1.0) mg/dL Total Protein 6.0 L (6.4-8.2) g/dl Albumin 2.3 L (3.4-5.0) g/dl Globulin 3.7 gm/dL Albumin/Globulin Ratio 0.6 L (1-2) 10/13/20 10/13/20 Range/Units 06:27 11:23 WBC (3.98-10.04) K/mm3 RBC (3.98-5.22) M/mm3 Hgb (11.2-15.7) gm/dl Hct (34.1-44.9) % MCV (79.4-94.8) fl MCH (25.6-32.2) pg MCHC (32.2-35.5) g/dl RDW Std Deviation (36.4-46.3) fL Plt Count (182-369) K/mm3 MPV (9.4-12.3) fl Neut % (Auto) (34.0-71.1) % Lymph % (Auto) (19.3-51.7) % [place] % (Auto) (4.7-12.5) % Eos % (Auto) (0.7-5.8) Baso % (Auto) (0.1-1.2) % Neut # (Auto) (1.56-6.13) K/mm3 Lymph # (Auto) (1.18-3.74) K/mm3 [place] # (Auto) (0.24-0.36) K/mm3 Eos # (Auto) (0.04-0.36) K/mm3 Baso # (Auto) (0.01-0.08) K/mm3 Manual Slide Review PT (9.7-12.0) SECONDS INR D-Dimer, Quantitative (0.19-0.50) mg/L Sodium (136-145) mEq/L Potassium (3.5-5.1) mEq/L Chloride (98-107) mEq/L Carbon Dioxide (21-32) mEq/L Anion Gap (5-15) BUN (7-18) mg/dL Creatinine (0.55-1.02) mg/dL Est Cr Clr Drug Dosing mL/min Estimated GFR (MDRD) (>60) mL/min BUN/Creatinine Ratio (14-18) Glucose (83-115) mg/dL POC Glucose 246 H 241 H (83-110) mg/dL Calcium (8.5-10.1) mg/dL Phosphorus (2.6-4.7) mg/dL Magnesium (1.8-2.4) mg/dl Total Bilirubin (0.2-1.0) mg/dL AST (15-37) U/L ALT (14-59) U/L Alkaline Phosphatase (46-116) U/L C-Reactive Protein (<1.0) mg/dL Total Protein (6.4-8.2) g/dl Albumin (3.4-5.0) g/dl Globulin gm/dL Albumin/Globulin Ratio (1-2) Dexter Results Last 24 Hours: Microbiology 10/10/20 19:31 Aerobic Blood Culture - Preliminary Blood - Venous NO GROWTH AFTER 2 DAYS Anaerobic Blood Culture - Preliminary NO GROWTH AFTER 2 DAYS 10/10/20 18:20 Aerobic Blood Culture - Preliminary Blood - Venous - Lab Draw NO GROWTH AFTER 2 DAYS Anaerobic Blood Culture - Preliminary NO GROWTH AFTER 2 DAYS Med Orders - Current: Current Medications Acetaminophen (Tylenol) 650 mg PO Q4H PRN PRN Reason: Fever Greater Than 101 Dexamethasone (Dexamethasone) 6 mg PO DAILY [facility] Stop: 10/20/20 09:01 Last Admin: 10/13/20 10:01 Dose: 6 mg Documented by: Dextrose/Water (Dextrose 50% In Water) 50 ml IV ASDIRECTED PRN PRN Reason: Hypoglycemia Furosemide (Lasix) 40 mg IVPUSH BIDDIURETIC [facility] Last Admin: 10/13/20 14:13 Dose: 40 mg Documented by: Ceftriaxone Sodium 2 gm/ (Sodium Chloride) 100 mls @ 200 mls/hr IV Q24H [facility] Stop: 10/14/20 19:29 Last Admin: 10/12/20 18:27 Dose: 200 mls/hr Documented by: Remdesivir 100 mg/ Sodium (Chloride) 100 mls @ 100 mls/hr IV Q24H [facility] Stop: 10/14/20 21:59 Last Admin: 10/12/20 22:11 Dose: 100 mls/hr Documented by: Insulin Glargine (Lantus) 7 unit SUBCUT DAILY [facility] Last Admin: 10/13/20 10:21 Dose: 7 units Documented by: Insulin Human Lispro (Humalog) 0 unit SUBCUT QIDACANDBED [facility]; Protocol Last Admin: 10/13/20 11:27 Dose: 4 units Documented by: Metoprolol Tartrate (Lopressor) 25 mg PO BID [facility] Last Admin: 10/13/20 10:00 Dose: 25 mg Documented by: Nitroglycerin (Nitrostat) 0.4 mg SL ASDIRECTED PRN PRN Reason: Chest Pain Nystatin (Nystop) 0 gm TOP TID [facility] Last Admin: 10/13/20 10:00 Dose: 1 dose Documented by: Pantoprazole Sodium (Protonix) 40 mg PO DAILY [facility] Last Admin: 10/13/20 10:02 Dose: 40 mg Documented by: Potassium Chloride (Klor-Con M20) 20 meq PO DAILY [facility] Last Admin: 10/13/20 10:02 Dose: 20 meq Documented by: Simvastatin (Zocor) 20 mg PO BEDTIME [facility] Last Admin: 10/12/20 22:10 Dose: 20 mg Documented by: Sodium Chloride (Saline Flush) 10 ml FLUSH ASDIRECTED PRN PRN Reason: Keep Vein Open Last Admin: 10/10/20 16:51 Dose: 10 ml Documented by: Warfarin Sodium (Pharmacy To Dose - Warfarin) 1 dose .XX ASDIRECTED PRN PRN Reason: RX TO DOSE WARFARIN Warfarin Sodium (Coumadin Sliding Scale) 0 each PO QPM [facility] Stop: 10/13/20 18:01 Discontinued Medications Enoxaparin Sodium (Lovenox) 100 mg SUBCUT Q12H [facility] Last Admin: 10/12/20 22:10 Dose: 100 mg Documented by: Furosemide (Lasix) 20 mg IVPUSH BIDDIURETIC [facility] Sodium Chloride (Normal Saline) 1,000 mls @ 1,000 mls/hr IV .BOLUS [facility] Last Admin: 10/10/20 16:50 Dose: 1,000 mls/hr Documented by: Ceftriaxone Sodium 2 gm/ (Sodium Chloride) 100 mls @ 200 mls/hr IV ONETIME ONE Stop: 10/10/20 19:13 Last Admin: 10/10/20 19:43 Dose: 200 mls/hr Documented by: Azithromycin 500 mg/ Sodium (Chloride) 250 mls @ 250 mls/hr IV Q24H [facility] Stop: 10/12/20 22:59 Last Admin: 10/12/20 22:11 Dose: 250 mls/hr Documented by: Remdesivir 200 mg/ Sodium (Chloride) 250 mls @ 250 mls/hr IV ONETIME ONE Stop: 10/10/20 22:05 Last Admin: 10/11/20 00:07 Dose: 250 mls/hr Documented by: Magnesium Sulfate 4 gm/ Premix 50 mls @ 12.5 mls/hr IV ONETIME ONE Stop: 10/11/20 13:54 Last Admin: 10/11/20 11:00 Dose: 12.5 mls/hr Documented by: Potassium Chloride 10 meq/ (Premix) 100 mls @ 100 mls/hr IV Q1H [facility] Stop: 10/11/20 13:59 Last Admin: 10/11/20 15:14 Dose: 100 mls/hr Documented by: Insulin Human Lispro (Humalog) 0 unit SUBCUT QIDACANDBED [facility]; Protocol Last Admin: 10/12/20 22:11 Dose: 4 unit Documented by: Insulin Human Regular (Humulin R) Confirm Administered Dose 300 unit .ROUTE .STK-MED ONE Stop: 10/11/20 09:24 Last Admin: 10/11/20 11:22 Dose: Not Given Documented by: Warfarin Sodium (Coumadin) 2.5 mg PO ONETIME ONE Stop: 10/11/20 01:01 Last Admin: 10/11/20 01:57 Dose: 2.5 mg Documented by: Warfarin Sodium (Coumadin) 5 mg PO ONETIME ONE Stop: 10/11/20 18:01 Last Admin: 10/11/20 18:00 Dose: 5 mg Documented by: Warfarin Sodium (Coumadin) 3 mg PO QPM ONE Stop: 10/12/20 18:01 Last Admin: 10/12/20 17:01 Dose: 3 mg Documented by: - Exam Quality Assessment: Supplemental Oxygen (High flow nasal cannula) General: Alert, Oriented HEENT: Pupils Equal, Mucous Membr. Moist/[place] Neck: Supple Lungs: Decreased Breath Sounds, Crackles. No: Normal Respiratory Effort Cardiovascular: Irregular Rhythm (And rate) GI/Abdominal Exam: Normal Bowel Sounds, Soft, Non-Tender, No Distention Extremities: Normal Inspection, Normal Capillary Refill, Pedal Edema (1+) Skin: Warm, Dry, Intact Psy/Mental Status: Alert, Normal Affect, Normal Mood Sepsis Event Note - Evaluation Sepsis Screening Result: No Definite Risk - Focused Exam Vital Signs: Vital Signs Temp Pulse Resp BP Pulse Ox Pulse Ox 10/13/20 10:00 66 132/85 10/13/20 09:02 97.5 F 66 20 132/85 88 L 10/13/20 06:33 88 L 10/13/20 06:25 98.2 F 73 16 126/79 89 L - Problem List & Annotations (1) Prolonged Q-T interval on ECG SNOMED Code(s): 516296183 Code(s): R94.31 - ABNORMAL ELECTROCARDIOGRAM [ECG] [EKG] Status: Acute Current Visit: Yes (2) COVID-19 SNOMED Code(s): 294146863 Code(s): U07.1 - COVID-19 Status: Acute Current Visit: Yes (3) Pneumonia due to COVID-19 virus SNOMED Code(s): 382755168872021601 Code(s): U07.1 - COVID-19; J12.89 - OTHER VIRAL PNEUMONIA Status: Acute Current Visit: Yes (4) Afib, Atrial fibrillation and flutter SNOMED Code(s): 912046435 Code(s): I48.91 - UNSPECIFIED ATRIAL FIBRILLATION; I48.92 - UNSPECIFIED ATRIAL FLUTTER Status: Chronic Priority: Medium Current Visit: Yes (5) Hypertension SNOMED Code(s): 28400707 Code(s): I10 - ESSENTIAL (PRIMARY) HYPERTENSION Status: Chronic Priority: Medium Current Visit: Yes Qualifiers: Hypertension type: unspecified Qualified Code(s): I10 - Essential (primary) hypertension (6) Pulmonary hypertension SNOMED Code(s): 81528355 Code(s): I27.20 - PULMONARY HYPERTENSION, UNSPECIFIED Status: Chronic Priority: Medium Current Visit: Yes - Problem List Review Problem List Initiated/Reviewed/Updated: Yes - My Orders Last 24 Hours: My Active Orders 10/13/20 07:00 Insulin Lispro [HumaLOG] See Protocol SUBCUT QIDACANDBED 10/13/20 [employer] Diet [DIET] 10/13/20 18:00 Warfarin Sliding Scale [Coumadin Sliding Scale] 0 each PO QPM 10/14/20 06:00 INR,PT,PROTHROMBIN TIME [COAG] DAILY 10/15/20 06:00 INR,PT,PROTHROMBIN TIME [COAG] DAILY 10/16/20 06:00 INR,PT,PROTHROMBIN TIME [COAG] DAILY 10/17/20 06:00 INR,PT,PROTHROMBIN TIME [COAG] DAILY 10/18/20 06:00 INR,PT,PROTHROMBIN TIME [COAG] DAILY 10/19/20 06:00 INR,PT,PROTHROMBIN TIME [COAG] DAILY 10/20/20 06:00 INR,PT,PROTHROMBIN TIME [COAG] DAILY 10/21/20 06:00 INR,PT,PROTHROMBIN TIME [COAG] DAILY 10/22/20 06:00 INR,PT,PROTHROMBIN TIME [COAG] DAILY 10/23/20 06:00 INR,PT,PROTHROMBIN TIME [COAG] DAILY 10/24/20 06:00 INR,PT,PROTHROMBIN TIME [COAG] DAILY 10/25/20 06:00 INR,PT,PROTHROMBIN TIME [COAG] DAILY 10/26/20 06:00 INR,PT,PROTHROMBIN TIME [COAG] DAILY 10/27/20 06:00 INR,PT,PROTHROMBIN TIME [COAG] DAILY - Plan Plan:: Assessment COVID-19 pneumonia * Currently on 6 L nasal cannula * Was Covid positive approximately 10 days prior to admission * On dexamethasone, remdesivir, ceftriaxone, and azithromycin * D-dimer increased 2.22 and C-reactive protein decreased to 3.2 Atrial fibrillation * INR increased to 3.17 * Pharmacy dosing warfarin * On metoprolol for rate control * Stop Lovenox CHF/hypertension * Weight and fluid balance are essentially neutral * Requires 2 L/min nasal cannula secondary to CHF at home. * Started on Lasix 40 mg IV twice daily here Diabetes * Blood sugars elevated, into the 300s * On low-dose sliding scalelikely will need long-acting insulin * glargine 7 units daily will need to increase Hypokalemia, hypophosphatemia, and hypomagnesemiaresolved * Potassium 3.9, phosphorus 2.8, magnesium 2.4, Hypoalbuminemia * albumin 2.3 * Albumin is low and that is concerning with COVID-19 Plan * Keep oxygen saturation between 88 and 94%. Currently on 6 L * Continue remdesivir for total of 5 days and dexamethasone for up to 10 days. * Continue ceftriaxone for 5 days total, and azithromycin for 3 days * Increase glargine to 10 units * Monitor electrolytes * Strict I's and O's and daily weights * Pharmacy dosing warfarin * CODE STATUS: DNR/DNI * Length of stay greater than 96 hours secondary to COVID-19 treatment with remdesivir. * Patient has a poor prognosis secondary to multiple medical problems including heart disease and diabetes, as well she is on oxygen at home for her CHF and she is 89 years old.
[2020-10-13] MEDS ORDERED: Warfarin Sliding Scale PO SCH (18:00)
[2020-10-13] MEDS: cefTRIAXone 2 GM in Sodium Chloride 0.9% 100 ML IV SCH (18:02)
[2020-10-13] MEDS: Simvastatin 20 MG Tab PO SCH (21:09)
[2020-10-13] MEDS: REMDESIVIR 100 MG in Sodium Chloride 0.9% 100 ML IV SCH (21:13)
[2020-10-14] MEDS: Furosemide 40 MG/4 ML VIAL IVPUSH SCH ×2 (07:03→13:16)
[2020-10-14] MEDS: Metoprolol Tartrate 25 MG Tab PO SCH ×2 (08:17→20:08)
[2020-10-14] MEDS: Potassium Chloride 20 MEQ Tab.ER PO SCH (08:17)
[2020-10-14] MEDS: Insulin Lispro 100 Units/ML 3 ML Vial SUBCUT SCH ×4 (08:17→21:25)
[2020-10-14] MEDS: Pantoprazole 40 MG Tab.CR PO SCH (08:17)
[2020-10-14] MEDS: Insulin Glarg,Human.Rec.Analog 100 Unit/ML SUBCUT SCH ×2 (08:19→21:28)
[2020-10-14] MEDS: Dexamethasone 4 MG Tab PO SCH (08:21)
[2020-10-14] MEDS: Nystatin Topical Powder 15 GM Bottle TOP SCH ×3 (08:22→20:13)
[2020-10-14 12:10] LABS: HEMOGLOBIN A1C 7.5 % (4.50-6.20)
[2020-10-14] MEDS: cefTRIAXone 2 GM in Sodium Chloride 0.9% 100 ML IV SCH (18:00)
[2020-10-14] MEDS ORDERED: Warfarin Sliding Scale PO SCH (18:00)
[2020-10-14] MEDS: Simvastatin 20 MG Tab PO SCH (20:08)
[2020-10-14] MEDS: REMDESIVIR 100 MG in Sodium Chloride 0.9% 100 ML IV SCH (20:09)
--- NOTE | 2020-10-14 20:16 | PCM.PN ---
- General Info Date of Service: 10/14/20 Admission Dx/Problem (Free Text): Admission Diagnosis/Problem Admission Diagnosis/Problem Pneumonia Subjective Update: Patient is without real significant change in symptoms. She continues on nasal cannula at 4 L/min FiO2. Functional Status: Reports: Pain Controlled - Review of Systems General: Reports: No Symptoms HEENT: Reports: No Symptoms Pulmonary: Reports: Shortness of Breath, Cough Cardiovascular: Reports: No Symptoms Gastrointestinal: Reports: No Symptoms Musculoskeletal: Reports: No Symptoms Psychiatric: Reports: No Symptoms - Patient Data Vitals - Most Recent: Last Vital Signs Temp 97.9 F 10/14/20 15:18 Pulse 80 10/14/20 20:08 Resp 22 H 10/14/20 15:18 BP 145/76 H 10/14/20 20:08 Pulse Ox 89 L 10/14/20 15:18 Weight - Most Recent: 223 lb 3.2 oz I&O - Last 24 Hours: Intake & Output 10/14/20 10/14/20 10/14/20 06:59 14:59 22:59 Intake Total 707 061 7033 Output Total 950 500 Balance -50 540 960 Lab Results Last 24 Hours: Laboratory Results - last 24 hr 10/13/20 10/14/20 10/14/20 Range/Units 21:04 05:32 05:32 PT 34.0 H (9.7-12.0) SECONDS INR 3.25 POC Glucose 360 H (83-110) mg/dL Hemoglobin A1c 7.50 H (4.50-6.20) % 10/14/20 10/14/20 10/14/20 Range/Units 07:06 11:44 16:29 PT (9.7-12.0) SECONDS INR POC Glucose 230 H 318 H 391 H (83-110) mg/dL Hemoglobin A1c (4.50-6.20) % 10/14/20 Range/Units 20:07 PT (9.7-12.0) SECONDS INR POC Glucose 400 H (83-110) mg/dL Hemoglobin A1c (4.50-6.20) % Dexter Results Last 24 Hours: Microbiology 10/10/20 19:31 Aerobic Blood Culture - Preliminary Blood - Venous NO GROWTH AFTER 4 DAYS Anaerobic Blood Culture - Preliminary NO GROWTH AFTER 4 DAYS 10/10/20 18:20 Aerobic Blood Culture - Preliminary Blood - Venous - Lab Draw NO GROWTH AFTER 4 DAYS Anaerobic Blood Culture - Preliminary NO GROWTH AFTER 4 DAYS Med Orders - Current: Current Medications Acetaminophen (Tylenol) 650 mg PO Q4H PRN PRN Reason: Fever Greater Than 101 Dexamethasone (Dexamethasone) 6 mg PO DAILY [facility] Stop: 10/20/20 09:01 Last Admin: 10/14/20 08:21 Dose: 6 mg Documented by: Dextrose/Water (Dextrose 50% In Water) 50 ml IV ASDIRECTED PRN PRN Reason: Hypoglycemia Furosemide (Lasix) 40 mg IVPUSH BIDDIURETIC [facility] Last Admin: 10/14/20 13:16 Dose: 40 mg Documented by: Remdesivir 100 mg/ Sodium (Chloride) 100 mls @ 100 mls/hr IV Q24H [facility] Stop: 10/14/20 21:59 Last Admin: 10/14/20 20:09 Dose: 100 mls/hr Documented by: Insulin Glargine (Lantus) 10 unit SUBCUT DAILY [facility] Last Admin: 10/14/20 08:19 Dose: 10 units Documented by: Insulin Human Lispro (Humalog) 0 unit SUBCUT QIDACANDBED [facility]; Protocol Last Admin: 10/14/20 17:24 Dose: 10 units Documented by: Metoprolol Tartrate (Lopressor) 25 mg PO BID [facility] Last Admin: 10/14/20 20:08 Dose: 25 mg Documented by: Nitroglycerin (Nitrostat) 0.4 mg SL ASDIRECTED PRN PRN Reason: Chest Pain Nystatin (Nystop) 0 gm TOP TID [facility] Last Admin: 10/14/20 20:13 Dose: 1 dose Documented by: Pantoprazole Sodium (Protonix) 40 mg PO DAILY [facility] Last Admin: 10/14/20 08:17 Dose: 40 mg Documented by: Potassium Chloride (Klor-Con M20) 20 meq PO DAILY [facility] Last Admin: 10/14/20 08:17 Dose: 20 meq Documented by: Simvastatin (Zocor) 20 mg PO BEDTIME [facility] Last Admin: 10/14/20 20:08 Dose: 20 mg Documented by: Sodium Chloride (Saline Flush) 10 ml FLUSH ASDIRECTED PRN PRN Reason: Keep Vein Open Last Admin: 10/10/20 16:51 Dose: 10 ml Documented by: Warfarin Sodium (Pharmacy To Dose - Warfarin) 1 dose .XX ASDIRECTED PRN PRN Reason: RX TO DOSE WARFARIN Discontinued Medications Enoxaparin Sodium (Lovenox) 100 mg SUBCUT Q12H [facility] Last Admin: 10/12/20 22:10 Dose: 100 mg Documented by: Furosemide (Lasix) 20 mg IVPUSH BIDDIURETIC [facility] Sodium Chloride (Normal Saline) 1,000 mls @ 1,000 mls/hr IV .BOLUS [facility] Last Admin: 10/10/20 16:50 Dose: 1,000 mls/hr Documented by: Ceftriaxone Sodium 2 gm/ (Sodium Chloride) 100 mls @ 200 mls/hr IV ONETIME ONE Stop: 10/10/20 19:13 Last Admin: 10/10/20 19:43 Dose: 200 mls/hr Documented by: Ceftriaxone Sodium 2 gm/ (Sodium Chloride) 100 mls @ 200 mls/hr IV Q24H [facility] Stop: 10/14/20 19:29 Last Admin: 10/14/20 18:00 Dose: 200 mls/hr Documented by: Azithromycin 500 mg/ Sodium (Chloride) 250 mls @ 250 mls/hr IV Q24H [facility] Stop: 10/12/20 22:59 Last Admin: 10/12/20 22:11 Dose: 250 mls/hr Documented by: Remdesivir 200 mg/ Sodium (Chloride) 250 mls @ 250 mls/hr IV ONETIME ONE Stop: 10/10/20 22:05 Last Admin: 10/11/20 00:07 Dose: 250 mls/hr Documented by: Magnesium Sulfate 4 gm/ Premix 50 mls @ 12.5 mls/hr IV ONETIME ONE Stop: 10/11/20 13:54 Last Admin: 10/11/20 11:00 Dose: 12.5 mls/hr Documented by: Potassium Chloride 10 meq/ (Premix) 100 mls @ 100 mls/hr IV Q1H [facility] Stop: 10/11/20 13:59 Last Admin: 10/11/20 15:14 Dose: 100 mls/hr Documented by: Insulin Glargine (Lantus) 7 unit SUBCUT DAILY [facility] Last Admin: 10/13/20 10:21 Dose: 7 units Documented by: Insulin Human Lispro (Humalog) 0 unit SUBCUT QIDACANDBED [facility]; Protocol Last Admin: 10/12/20 22:11 Dose: 4 unit Documented by: Insulin Human Regular (Humulin R) Confirm Administered Dose 300 unit .ROUTE .STK-MED ONE Stop: 10/11/20 09:24 Last Admin: 10/11/20 11:22 Dose: Not Given Documented by: Warfarin Sodium (Coumadin) 2.5 mg PO ONETIME ONE Stop: 10/11/20 01:01 Last Admin: 10/11/20 01:57 Dose: 2.5 mg Documented by: Warfarin Sodium (Coumadin) 5 mg PO ONETIME ONE Stop: 10/11/20 18:01 Last Admin: 10/11/20 18:00 Dose: 5 mg Documented by: Warfarin Sodium (Coumadin) 3 mg PO QPM ONE Stop: 10/12/20 18:01 Last Admin: 10/12/20 17:01 Dose: 3 mg Documented by: Warfarin Sodium (Coumadin Sliding Scale) 0 each PO QPM [facility] Stop: 10/13/20 18:01 Last Admin: 10/13/20 17:45 Dose: Not Given Documented by: Warfarin Sodium (Coumadin Sliding Scale) 0 each PO QPM [facility] Stop: 10/14/20 18:01 Last Admin: 10/14/20 17:27 Dose: Not Given Documented by: - Exam Quality Assessment: Supplemental Oxygen General: Alert, Oriented HEENT: Pupils Equal Neck: Supple Lungs: Rales (Bibasilar). No: Normal Respiratory Effort (Increased respiratory rate) Cardiovascular: Regular Rate, Regular Rhythm GI/Abdominal Exam: Normal Bowel Sounds, Soft, Non-Tender, No Distention Extremities: Normal Inspection, Normal Capillary Refill Skin: Warm, Dry, Intact Psy/Mental Status: Alert, Normal Affect, Normal Mood Sepsis Event Note - Evaluation Sepsis Screening Result: No Definite Risk - Focused Exam Vital Signs: Vital Signs Temp Pulse Resp BP Pulse Ox 10/14/20 20:08 80 145/76 H 10/14/20 15:18 97.9 F 65 22 H 138/69 89 L 10/14/20 12:46 97.5 F 72 20 126/74 94 L 10/14/20 12:36 97.7 F 72 20 160/146 H 92 L 10/14/20 08:17 78 141/90 H - Problem List & Annotations (1) Prolonged Q-T interval on ECG SNOMED Code(s): 701519222 Code(s): R94.31 - ABNORMAL ELECTROCARDIOGRAM [ECG] [EKG] Status: Acute Current Visit: Yes (2) COVID-19 SNOMED Code(s): 187166290 Code(s): U07.1 - COVID-19 Status: Acute Current Visit: Yes (3) Pneumonia due to COVID-19 virus SNOMED Code(s): 982399760988119337 Code(s): U07.1 - COVID-19; J12.89 - OTHER VIRAL PNEUMONIA Status: Acute Current Visit: Yes (4) Afib, Atrial fibrillation and flutter SNOMED Code(s): 391977737 Code(s): I48.91 - UNSPECIFIED ATRIAL FIBRILLATION; I48.92 - UNSPECIFIED ATRI AL FLUTTER Status: Chronic Priority: Medium Current Visit: Yes (5) Hypertension SNOMED Code(s): 19092277 Code(s): I10 - ESSENTIAL (PRIMARY) HYPERTENSION Status: Chronic Priority: Medium Current Visit: Yes Qualifiers: Hypertension type: unspecified Qualified Code(s): I10 - Essential (primary) hypertension (6) Pulmonary hypertension SNOMED Code(s): 32803491 Code(s): I27.20 - PULMONARY HYPERTENSION, UNSPECIFIED Status: Chronic Priority: Medium Current Visit: Yes - Problem List Review Problem List Initiated/Reviewed/Updated: Yes - My Orders Last 24 Hours: My Active Orders 10/14/20 09:00 Insulin Glarg,Human.Rec.Analog [LantUS] 10 unit SUBCUT DAILY 10/14/20 12:52 PT Evaluation and Treatment [CONS] Routine 10/14/20 12:53 OT Evaluation and Treatment [CONS] Routine 10/15/20 06:00 INR,PT,PROTHROMBIN TIME [COAG] DAILY 10/16/20 06:00 INR,PT,PROTHROMBIN TIME [COAG] DAILY 10/17/20 06:00 INR,PT,PROTHROMBIN TIME [COAG] DAILY 10/18/20 06:00 INR,PT,PROTHROMBIN TIME [COAG] DAILY 10/19/20 06:00 INR,PT,PROTHROMBIN TIME [COAG] DAILY 10/20/20 06:00 INR,PT,PROTHROMBIN TIME [COAG] DAILY 10/21/20 06:00 INR,PT,PROTHROMBIN TIME [COAG] DAILY 10/22/20 06:00 INR,PT,PROTHROMBIN TIME [COAG] DAILY 10/23/20 06:00 INR,PT,PROTHROMBIN TIME [COAG] DAILY 10/24/20 06:00 INR,PT,PROTHROMBIN TIME [COAG] DAILY 10/25/20 06:00 INR,PT,PROTHROMBIN TIME [COAG] DAILY 10/26/20 06:00 INR,PT,PROTHROMBIN TIME [COAG] DAILY 10/27/20 06:00 INR,PT,PROTHROMBIN TIME [COAG] DAILY - Plan Plan:: Assessment COVID-19 pneumonia * Currently on 4-5 L nasal cannula * Was Covid positive approximately 10 days prior to admission * On dexamethasone, remdesivir, ceftriaxone, and azithromycin Atrial fibrillation * INR increased to 3.25 * Pharmacy dosing warfarin * On metoprolol for rate control CHF/hypertension * Weight and fluid balance are essentially neutral * Requires 2 L/min nasal cannula secondary to CHF at home. * Started on Lasix 40 mg IV twice daily here Diabetes * Blood sugars elevated, into the 300s * Started on Lantus and sliding scale in hospital Hypokalemia, hypophosphatemia, and hypomagnesemiaresolved * Potassium 3.9, phosphorus 2.8, magnesium 2.4, Hypoalbuminemia * albumin 2.3 * Albumin is low and that is concerning with COVID-19 Plan * Keep oxygen saturation between 88 and 94%. Currently on 6 L * Continue remdesivir for total of 5 days and dexamethasone for up to 10 days. * Continue ceftriaxone for 5 days total, and azithromycin for 3 days * Increase glargine to 10 units in the morning and 5 units in the evening * Humalog 5 units with each meal and sliding scale * Monitor electrolytes * Strict I's and O's and daily weights * Pharmacy dosing warfarin * CODE STATUS: DNR/DNI * Length of stay greater than 96 hours secondary to COVID-19 treatment with remdesivir. * Patient has a poor prognosis secondary to multiple medical problems including heart disease and diabetes, as well she is on oxygen at home for her CHF and she is 89 years old.
[2020-10-15] MEDS: Furosemide 40 MG/4 ML VIAL IVPUSH SCH ×2 (06:51→12:59)
[2020-10-15] MEDS: Insulin Lispro 100 Units/ML 3 ML Vial SUBCUT SCH ×7 (08:15→21:48)
[2020-10-15] MEDS: Insulin Glarg,Human.Rec.Analog 100 Unit/ML SUBCUT SCH ×2 (08:17→21:55)
[2020-10-15] MEDS: Dexamethasone 4 MG Tab PO SCH (08:18)
[2020-10-15] MEDS: Nystatin Topical Powder 15 GM Bottle TOP SCH ×3 (08:18→21:44)
[2020-10-15] MEDS: Metoprolol Tartrate 25 MG Tab PO SCH ×2 (08:19→20:40)
[2020-10-15] MEDS: Pantoprazole 40 MG Tab.CR PO SCH (08:19)
[2020-10-15] MEDS: Potassium Chloride 20 MEQ Tab.ER PO SCH (08:19)
--- NOTE | 2020-10-15 11:15 | PCM.PN ---
- General Info Date of Service: 10/15/20 Admission Dx/Problem (Free Text): Admission Diagnosis/Problem Admission Diagnosis/Problem Pneumonia - Patient Data Vitals - Most Recent: Last Vital Signs Temp 97.3 F 10/15/20 07:31 Pulse 71 10/15/20 08:19 Resp 28 H 10/15/20 07:31 BP 137/93 H 10/15/20 08:19 Pulse Ox 87 L 10/15/20 07:31 Weight - Most Recent: 220 lb 9.6 oz I&O - Last 24 Hours: Intake & Output 10/14/20 10/15/20 10/15/20 22:59 06:59 14:59 Intake Total 1460 600 Output Total 500 750 500 Balance 960 -150 -500 Lab Results Last 24 Hours: Laboratory Results - last 24 hr 10/14/20 10/14/20 10/14/20 Range/Units 05:32 11:44 16:29 WBC (3.98-10.04) K/mm3 RBC (3.98-5.22) M/mm3 Hgb (11.2-15.7) gm/dl Hct (34.1-44.9) % MCV (79.4-94.8) fl MCH (25.6-32.2) pg MCHC (32.2-35.5) g/dl RDW Std Deviation (36.4-46.3) fL Plt Count (182-369) K/mm3 MPV (9.4-12.3) fl Neut % (Auto) (34.0-71.1) % Lymph % (Auto) (19.3-51.7) % Randall % (Auto) (4.7-12.5) % Eos % (Auto) (0.7-5.8) Baso % (Auto) (0.1-1.2) % Neut # (Auto) (1.56-6.13) K/mm3 Lymph # (Auto) (1.18-3.74) K/mm3 Randall # (Auto) (0.24-0.36) K/mm3 Eos # (Auto) (0.04-0.36) K/mm3 Baso # (Auto) (0.01-0.08) K/mm3 Manual Slide Review PT (9.7-12.0) SECONDS INR D-Dimer, Quantitative (0.19-0.50) mg/L Sodium (136-145) mEq/L Potassium (3.5-5.1) mEq/L Chloride (98-107) mEq/L Carbon Dioxide (21-32) mEq/L Anion Gap (5-15) BUN (7-18) mg/dL Creatinine (0.55-1.02) mg/dL Est Cr Clr Drug Dosing mL/min Estimated GFR (MDRD) (>60) mL/min BUN/Creatinine Ratio (14-18) Glucose (83-115) mg/dL POC Glucose 318 H 391 H (83-110) mg/dL Hemoglobin A1c 7.50 H (4.50-6.20) % Calcium (8.5-10.1) mg/dL Phosphorus (2.6-4.7) mg/dL Magnesium (1.8-2.4) mg/dl Total Bilirubin (0.2-1.0) mg/dL AST (15-37) U/L ALT (14-59) U/L Alkaline Phosphatase (46-116) U/L C-Reactive Protein (<1.0) mg/dL Total Protein (6.4-8.2) g/dl Albumin (3.4-5.0) g/dl Globulin gm/dL Albumin/Globulin Ratio (1-2) 10/14/20 10/15/20 10/15/20 Range/Units 20:07 04:48 04:48 WBC 4.37 (3.98-10.04) K/mm3 RBC 4.89 (3.98-5.22) M/mm3 Hgb 13.6 (11.2-15.7) gm/dl Hct 42.5 (34.1-44.9) % MCV 86.9 (79.4-94.8) fl MCH 27.8 (25.6-32.2) pg MCHC 32.0 L (32.2-35.5) g/dl RDW Std Deviation 45.3 (36.4-46.3) fL Plt Count 262 (182-369) K/mm3 MPV 10.5 (9.4-12.3) fl Neut % (Auto) 72.8 H (34.0-71.1) % Lymph % (Auto) 12.6 L (19.3-51.7) % Randall % (Auto) 13.0 H (4.7-12.5) % Eos % (Auto) 0 L (0.7-5.8) Baso % (Auto) 0.5 (0.1-1.2) % Neut # (Auto) 3.18 (1.56-6.13) K/mm3 Lymph # (Auto) 0.55 L (1.18-3.74) K/mm3 Randall # (Auto) 0.57 H (0.24-0.36) K/mm3 Eos # (Auto) 0.00 L (0.04-0.36) K/mm3 Baso # (Auto) 0.02 (0.01-0.08) K/mm3 Manual Slide Review Normal smear PT 27.4 H (9.7-12.0) SECONDS INR 2.61 D-Dimer, Quantitative (0.19-0.50) mg/L Sodium (136-145) mEq/L Potassium (3.5-5.1) mEq/L Chloride (98-107) mEq/L Carbon Dioxide (21-32) mEq/L Anion Gap (5-15) BUN (7-18) mg/dL Creatinine (0.55-1.02) mg/dL Est Cr Clr Drug Dosing mL/min Estimated GFR (MDRD) (>60) mL/min BUN/Creatinine Ratio (14-18) Glucose (83-115) mg/dL POC Glucose 400 H (83-110) mg/dL Hemoglobin A1c (4.50-6.20) % Calcium (8.5-10.1) mg/dL Phosphorus (2.6-4.7) mg/dL Magnesium (1.8-2.4) mg/dl Total Bilirubin (0.2-1.0) mg/dL AST (15-37) U/L ALT (14-59) U/L Alkaline Phosphatase (46-116) U/L C-Reactive Protein (<1.0) mg/dL Total Protein (6.4-8.2) g/dl Albumin (3.4-5.0) g/dl Globulin gm/dL Albumin/Globulin Ratio (1-2) 10/15/20 10/15/20 10/15/20 Range/Units 04:48 04:48 06:51 WBC (3.98-10.04) K/mm3 RBC (3.98-5.22) M/mm3 Hgb (11.2-15.7) gm/dl Hct (34.1-44.9) % MCV (79.4-94.8) fl MCH (25.6-32.2) pg MCHC (32.2-35.5) g/dl RDW Std Deviation (36.4-46.3) fL Plt Count (182-369) K/mm3 MPV (9.4-12.3) fl Neut % (Auto) (34.0-71.1) % Lymph % (Auto) (19.3-51.7) % Randall % (Auto) (4.7-12.5) % Eos % (Auto) (0.7-5.8) Baso % (Auto) (0.1-1.2) % Neut # (Auto) (1.56-6.13) K/mm3 Lymph # (Auto) (1.18-3.74) K/mm3 Randall # (Auto) (0.24-0.36) K/mm3 Eos # (Auto) (0.04-0.36) K/mm3 Baso # (Auto) (0.01-0.08) K/mm3 Manual Slide Review PT (9.7-12.0) SECONDS INR D-Dimer, Quantitative 1.43 H (0.19-0.50) mg/L Sodium 138 (136-145) mEq/L Potassium 3.8 (3.5-5.1) mEq/L Chloride 99 (98-107) mEq/L Carbon Dioxide 37 H (21-32) mEq/L Anion Gap 5.8 (5-15) BUN 21 H (7-18) mg/dL Creatinine 0.7 (0.55-1.02) mg/dL Est Cr Clr Drug Dosing 47.05 mL/min Estimated GFR (MDRD) > 60 (>60) mL/min BUN/Creatinine Ratio 30.0 H (14-18) Glucose 229 H (83-115) mg/dL POC Glucose 243 H (83-110) mg/dL Hemoglobin A1c (4.50-6.20) % Calcium 8.7 (8.5-10.1) mg/dL Phosphorus 2.7 (2.6-4.7) mg/dL Magnesium 1.9 (1.8-2.4) mg/dl Total Bilirubin 0.4 (0.2-1.0) mg/dL AST 13 L (15-37) U/L ALT 33 (14-59) U/L Alkaline Phosphatase 50 (46-116) U/L C-Reactive Protein 1.4 H* (<1.0) mg/dL Total Protein 6.2 L (6.4-8.2) g/dl Albumin 2.5 L (3.4-5.0) g/dl Globulin 3.7 gm/dL Albumin/Globulin Ratio 0.7 L (1-2) Dexter Results Last 24 Hours: Microbiology 10/10/20 19:31 Aerobic Blood Culture - Preliminary Blood - Venous NO GROWTH AFTER 4 DAYS Anaerobic Blood Culture - Preliminary NO GROWTH AFTER 4 DAYS 10/10/20 18:20 Aerobic Blood Culture - Preliminary Blood - Venous - Lab Draw NO GROWTH AFTER 4 DAYS Anaerobic Blood Culture - Preliminary NO GROWTH AFTER 4 DAYS Med Orders - Current: Current Medications Acetaminophen (Tylenol) 650 mg PO Q4H PRN PRN Reason: Fever Greater Than 101 Dexamethasone (Dexamethasone) 6 mg PO DAILY [facility] Stop: 10/20/20 09:01 Last Admin: 10/15/20 08:18 Dose: 6 mg Documented by: Dextrose/Water (Dextrose 50% In Water) 50 ml IV ASDIRECTED PRN PRN Reason: Hypoglycemia Furosemide (Lasix) 40 mg IVPUSH BIDDIURETIC [facility] Last Admin: 10/15/20 06:51 Dose: 40 mg Documented by: Insulin Glargine (Lantus) 10 unit SUBCUT DAILY [facility] Last Admin: 10/15/20 08:17 Dose: 10 units Documented by: Insulin Glargine (Lantus) 5 unit SUBCUT BEDTIME [facility] Last Admin: 10/14/20 21:28 Dose: 5 units Documented by: Insulin Human Lispro (Humalog) 0 unit SUBCUT QIDACANDBED [facility]; Protocol Last Admin: 10/15/20 08:16 Dose: 4 units Documented by: Insulin Human Lispro (Humalog) 5 unit SUBCUT TIDAC [facility] Last Admin: 10/15/20 08:15 Dose: 5 units Documented by: Metoprolol Tartrate (Lopressor) 25 mg PO BID [facility] Last Admin: 10/15/20 08:19 Dose: 25 mg Documented by: Nitroglycerin (Nitrostat) 0.4 mg SL ASDIRECTED PRN PRN Reason: Chest Pain Nystatin (Nystop) 0 gm TOP TID [facility] Last Admin: 10/15/20 08:18 Dose: 1 dose Documented by: Pantoprazole Sodium (Protonix) 40 mg PO DAILY [facility] Last Admin: 10/15/20 08:19 Dose: 40 mg Documented by: Potassium Chloride (Klor-Con M20) 20 meq PO DAILY [facility] Last Admin: 10/15/20 08:19 Dose: 20 meq Documented by: Simvastatin (Zocor) 20 mg PO BEDTIME [facility] Last Admin: 10/14/20 20:08 Dose: 20 mg Documented by: Sodium Chloride (Saline Flush) 10 ml FLUSH ASDIRECTED PRN PRN Reason: Keep Vein Open Last Admin: 10/10/20 16:51 Dose: 10 ml Documented by: Warfarin Sodium (Pharmacy To Dose - Warfarin) 1 dose .XX ASDIRECTED PRN PRN Reason: RX TO DOSE WARFARIN Warfarin Sodium (Coumadin) 2.5 mg PO QPM [facility] Stop: 10/15/20 18:01 Discontinued Medications Enoxaparin Sodium (Lovenox) 100 mg SUBCUT Q12H [facility] Last Admin: 10/12/20 22:10 Dose: 100 mg Documented by: Furosemide (Lasix) 20 mg IVPUSH BIDDIURETIC [facility] Sodium Chloride (Normal Saline) 1,000 mls @ 1,000 mls/hr IV .BOLUS [facility] Last Admin: 10/10/20 16:50 Dose: 1,000 mls/hr Documented by: Ceftriaxone Sodium 2 gm/ (Sodium Chloride) 100 mls @ 200 mls/hr IV ONETIME ONE Stop: 10/10/20 19:13 Last Admin: 10/10/20 19:43 Dose: 200 mls/hr Documented by: Ceftriaxone Sodium 2 gm/ (Sodium Chloride) 100 mls @ 200 mls/hr IV Q24H [facility] Stop: 10/14/20 19:29 Last Admin: 10/14/20 18:00 Dose: 200 mls/hr Documented by: Azithromycin 500 mg/ Sodium (Chloride) 250 mls @ 250 mls/hr IV Q24H [facility] Stop: 10/12/20 22:59 Last Admin: 10/12/20 22:11 Dose: 250 mls/hr Documented by: Remdesivir 200 mg/ Sodium (Chloride) 250 mls @ 250 mls/hr IV ONETIME ONE Stop: 10/10/20 22:05 Last Admin: 10/11/20 00:07 Dose: 250 mls/hr Documented by: Remdesivir 100 mg/ Sodium (Chloride) 100 mls @ 100 mls/hr IV Q24H [facility] Stop: 10/14/20 21:59 Last Admin: 10/14/20 20:09 Dose: 100 mls/hr Documented by: Magnesium Sulfate 4 gm/ Premix 50 mls @ 12.5 mls/hr IV ONETIME ONE Stop: 10/11/20 13:54 Last Admin: 10/11/20 11:00 Dose: 12.5 mls/hr Documented by: Potassium Chloride 10 meq/ (Premix) 100 mls @ 100 mls/hr IV Q1H [facility] Stop: 10/11/20 13:59 Last Admin: 10/11/20 15:14 Dose: 100 mls/hr Documented by: Insulin Glargine (Lantus) 7 unit SUBCUT DAILY [facility] Last Admin: 10/13/20 10:21 Dose: 7 units Documented by: Insulin Human Lispro (Humalog) 0 unit SUBCUT QIDACANDBED [facility]; Protocol Last Admin: 10/12/20 22:11 Dose: 4 unit Documented by: Insulin Human Regular (Humulin R) Confirm Administered Dose 300 unit .ROUTE .STK-MED ONE Stop: 10/11/20 09:24 Last Admin: 10/11/20 11:22 Dose: Not Given Documented by: Warfarin Sodium (Coumadin) 2.5 mg PO ONETIME ONE Stop: 10/11/20 01:01 Last Admin: 10/11/20 01:57 Dose: 2.5 mg Documented by: Warfarin Sodium (Coumadin) 5 mg PO ONETIME ONE Stop: 10/11/20 18:01 Last Admin: 10/11/20 18:00 Dose: 5 mg Documented by: Warfarin Sodium (Coumadin) 3 mg PO QPM ONE Stop: 10/12/20 18:01 Last Admin: 10/12/20 17:01 Dose: 3 mg Documented by: Warfarin Sodium (Coumadin Sliding Scale) 0 each PO QPM [facility] Stop: 10/13/20 18:01 Last Admin: 10/13/20 17:45 Dose: Not Given Documented by: Warfarin Sodium (Coumadin Sliding Scale) 0 each PO QPM [facility] Stop: 10/14/20 18:01 Last Admin: 10/14/20 17:27 Dose: Not Given Documented by: Sepsis Event Note - Evaluation Sepsis Screening Result: No Definite Risk - Focused Exam Vital Signs: Vital Signs Temp Pulse Resp BP Pulse Ox Pulse Ox 10/15/20 08:19 71 137/93 H 10/15/20 07:31 97.3 F 71 28 H 137/93 H 87 L 10/15/20 05:40 91 L 10/15/20 04:00 94 L 10/15/20 03:56 97.5 F 77 18 147/80 H 10/15/20 00:48 92 L 10/15/20 00:47 97.3 F 87 18 129/79 88 L - Problem List & Annotations (1) Prolonged Q-T interval on ECG SNOMED Code(s): 562405827 Code(s): R94.31 - ABNORMAL ELECTROCARDIOGRAM [ECG] [EKG] Status: Acute Current Visit: Yes (2) COVID-19 SNOMED Code(s): 182319484 Code(s): U07.1 - COVID-19 Status: Acute Current Visit: Yes (3) Pneumonia due to COVID-19 virus SNOMED Code(s): 646850026228805939 Code(s): U07.1 - COVID-19; J12.89 - OTHER VIRAL PNEUMONIA Status: Acute Current Visit: Yes (4) Afib, Atrial fibrillation and flutter SNOMED Code(s): 396302655 Code(s): I48.91 - UNSPECIFIED ATRIAL FIBRILLATION; I48.92 - UNSPECIFIED ATRIAL FLUTTER Status: Chronic Priority: Medium Current Visit: Yes (5) Hypertension SNOMED Code(s): 92325030 Code(s): I10 - ESSENTIAL (PRIMARY) HYPERTENSION Status: Chronic Priority: Medium Current Visit: Yes Qualifiers: Hypertension type: unspecified Qualified Code(s): I10 - Essential (primary) hypertension (6) Pulmonary hypertension SNOMED Code(s): 57732877 Code(s): I27.20 - PULMONARY HYPERTENSION, UNSPECIFIED Status: Chronic Priority: Medium Current Visit: Yes - Problem List Review Problem List Initiated/Reviewed/Updated: Yes - My Orders Last 24 Hours: My Active Orders 10/14/20 12:52 PT Evaluation and Treatment [CONS] Routine 10/14/20 12:53 OT Evaluation and Treatment [CONS] Routine 10/14/20 21:00 Insulin Glarg,Human.Rec.Analog [LantUS] 5 unit SUBCUT BEDTIME 10/15/20 07:00 Insulin Lispro [HumaLOG] 5 unit SUBCUT TIDAC 10/15/20 18:00 Warfarin [Coumadin] 2.5 mg PO QPM 10/16/20 06:00 INR,PT,PROTHROMBIN TIME [COAG] DAILY 10/17/20 06:00 INR,PT,PROTHROMBIN TIME [COAG] DAILY 10/18/20 06:00 INR,PT,PROTHROMBIN TIME [COAG] DAILY 10/19/20 06:00 INR,PT,PROTHROMBIN TIME [COAG] DAILY 10/20/20 06:00 INR,PT,PROTHROMBIN TIME [COAG] DAILY 10/21/20 06:00 INR,PT,PROTHROMBIN TIME [COAG] DAILY 10/22/20 06:00 INR,PT,PROTHROMBIN TIME [COAG] DAILY 10/23/20 06:00 INR,PT,PROTHROMBIN TIME [COAG] DAILY 10/24/20 06:00 INR,PT,PROTHROMBIN TIME [COAG] DAILY 10/25/20 06:00 INR,PT,PROTHROMBIN TIME [COAG] DAILY 10/26/20 06:00 INR,PT,PROTHROMBIN TIME [COAG] DAILY 10/27/20 06:00 INR,PT,PROTHROMBIN TIME [COAG] DAILY - Plan Plan:: Assessment COVID-19 pneumonia * Currently on 4-5 L nasal cannula * Was Covid positive approximately 10 days prior to admission * On dexamethasone, remdesivir, ceftriaxone, and azithromycin Atrial fibrillation * INR increased to 3.25 * Pharmacy dosing warfarin * On metoprolol for rate control CHF/hypertension * Weight and fluid balance are essentially neutral * Requires 2 L/min nasal cannula secondary to CHF at home. * Started on Lasix 40 mg IV twice daily here Diabetes * Blood sugars elevated, into the 300s * Started on Lantus and sliding scale in hospital Hypokalemia, hypophosphatemia, and hypomagnesemiaresolved * Potassium 3.9, phosphorus 2.8, magnesium 2.4, Hypoalbuminemia * albumin 2.3 * Albumin is low and that is concerning with COVID-19 Plan * Keep oxygen saturation between 88 and 94%. Currently on 6 L * Continue remdesivir for total of 5 days and dexamethasone for up to 10 days. * Continue ceftriaxone for 5 days total, and azithromycin for 3 days * Increase glargine to 10 units in the morning and 5 units in the evening * Humalog 5 units with each meal and sliding scale * Monitor electrolytes * Strict I's and O's and daily weights * Pharmacy dosing warfarin * CODE STATUS: DNR/DNI * Length of stay greater than 96 hours secondary to COVID-19 treatment with remdesivir. * Patient has a poor prognosis secondary to multiple medical problems including heart disease and diabetes, as well she is on oxygen at home for her CHF and she is 89 years old.
--- NOTE | 2020-10-15 12:53 | PCM.PN ---
- General Info Date of Service: 10/15/20 Admission Dx/Problem (Free Text): Admission Diagnosis/Problem Admission Diagnosis/Problem Pneumonia Subjective Update: States she feels well. Currently on 5 L of oxygen per nasal cannula. Blood sugars becoming more controlled with insulin adjustments. Functional Status: Reports: Pain Controlled, Tolerating Diet, Ambulating (With therapies), Urinating, Incentive Spirometry (Needs a lot of encouragement.) - Review of Systems General: Reports: No Symptoms HEENT: Reports: Glasses Pulmonary: Reports: Cough. Denies: Sputum, Wheezing Cardiovascular: Reports: No Symptoms Gastrointestinal: Reports: No Symptoms Genitourinary: Reports: No Symptoms Musculoskeletal: Reports: No Symptoms Skin: Reports: No Symptoms Neurological: Reports: No Symptoms Psychiatric: Reports: No Symptoms - Patient Data Vitals - Most Recent: Last Vital Signs Temp 97.3 F 10/15/20 07:31 Pulse 71 10/15/20 08:19 Resp 28 H 10/15/20 07:31 BP 137/93 H 10/15/20 08:19 Pulse Ox 87 L 10/15/20 07:31 Weight - Most Recent: 220 lb 9.6 oz I&O - Last 24 Hours: Intake & Output 10/14/20 10/15/20 10/15/20 22:59 06:59 14:59 Intake Total 1460 600 480 Output Total 500 750 500 Balance 960 -150 -20 Lab Results Last 24 Hours: Laboratory Results - last 24 hr 10/14/20 10/14/20 10/15/20 Range/Units 16:29 20:07 04:48 WBC (3.98-10.04) K/mm3 RBC (3.98-5.22) M/mm3 Hgb (11.2-15.7) gm/dl Hct (34.1-44.9) % MCV (79.4-94.8) fl MCH (25.6-32.2) pg MCHC (32.2-35.5) g/dl RDW Std Deviation (36.4-46.3) fL Plt Count (182-369) K/mm3 MPV (9.4-12.3) fl Neut % (Auto) (34.0-71.1) % Lymph % (Auto) (19.3-51.7) % Russell % (Auto) (4.7-12.5) % Eos % (Auto) (0.7-5.8) Baso % (Auto) (0.1-1.2) % Neut # (Auto) (1.56-6.13) K/mm3 Lymph # (Auto) (1.18-3.74) K/mm3 Russell # (Auto) (0.24-0.36) K/mm3 Eos # (Auto) (0.04-0.36) K/mm3 Baso # (Auto) (0.01-0.08) K/mm3 Manual Slide Review PT 27.4 H (9.7-12.0) SECONDS INR 2.61 D-Dimer, Quantitative (0.19-0.50) mg/L Sodium (136-145) mEq/L Potassium (3.5-5.1) mEq/L Chloride (98-107) mEq/L Carbon Dioxide (21-32) mEq/L Anion Gap (5-15) BUN (7-18) mg/dL Creatinine (0.55-1.02) mg/dL Est Cr Clr Drug Dosing mL/min Estimated GFR (MDRD) (>60) mL/min BUN/Creatinine Ratio (14-18) Glucose (83-115) mg/dL POC Glucose 391 H 400 H (83-110) mg/dL Calcium (8.5-10.1) mg/dL Phosphorus (2.6-4.7) mg/dL Magnesium (1.8-2.4) mg/dl Total Bilirubin (0.2-1.0) mg/dL AST (15-37) U/L ALT (14-59) U/L Alkaline Phosphatase (46-116) U/L C-Reactive Protein (<1.0) mg/dL Total Protein (6.4-8.2) g/dl Albumin (3.4-5.0) g/dl Globulin gm/dL Albumin/Globulin Ratio (1-2) 10/15/20 10/15/20 10/15/20 Range/Units 04:48 04:48 04:48 WBC 4.37 (3.98-10.04) K/mm3 RBC 4.89 (3.98-5.22) M/mm3 Hgb 13.6 (11.2-15.7) gm/dl Hct 42.5 (34.1-44.9) % MCV 86.9 (79.4-94.8) fl MCH 27.8 (25.6-32.2) pg MCHC 32.0 L (32.2-35.5) g/dl RDW Std Deviation 45.3 (36.4-46.3) fL Plt Count 262 (182-369) K/mm3 MPV 10.5 (9.4-12.3) fl Neut % (Auto) 72.8 H (34.0-71.1) % Lymph % (Auto) 12.6 L (19.3-51.7) % Russell % (Auto) 13.0 H (4.7-12.5) % Eos % (Auto) 0 L (0.7-5.8) Baso % (Auto) 0.5 (0.1-1.2) % Neut # (Auto) 3.18 (1.56-6.13) K/mm3 Lymph # (Auto) 0.55 L (1.18-3.74) K/mm3 Russell # (Auto) 0.57 H (0.24-0.36) K/mm3 Eos # (Auto) 0.00 L (0.04-0.36) K/mm3 Baso # (Auto) 0.02 (0.01-0.08) K/mm3 Manual Slide Review Normal smear PT (9.7-12.0) SECONDS INR D-Dimer, Quantitative 1.43 H (0.19-0.50) mg/L Sodium 138 (136-145) mEq/L Potassium 3.8 (3.5-5.1) mEq/L Chloride 99 (98-107) mEq/L Carbon Dioxide 37 H (21-32) mEq/L Anion Gap 5.8 (5-15) BUN 21 H (7-18) mg/dL Creatinine 0.7 (0.55-1.02) mg/dL Est Cr Clr Drug Dosing 47.05 mL/min Estimated GFR (MDRD) > 60 (>60) mL/min BUN/Creatinine Ratio 30.0 H (14-18) Glucose 229 H (83-115) mg/dL POC Glucose (83-110) mg/dL Calcium 8.7 (8.5-10.1) mg/dL Phosphorus 2.7 (2.6-4.7) mg/dL Magnesium 1.9 (1.8-2.4) mg/dl Total Bilirubin 0.4 (0.2-1.0) mg/dL AST 13 L (15-37) U/L ALT 33 (14-59) U/L Alkaline Phosphatase 50 (46-116) U/L C-Reactive Protein 1.4 H* (<1.0) mg/dL Total Protein 6.2 L (6.4-8.2) g/dl Albumin 2.5 L (3.4-5.0) g/dl Globulin 3.7 gm/dL Albumin/Globulin Ratio 0.7 L (1-2) 10/15/20 10/15/20 Range/Units 06:51 11:57 WBC (3.98-10.04) K/mm3 RBC (3.98-5.22) M/mm3 Hgb (11.2-15.7) gm/dl Hct (34.1-44.9) % MCV (79.4-94.8) fl MCH (25.6-32.2) pg MCHC (32.2-35.5) g/dl RDW Std Deviation (36.4-46.3) fL Plt Count (182-369) K/mm3 MPV (9.4-12.3) fl Neut % (Auto) (34.0-71.1) % Lymph % (Auto) (19.3-51.7) % Russell % (Auto) (4.7-12.5) % Eos % (Auto) (0.7-5.8) Baso % (Auto) (0.1-1.2) % Neut # (Auto) (1.56-6.13) K/mm3 Lymph # (Auto) (1.18-3.74) K/mm3 Russell # (Auto) (0.24-0.36) K/mm3 Eos # (Auto) (0.04-0.36) K/mm3 Baso # (Auto) (0.01-0.08) K/mm3 Manual Slide Review PT (9.7-12.0) SECONDS INR D-Dimer, Quantitative (0.19-0.50) mg/L Sodium (136-145) mEq/L Potassium (3.5-5.1) mEq/L Chloride (98-107) mEq/L Carbon Dioxide (21-32) mEq/L Anion Gap (5-15) BUN (7-18) mg/dL Creatinine (0.55-1.02) mg/dL Est Cr Clr Drug Dosing mL/min Estimated GFR (MDRD) (>60) mL/min BUN/Creatinine Ratio (14-18) Glucose (83-115) mg/dL POC Glucose 243 H 249 H (83-110) mg/dL Calcium (8.5-10.1) mg/dL Phosphorus (2.6-4.7) mg/dL Magnesium (1.8-2.4) mg/dl Total Bilirubin (0.2-1.0) mg/dL AST (15-37) U/L ALT (14-59) U/L Alkaline Phosphatase (46-116) U/L C-Reactive Protein (<1.0) mg/dL Total Protein (6.4-8.2) g/dl Albumin (3.4-5.0) g/dl Globulin gm/dL Albumin/Globulin Ratio (1-2) Dexter Results Last 24 Hours: Microbiology 10/10/20 19:31 Aerobic Blood Culture - Preliminary Blood - Venous NO GROWTH AFTER 4 DAYS Anaerobic Blood Culture - Preliminary NO GROWTH AFTER 4 DAYS 10/10/20 18:20 Aerobic Blood Culture - Preliminary Blood - Venous - Lab Draw NO GROWTH AFTER 4 DAYS Anaerobic Blood Culture - Preliminary NO GROWTH AFTER 4 DAYS Med Orders - Current: Current Medications Acetaminophen (Tylenol) 650 mg PO Q4H PRN PRN Reason: Fever Greater Than 101 Dexamethasone (Dexamethasone) 6 mg PO DAILY [facility] Stop: 10/20/20 09:01 Last Admin: 10/15/20 08:18 Dose: 6 mg Documented by: Dextrose/Water (Dextrose 50% In Water) 50 ml IV ASDIRECTED PRN PRN Reason: Hypoglycemia Furosemide (Lasix) 40 mg IVPUSH BIDDIURETIC [facility] Last Admin: 10/15/20 06:51 Dose: 40 mg Documented by: Insulin Glargine (Lantus) 10 unit SUBCUT DAILY [facility] Last Admin: 10/15/20 08:17 Dose: 10 units Documented by: Insulin Glargine (Lantus) 5 unit SUBCUT BEDTIME [facility] Last Admin: 10/14/20 21:28 Dose: 5 units Documented by: Insulin Human Lispro (Humalog) 0 unit SUBCUT QIDACANDBED [facility]; Protocol Last Admin: 10/15/20 08:16 Dose: 4 units Documented by: Insulin Human Lispro (Humalog) 5 unit SUBCUT TIDAC [facility] Last Admin: 10/15/20 08:15 Dose: 5 units Documented by: Metoprolol Tartrate (Lopressor) 25 mg PO BID [facility] Last Admin: 10/15/20 08:19 Dose: 25 mg Documented by: Nitroglycerin (Nitrostat) 0.4 mg SL ASDIRECTED PRN PRN Reason: Chest Pain Nystatin (Nystop) 0 gm TOP TID [facility] Last Admin: 10/15/20 08:18 Dose: 1 dose Documented by: Pantoprazole Sodium (Protonix) 40 mg PO DAILY [facility] Last Admin: 10/15/20 08:19 Dose: 40 mg Documented by: Potassium Chloride (Klor-Con M20) 20 meq PO DAILY [facility] Last Admin: 10/15/20 08:19 Dose: 20 meq Documented by: Simvastatin (Zocor) 20 mg PO BEDTIME [facility] Last Admin: 10/14/20 20:08 Dose: 20 mg Documented by: Sodium Chloride (Saline Flush) 10 ml FLUSH ASDIRECTED PRN PRN Reason: Keep Vein Open Last Admin: 10/10/20 16:51 Dose: 10 ml Documented by: Warfarin Sodium (Pharmacy To Dose - Warfarin) 1 dose .XX ASDIRECTED PRN PRN Reason: RX TO DOSE WARFARIN Warfarin Sodium (Coumadin) 2.5 mg PO QPM [facility] Stop: 10/15/20 18:01 Discontinued Medications Enoxaparin Sodium (Lovenox) 100 mg SUBCUT Q12H [facility] Last Admin: 10/12/20 22:10 Dose: 100 mg Documented by: Furosemide (Lasix) 20 mg IVPUSH BIDDIURETIC [facility] Sodium Chloride (Normal Saline) 1,000 mls @ 1,000 mls/hr IV .BOLUS [facility] Last Admin: 10/10/20 16:50 Dose: 1,000 mls/hr Documented by: Ceftriaxone Sodium 2 gm/ (Sodium Chloride) 100 mls @ 200 mls/hr IV ONETIME ONE Stop: 10/10/20 19:13 Last Admin: 10/10/20 19:43 Dose: 200 mls/hr Documented by: Ceftriaxone Sodium 2 gm/ (Sodium Chloride) 100 mls @ 200 mls/hr IV Q24H [facility] Stop: 10/14/20 19:29 Last Admin: 10/14/20 18:00 Dose: 200 mls/hr Documented by: Azithromycin 500 mg/ Sodium (Chloride) 250 mls @ 250 mls/hr IV Q24H [facility] Stop: 10/12/20 22:59 Last Admin: 10/12/20 22:11 Dose: 250 mls/hr Documented by: Remdesivir 200 mg/ Sodium (Chloride) 250 mls @ 250 mls/hr IV ONETIME ONE Stop: 10/10/20 22:05 Last Admin: 10/11/20 00:07 Dose: 250 mls/hr Documented by: Remdesivir 100 mg/ Sodium (Chloride) 100 mls @ 100 mls/hr IV Q24H [facility] Stop: 10/14/20 21:59 Last Admin: 10/14/20 20:09 Dose: 100 mls/hr Documented by: Magnesium Sulfate 4 gm/ Premix 50 mls @ 12.5 mls/hr IV ONETIME ONE Stop: 10/11/20 13:54 Last Admin: 10/11/20 11:00 Dose: 12.5 mls/hr Documented by: Potassium Chloride 10 meq/ (Premix) 100 mls @ 100 mls/hr IV Q1H [facility] Stop: 10/11/20 13:59 Last Admin: 10/11/20 15:14 Dose: 100 mls/hr Documented by: Insulin Glargine (Lantus) 7 unit SUBCUT DAILY [facility] Last Admin: 10/13/20 10:21 Dose: 7 units Documented by: Insulin Human Lispro (Humalog) 0 unit SUBCUT QIDACANDBED [facility]; Protocol Last Admin: 10/12/20 22:11 Dose: 4 unit Documented by: Insulin Human Regular (Humulin R) Confirm Administered Dose 300 unit .ROUTE .STK-MED ONE Stop: 10/11/20 09:24 Last Admin: 10/11/20 11:22 Dose: Not Given Documented by: Warfarin Sodium (Coumadin) 2.5 mg PO ONETIME ONE Stop: 10/11/20 01:01 Last Admin: 10/11/20 01:57 Dose: 2.5 mg Documented by: Warfarin Sodium (Coumadin) 5 mg PO ONETIME ONE Stop: 10/11/20 18:01 Last Admin: 10/11/20 18:00 Dose: 5 mg Documented by: Warfarin Sodium (Coumadin) 3 mg PO QPM ONE Stop: 10/12/20 18:01 Last Admin: 10/12/20 17:01 Dose: 3 mg Documented by: Warfarin Sodium (Coumadin Sliding Scale) 0 each PO QPM [facility] Stop: 10/13/20 18:01 Last Admin: 10/13/20 17:45 Dose: Not Given Documented by: Warfarin Sodium (Coumadin Sliding Scale) 0 each PO QPM [facility] Stop: 10/14/20 18:01 Last Admin: 10/14/20 17:27 Dose: Not Given Documented by: - Exam Quality Assessment: Supplemental Oxygen (5 L per nasal cannula.), DVT Prophylaxis (Coumadin) General: Alert, Oriented, No Acute Distress HEENT: Pupils Equal, Pupils Reactive, Mucous Membr. Moist/[place] Neck: Supple, Trachea Midline. No: Lymphadenopathy Lungs: Normal Respiratory Effort, Decreased Breath Sounds, Crackles (Right posterior lobe) Cardiovascular: Regular Rate, No Murmurs, Irregular Rhythm (History of atrial fibrillation) GI/Abdominal Exam: Normal Bowel Sounds, Soft, Non-Tender, No Distention (Female) Exam: Deferred Back Exam: Normal Inspection, Full Range of Motion Extremities: Normal Inspection, Normal Range of Motion, Non-Tender, No Pedal Edema, Normal Capillary Refill Peripheral Pulses: 2+: Radial (L), Radial (R), Dorsalis Pedis (L), Dorsalis Pedis (R) Skin: Warm, Dry, Intact Neurological: No New Focal Deficit Psy/Mental Status: Alert, Normal Affect, Normal Mood Sepsis Event Note - Evaluation Sepsis Screening Result: No Definite Risk - Focused Exam Vital Signs: Vital Signs Temp Pulse Resp BP Pulse Ox Pulse Ox 10/15/20 08:19 71 137/93 H 10/15/20 07:31 97.3 F 71 28 H 137/93 H 87 L 10/15/20 05:40 91 L 10/15/20 04:00 94 L 10/15/20 03:56 97.5 F 77 18 147/80 H - Problem List & Annotations (1) COVID-19 SNOMED Code(s): 196264863 Code(s): U07.1 - COVID-19 Status: Acute Priority: High Current Visit: Yes (2) Pneumonia due to COVID-19 virus SNOMED Code(s): 978303223471130241 Code(s): U07.1 - COVID-19; J12.89 - OTHER VIRAL PNEUMONIA Status: Acute Priority: High Current Visit: Yes (3) Afib, Atrial fibrillation and flutter SNOMED Code(s): 157871794 Code(s): I48.91 - UNSPECIFIED ATRIAL FIBRILLATION; I48.92 - UNSPECIFIED ATRIAL FLUTTER Status: Chronic Priority: Medium Current Visit: Yes (4) Hypertension SNOMED Code(s): 19155300 Code(s): I10 - ESSENTIAL (PRIMARY) HYPERTENSION Status: Chronic Priority: Medium Current Visit: Yes Qualifiers: Hypertension type: unspecified Qualified Code(s): I10 - Essential (primary) hypertension (5) Pulmonary hypertension SNOMED Code(s): 56612429 Code(s): I27.20 - PULMONARY HYPERTENSION, UNSPECIFIED Status: Chronic Priority: Medium Current Visit: Yes - Problem List Review Problem List Initiated/Reviewed/Updated: Yes - Assessment Assessment:: 10/15/20 * Currently on 5 L oxygen per nasal cannula. She does wear 2 L of oxygen at home at all times. * No labs today * Weight is down about 3 pounds in the past 24 hours currently receiving 40 mg of Lasix IV twice daily. * Currently on day 5 of dexamethasone * Has completed a 5-day course of remdesivir * Has also been treated with Rocephin 2 g IV x5 days and Zithromax 500 mg IV x3 days to cover pneumonia related to Covid. * Coumadin for DVT prophylaxis. * Has the incentive spirometer and flutter valve at the bedside however the patient states she has not been using that very often. - Plan Plan:: Assessment COVID-19 pneumonia * Currently on 5 L nasal cannula * Was Covid positive approximately 10 days prior to admission * On dexamethasone day 5 * Has completed a 5-day course of remdesivir and ceftriaxone, and 3-day course of azithromycin Atrial fibrillation * Pharmacy dosing warfarin * On metoprolol for rate control CHF/hypertension * Is down about 3 pounds in the past 24 hours. * Requires 2 L/min nasal cannula secondary to CHF at home. * Started on Lasix 40 mg IV twice daily here Diabetes * Blood sugars elevated, into the 300s * Started on Lantus and sliding scale in hospital Hypokalemia, hypophosphatemia, and hypomagnesemiaresolved * Potassium 3.9, phosphorus 2.8, magnesium 2.4, Hypoalbuminemia * albumin 2.3 * Albumin is low and that is concerning with COVID-19 Plan * Keep oxygen saturation between 88 and 94%. Currently on 5 L * Continue dexamethasone for up to 10 days. * Continue to monitor blood sugars. Appears they are more well controlled with changes from yesterday. * Monitor electrolytes * Strict I's and O's and daily weights * Hourly use of incentive spirometer and flutter valve. * PT and OT to evaluate and treat the patient. * Pharmacy dosing warfarin * CODE STATUS: DNR/DNI * Length of stay greater than 96 hours secondary to COVID-19 treatment with remdesivir. * Patient has a poor prognosis secondary to multiple medical problems including heart disease and diabetes, as well she is on oxygen at home for her CHF and she is 89 years old.
[2020-10-15] MEDS ORDERED: Warfarin 2.5 MG Tab PO SCH (18:00)
[2020-10-15] MEDS: Simvastatin 20 MG Tab PO SCH (20:40)
[2020-10-16] MEDS: Furosemide 40 MG/4 ML VIAL IVPUSH SCH ×2 (06:48→17:30)
[2020-10-16] MEDS: Insulin Lispro 100 Units/ML 3 ML Vial SUBCUT SCH ×7 (08:20→22:55)
[2020-10-16] MEDS: Insulin Glarg,Human.Rec.Analog 100 Unit/ML SUBCUT SCH ×2 (08:22→20:49)
[2020-10-16] MEDS: Dexamethasone 4 MG Tab PO SCH (08:23)
[2020-10-16] MEDS: Metoprolol Tartrate 25 MG Tab PO SCH ×2 (08:23→20:49)
[2020-10-16] MEDS: Potassium Chloride 20 MEQ Tab.ER PO SCH (08:23)
[2020-10-16] MEDS: Nystatin Topical Powder 15 GM Bottle TOP SCH ×3 (09:00→20:50)
[2020-10-16] MEDS: Pantoprazole 40 MG Tab.CR PO SCH (13:03)
--- NOTE | 2020-10-16 13:30 | PCM.PN ---
- General Info Date of Service: 10/16/20 Admission Dx/Problem (Free Text): Covid Subjective Update: States she feels well. Currently on 3 L of oxygen per nasal cannula. Functional Status: Reports: Pain Controlled, Tolerating Diet, Ambulating (With physical therapy), Urinating, Incentive Spirometry (Needs a lot of encouragement) - Review of Systems General: Reports: No Symptoms HEENT: Reports: No Symptoms, Glasses Pulmonary: Reports: Cough. Denies: Sputum Cardiovascular: Reports: No Symptoms Gastrointestinal: Reports: No Symptoms Genitourinary: Reports: No Symptoms Musculoskeletal: Reports: No Symptoms Skin: Reports: No Symptoms Neurological: Reports: No Symptoms Psychiatric: Reports: No Symptoms - Patient Data Vitals - Most Recent: Last Vital Signs Temp 97.9 F 10/16/20 12:06 Pulse 80 10/16/20 12:06 Resp 24 H 10/16/20 12:06 BP 122/95 H 10/16/20 12:06 Pulse Ox 88 L 10/16/20 12:06 Weight - Most Recent: 217 lb 9.6 oz I&O - Last 24 Hours: Intake & Output 10/15/20 10/16/20 10/16/20 22:59 06:59 14:59 Intake Total 900 500 400 Output Total 2025 530 Balance -1125 -30 400 Lab Results Last 24 Hours: Laboratory Results - last 24 hr 10/15/20 10/15/20 10/16/20 Range/Units 16:51 20:34 05:30 PT 25.4 H (9.7-12.0) SECONDS INR 2.42 POC Glucose 307 H 341 H (83-110) mg/dL 10/16/20 10/16/20 Range/Units 06:49 11:39 PT (9.7-12.0) SECONDS INR POC Glucose 222 H 229 H (83-110) mg/dL Dexter Results Last 24 Hours: Microbiology 10/10/20 19:31 Aerobic Blood Culture - Preliminary Blood - Venous NO GROWTH AFTER 5 DAYS Anaerobic Blood Culture - Preliminary NO GROWTH AFTER 5 DAYS 10/10/20 18:20 Aerobic Blood Culture - Preliminary Blood - Venous - Lab Draw NO GROWTH AFTER 5 DAYS Anaerobic Blood Culture - Preliminary NO GROWTH AFTER 5 DAYS Med Orders - Current: Current Medications Acetaminophen (Tylenol) 650 mg PO Q4H PRN PRN Reason: Fever Greater Than 101 Dexamethasone (Dexamethasone) 6 mg PO DAILY [facility] Stop: 10/20/20 09:01 Last Admin: 10/16/20 08:23 Dose: 6 mg Documented by: Dextrose/Water (Dextrose 50% In Water) 50 ml IV ASDIRECTED PRN PRN Reason: Hypoglycemia Furosemide (Lasix) 40 mg IVPUSH BIDDIURETIC [facility] Last Admin: 10/16/20 06:48 Dose: 40 mg Documented by: Insulin Glargine (Lantus) 10 unit SUBCUT DAILY [facility] Last Admin: 10/16/20 08:22 Dose: 10 units Documented by: Insulin Glargine (Lantus) 5 unit SUBCUT BEDTIME [facility] Last Admin: 10/15/20 21:55 Dose: 5 units Documented by: Insulin Human Lispro (Humalog) 0 unit SUBCUT QIDACANDBED [facility]; Protocol Last Admin: 10/16/20 13:00 Dose: 6 units Documented by: Insulin Human Lispro (Humalog) 5 unit SUBCUT TIDAC [facility] Last Admin: 10/16/20 13:01 Dose: 5 units Documented by: Metoprolol Tartrate (Lopressor) 25 mg PO BID [facility] Last Admin: 10/16/20 08:23 Dose: 25 mg Documented by: Nitroglycerin (Nitrostat) 0.4 mg SL ASDIRECTED PRN PRN Reason: Chest Pain Nystatin (Nystop) 0 gm TOP TID [facility] Last Admin: 10/16/20 09:00 Dose: 1 dose Documented by: Pantoprazole Sodium (Protonix) 40 mg PO DAILY [facility] Last Admin: 10/16/20 13:03 Dose: 40 mg Documented by: Potassium Chloride (Klor-Con M20) 20 meq PO DAILY [facility] Last Admin: 10/16/20 08:23 Dose: 20 meq Documented by: Simvastatin (Zocor) 20 mg PO BEDTIME [facility] Last Admin: 10/15/20 20:40 Dose: 20 mg Documented by: Sodium Chloride (Saline Flush) 10 ml FLUSH ASDIRECTED PRN PRN Reason: Keep Vein Open Last Admin: 10/10/20 16:51 Dose: 10 ml Documented by: Warfarin Sodium (Pharmacy To Dose - Warfarin) 1 dose .XX ASDIRECTED PRN PRN Reason: RX TO DOSE WARFARIN Warfarin Sodium (Coumadin) 2.5 mg PO QPM [facility] Stop: 10/16/20 18:01 Discontinued Medications Enoxaparin Sodium (Lovenox) 100 mg SUBCUT Q12H [facility] Last Admin: 10/12/20 22:10 Dose: 100 mg Documented by: Furosemide (Lasix) 20 mg IVPUSH BIDDIURETIC [facility] Sodium Chloride (Normal Saline) 1,000 mls @ 1,000 mls/hr IV .BOLUS [facility] Last Admin: 10/10/20 16:50 Dose: 1,000 mls/hr Documented by: Ceftriaxone Sodium 2 gm/ (Sodium Chloride) 100 mls @ 200 mls/hr IV ONETIME ONE Stop: 10/10/20 19:13 Last Admin: 10/10/20 19:43 Dose: 200 mls/hr Documented by: Ceftriaxone Sodium 2 gm/ (Sodium Chloride) 100 mls @ 200 mls/hr IV Q24H [facility] Stop: 10/14/20 19:29 Last Admin: 10/14/20 18:00 Dose: 200 mls/hr Documented by: Azithromycin 500 mg/ Sodium (Chloride) 250 mls @ 250 mls/hr IV Q24H [facility] Stop: 10/12/20 22:59 Last Admin: 10/12/20 22:11 Dose: 250 mls/hr Documented by: Remdesivir 200 mg/ Sodium (Chloride) 250 mls @ 250 mls/hr IV ONETIME ONE Stop: 10/10/20 22:05 Last Admin: 10/11/20 00:07 Dose: 250 mls/hr Documented by: Remdesivir 100 mg/ Sodium (Chloride) 100 mls @ 100 mls/hr IV Q24H [facility] Stop: 10/14/20 21:59 Last Admin: 10/14/20 20:09 Dose: 100 mls/hr Documented by: Magnesium Sulfate 4 gm/ Premix 50 mls @ 12.5 mls/hr IV ONETIME ONE Stop: 10/11/20 13:54 Last Admin: 10/11/20 11:00 Dose: 12.5 mls/hr Documented by: Potassium Chloride 10 meq/ (Premix) 100 mls @ 100 mls/hr IV Q1H [facility] Stop: 10/11/20 13:59 Last Admin: 10/11/20 15:14 Dose: 100 mls/hr Documented by: Insulin Glargine (Lantus) 7 unit SUBCUT DAILY [facility] Last Admin: 10/13/20 10:21 Dose: 7 units Documented by: Insulin Human Lispro (Humalog) 0 unit SUBCUT QIDACANDBED [facility]; Protocol Last Admin: 10/12/20 22:11 Dose: 4 unit Documented by: Insulin Human Regular (Humulin R) Confirm Administered Dose 300 unit .ROUTE .STK-MED ONE Stop: 10/11/20 09:24 Last Admin: 10/11/20 11:22 Dose: Not Given Documented by: Warfarin Sodium (Coumadin) 2.5 mg PO ONETIME ONE Stop: 10/11/20 01:01 Last Admin: 10/11/20 01:57 Dose: 2.5 mg Documented by: Warfarin Sodium (Coumadin) 5 mg PO ONETIME ONE Stop: 10/11/20 18:01 Last Admin: 10/11/20 18:00 Dose: 5 mg Documented by: Warfarin Sodium (Coumadin) 3 mg PO QPM ONE Stop: 10/12/20 18:01 Last Admin: 10/12/20 17:01 Dose: 3 mg Documented by: Warfarin Sodium (Coumadin Sliding Scale) 0 each PO QPM [facility] Stop: 10/13/20 18:01 Last Admin: 10/13/20 17:45 Dose: Not Given Documented by: Warfarin Sodium (Coumadin Sliding Scale) 0 each PO QPM [facility] Stop: 10/14/20 18:01 Last Admin: 10/14/20 17:27 Dose: Not Given Documented by: Warfarin Sodium (Coumadin) 2.5 mg PO QPM [facility] Stop: 10/15/20 18:01 Last Admin: 10/15/20 17:13 Dose: 2.5 mg Documented by: - Exam Quality Assessment: Supplemental Oxygen (3 L per nasal cannula), DVT Prophylaxis (Coumadinpharmacy is dosing) General: Alert, Oriented, Cooperative, No Acute Distress HEENT: Pupils Equal, Pupils Reactive, Mucous Membr. Moist/[place] Neck: Supple, Trachea Midline. No: Lymphadenopathy Lungs: Decreased Breath Sounds, Crackles (Bilateral bases) Cardiovascular: Regular Rate, Irregular Rhythm GI/Abdominal Exam: Normal Bowel Sounds, Soft, Non-Tender, No Distention (Female) Exam: Deferred Back Exam: Normal Inspection, Full Range of Motion Extremities: Normal Inspection, Normal Range of Motion, Non-Tender, No Pedal Edema, Normal Capillary Refill Peripheral Pulses: 1+: Dorsalis Pedis (L), Dorsalis Pedis (R), 2+: Radial (L), Radial (R) Skin: Warm, Dry, Intact Neurological: No New Focal Deficit Psy/Mental Status: Alert, Normal Affect, Normal Mood Sepsis Event Note - Evaluation Sepsis Screening Result: No Definite Risk - Focused Exam Vital Signs: Vital Signs Temp Pulse Resp BP Pulse Ox Pulse Ox 10/16/20 12:06 97.9 F 80 24 H 122/95 H 88 L 10/16/20 09:16 92 L 10/16/20 08:46 95 10/16/20 08:23 77 112/53 L 10/16/20 07:59 98.2 F 77 16 112/53 L 91 L 10/16/20 05:24 98 10/16/20 04:44 97.5 F 81 16 134/72 90 L - Problem List & Annotations (1) COVID-19 SNOMED Code(s): 670790907 Code(s): U07.1 - COVID-19 Status: Acute Priority: High Current Visit: Y es (2) Pneumonia due to COVID-19 virus SNOMED Code(s): 397005643152601307 Code(s): U07.1 - COVID-19; J12.89 - OTHER VIRAL PNEUMONIA Status: Acute Priority: High Current Visit: Yes (3) Afib, Atrial fibrillation and flutter SNOMED Code(s): 717507873 Code(s): I48.91 - UNSPECIFIED ATRIAL FIBRILLATION; I48.92 - UNSPECIFIED ATRIAL FLUTTER Status: Chronic Priority: Medium Current Visit: Yes (4) Hypertension SNOMED Code(s): 52761673 Code(s): I10 - ESSENTIAL (PRIMARY) HYPERTENSION Status: Chronic Priority: Medium Current Visit: Yes Qualifiers: Hypertension type: unspecified Qualified Code(s): I10 - Essential (primary) hypertension (5) Pulmonary hypertension SNOMED Code(s): 47825236 Code(s): I27.20 - PULMONARY HYPERTENSION, UNSPECIFIED Status: Chronic Priority: Medium Current Visit: Yes - Problem List Review Problem List Initiated/Reviewed/Updated: Yes - Assessment Assessment:: 10/15/20 * Currently on 5 L oxygen per nasal cannula. She does wear 2 L of oxygen at home at all times. * No labs today * Weight is down about 3 pounds in the past 24 hours currently receiving 40 mg of Lasix IV twice daily. * Currently on day 5 of dexamethasone * Has completed a 5-day course of remdesivir * Has also been treated with Rocephin 2 g IV x5 days and Zithromax 500 mg IV x3 days to cover pneumonia related to Covid. * Coumadin for DVT prophylaxis. * Has the incentive spirometer and flutter valve at the bedside however the patient states she has not been using that very often. 10/16/20 * Currently on a 3 L of oxygen per nasal cannula: She wears 2 L at home. * No labs today * Weight is down another 3 pounds in the past 24 hours. She is -1175 mL. * Day 6 of dexamethasone. * Coumadin for DVT prophylaxis. * Incentive spirometer and flutter valve * Patient's blood sugars remain high in the mid to upper 200 range. I have increased her sliding scale insulin dose to the high-dose. - Plan Plan:: 10/16/20 Plan * Keep oxygen saturation between 88 and 94%. Currently on 3 L * Continue dexamethasone for up to 10 days. * Continue to monitor blood sugars. Increase sliding scale to high-dose * Monitor electrolytes * Strict I's and O's and daily weights * Hourly use of incentive spirometer and flutter valve. * PT and OT to evaluate and treat the patient. * Pharmacy dosing warfarin * CODE STATUS: DNR/DNI * Length of stay greater than 96 hours secondary to COVID-19 treatment with remdesivir. * Patient has a poor prognosis secondary to multiple medical problems including heart disease and diabetes, as well she is on oxygen at home for her CHF and she is 89 years old.
[2020-10-16] MEDS ORDERED: Furosemide 40 MG/4 ML VIAL IVPUSH ONE (16:45)
[2020-10-16] MEDS ORDERED: Warfarin 2.5 MG Tab PO SCH (18:00)
[2020-10-16] MEDS: Simvastatin 20 MG Tab PO SCH (20:49)
[2020-10-17] MEDS: Furosemide 40 MG/4 ML VIAL IVPUSH SCH ×3 (08:00→14:03)
[2020-10-17] MEDS: Dexamethasone 4 MG Tab PO SCH (09:09)
[2020-10-17] MEDS: Insulin Glarg,Human.Rec.Analog 100 Unit/ML SUBCUT SCH ×2 (09:10→22:16)
[2020-10-17] MEDS: Metoprolol Tartrate 25 MG Tab PO SCH ×2 (09:11→22:17)
[2020-10-17] MEDS: Potassium Chloride 20 MEQ Tab.ER PO SCH (09:11)
[2020-10-17] MEDS: Insulin Lispro 100 Units/ML 3 ML Vial SUBCUT SCH ×7 (09:12→22:17)
[2020-10-17] MEDS: Pantoprazole 40 MG Tab.CR PO SCH (09:12)
[2020-10-17] MEDS: Nystatin Topical Powder 15 GM Bottle TOP SCH ×3 (09:12→22:15)
--- NOTE | 2020-10-17 10:36 | CR ---
PROCEDURE INFORMATION: Exam: XR Chest, 1 View Exam date and time: 10/17/2020 9:32 AM Age: 89 years old Clinical indication: Shortness of breath TECHNIQUE: Imaging protocol: XR of the chest Views: 1 view. COMPARISON: OT Chest 1V Frontal 10/10/2020 4:19 PM FINDINGS: Lungs: Unchanged consolidation along the left lung base. The upper lungs are clear but hyperlucent. Pleural space: Unchanged mild left costophrenic angle blunting. Heart/Mediastinum: Normal heart and cardiomediastinal silhouette. Vasculature: Decreased venous caliber, now normal. The vascular pedicle with is also decreased, also now normal. Bones/joints: Intact. IMPRESSION: 1. Resolved acute pulmonary edema. 2. Unchanged small left effusion and left lower lobe infiltrate. Thank you for allowing us to participate in the care of your patient. Dictated and Authenticated by: Hemal Medina MD 10/17/2020 11:10 AM Central Time ([place] & [place]) [place]
--- NOTE | 2020-10-17 14:44 | PCM.PN ---
- General Info Date of Service: 10/17/20 Admission Dx/Problem (Free Text): Covid Subjective Update: Patient reports feeling well. She is still on 3 L of oxygen per nasal cannula. Functional Status: Reports: Pain Controlled, Tolerating Diet, Ambulating (With physical therapy), Urinating, Incentive Spirometry (Patient needs a lot of encouragement to use this.) - Review of Systems General: Reports: No Symptoms HEENT: Reports: Glasses Pulmonary: Reports: Cough. Denies: Sputum Cardiovascular: Reports: No Symptoms Gastrointestinal: Reports: No Symptoms Genitourinary: Reports: No Symptoms Musculoskeletal: Reports: No Symptoms Skin: Reports: No Symptoms Neurological: Reports: No Symptoms Psychiatric: Reports: No Symptoms - Patient Data Vitals - Most Recent: Last Vital Signs Temp 97.3 F 10/17/20 11:49 Pulse 63 10/17/20 11:49 Resp 22 H 10/17/20 07:56 BP 129/77 10/17/20 11:49 Pulse Ox 88 L 10/17/20 11:49 Weight - Most Recent: 215 lb 11.2 oz I&O - Last 24 Hours: Intake & Output 10/16/20 10/17/20 10/17/20 22:59 06:59 14:59 Intake Total 660 200 240 Output Total 1100 1150 Balance -440 -950 240 Lab Results Last 24 Hours: Laboratory Results - last 24 hr 10/16/20 10/16/20 10/17/20 Range/Units 17:04 22:50 06:03 WBC (3.98-10.04) K/mm3 RBC (3.98-5.22) M/mm3 Hgb (11.2-15.7) gm/dl Hct (34.1-44.9) % MCV (79.4-94.8) fl MCH (25.6-32.2) pg MCHC (32.2-35.5) g/dl RDW Std Deviation (36.4-46.3) fL Plt Count (182-369) K/mm3 MPV (9.4-12.3) fl Neut % (Auto) (34.0-71.1) % Lymph % (Auto) (19.3-51.7) % [place] % (Auto) (4.7-12.5) % Eos % (Auto) (0.7-5.8) Baso % (Auto) (0.1-1.2) % Neut # (Auto) (1.56-6.13) K/mm3 Lymph # (Auto) (1.18-3.74) K/mm3 [place] # (Auto) (0.24-0.36) K/mm3 Eos # (Auto) (0.04-0.36) K/mm3 Baso # (Auto) (0.01-0.08) K/mm3 Manual Slide Review PT 30.5 H (9.7-12.0) SECONDS INR 2.91 D-Dimer, Quantitative (0.19-0.50) mg/L Sodium (136-145) mEq/L Potassium (3.5-5.1) mEq/L Chloride (98-107) mEq/L Carbon Dioxide (21-32) mEq/L Anion Gap (5-15) BUN (7-18) mg/dL Creatinine (0.55-1.02) mg/dL Est Cr Clr Drug Dosing mL/min Estimated GFR (MDRD) (>60) mL/min BUN/Creatinine Ratio (14-18) Glucose (83-115) mg/dL POC Glucose 319 H 257 H (83-110) mg/dL Calcium (8.5-10.1) mg/dL Total Bilirubin (0.2-1.0) mg/dL AST (15-37) U/L ALT (14-59) U/L Alkaline Phosphatase (46-116) U/L C-Reactive Protein (<1.0) mg/dL Total Protein (6.4-8.2) g/dl Albumin (3.4-5.0) g/dl Globulin gm/dL Albumin/Globulin Ratio (1-2) 10/17/20 10/17/20 10/17/20 Range/Units 06:03 06:03 06:03 WBC 6.59 (3.98-10.04) K/mm3 RBC 5.18 (3.98-5.22) M/mm3 Hgb 14.2 (11.2-15.7) gm/dl Hct 44.8 (34.1-44.9) % MCV 86.5 (79.4-94.8) fl MCH 27.4 (25.6-32.2) pg MCHC 31.7 L (32.2-35.5) g/dl RDW Std Deviation 45.2 (36.4-46.3) fL Plt Count 323 (182-369) K/mm3 MPV 10.4 (9.4-12.3) fl Neut % (Auto) 76.8 H (34.0-71.1) % Lymph % (Auto) 10.0 L (19.3-51.7) % [place] % (Auto) 11.2 (4.7-12.5) % Eos % (Auto) 0.2 L (0.7-5.8) Baso % (Auto) 0.3 (0.1-1.2) % Neut # (Auto) 5.06 (1.56-6.13) K/mm3 Lymph # (Auto) 0.66 L (1.18-3.74) K/mm3 [place] # (Auto) 0.74 H (0.24-0.36) K/mm3 Eos # (Auto) 0.01 L (0.04-0.36) K/mm3 Baso # (Auto) 0.02 (0.01-0.08) K/mm3 Manual Slide Review Abnormal smear PT (9.7-12.0) SECONDS INR D-Dimer, Quantitative 1.33 H (0.19-0.50) mg/L Sodium (136-145) mEq/L Potassium (3.5-5.1) mEq/L Chloride (98-107) mEq/L Carbon Dioxide (21-32) mEq/L Anion Gap (5-15) BUN (7-18) mg/dL Creatinine (0.55-1.02) mg/dL Est Cr Clr Drug Dosing mL/min Estimated GFR (MDRD) (>60) mL/min BUN/Creatinine Ratio (14-18) Glucose (83-115) mg/dL POC Glucose (83-110) mg/dL Calcium (8.5-10.1) mg/dL Total Bilirubin (0.2-1.0) mg/dL AST (15-37) U/L ALT (14-59) U/L Alkaline Phosphatase (46-116) U/L C-Reactive Protein 0.4 (<1.0) mg/dL Total Protein (6.4-8.2) g/dl Albumin (3.4-5.0) g/dl Globulin gm/dL Albumin/Globulin Ratio (1-2) 10/17/20 10/17/20 10/17/20 Range/Units 06:03 06:18 11:46 WBC (3.98-10.04) K/mm3 RBC (3.98-5.22) M/mm3 Hgb (11.2-15.7) gm/dl Hct (34.1-44.9) % MCV (79.4-94.8) fl MCH (25.6-32.2) pg MCHC (32.2-35.5) g/dl RDW Std Deviation (36.4-46.3) fL Plt Count (182-369) K/mm3 MPV (9.4-12.3) fl Neut % (Auto) (34.0-71.1) % Lymph % (Auto) (19.3-51.7) % [place] % (Auto) (4.7-12.5) % Eos % (Auto) (0.7-5.8) Baso % (Auto) (0.1-1.2) % Neut # (Auto) (1.56-6.13) K/mm3 Lymph # (Auto) (1.18-3.74) K/mm3 [place] # (Auto) (0.24-0.36) K/mm3 Eos # (Auto) (0.04-0.36) K/mm3 Baso # (Auto) (0.01-0.08) K/mm3 Manual Slide Review PT (9.7-12.0) SECONDS INR D-Dimer, Quantitative (0.19-0.50) mg/L Sodium 137 (136-145) mEq/L Potassium 3.8 (3.5-5.1) mEq/L Chloride 98 (98-107) mEq/L Carbon Dioxide 36 H (21-32) mEq/L Anion Gap 6.8 (5-15) BUN 24 H (7-18) mg/dL Creatinine 0.8 (0.55-1.02) mg/dL Est Cr Clr Drug Dosing 41.17 mL/min Estimated GFR (MDRD) > 60 (>60) mL/min BUN/Creatinine Ratio 30.0 H (14-18) Glucose 169 H (83-115) mg/dL POC Glucose 171 H 190 H (83-110) mg/dL Calcium 8.9 (8.5-10.1) mg/dL Total Bilirubin 0.6 (0.2-1.0) mg/dL AST 13 L (15-37) U/L ALT 39 (14-59) U/L Alkaline Phosphatase 49 (46-116) U/L C-Reactive Protein (<1.0) mg/dL Total Protein 6.1 L (6.4-8.2) g/dl Albumin 2.5 L (3.4-5.0) g/dl Globulin 3.6 gm/dL Albumin/Globulin Ratio 0.7 L (1-2) Dexter Results Last 24 Hours: Microbiology 10/10/20 19:31 Aerobic Blood Culture - Preliminary Blood - Venous NO GROWTH AFTER 6 DAYS Anaerobic Blood Culture - Preliminary NO GROWTH AFTER 6 DAYS 10/10/20 18:20 Aerobic Blood Culture - Preliminary Blood - Venous - Lab Draw NO GROWTH AFTER 6 DAYS Anaerobic Blood Culture - Preliminary NO GROWTH AFTER 6 DAYS Med Orders - Current: Current Medications Acetaminophen (Tylenol) 650 mg PO Q4H PRN PRN Reason: Fever Greater Than 101 Dexamethasone (Dexamethasone) 6 mg PO DAILY [facility] Stop: 10/20/20 09:01 Last Admin: 10/17/20 09:09 Dose: 6 mg Documented by: Dextrose/Water (Dextrose 50% In Water) 50 ml IV ASDIRECTED PRN PRN Reason: Hypoglycemia Furosemide (Lasix) 40 mg IVPUSH BIDDIURETIC [facility] Last Admin: 10/17/20 14:03 Dose: 40 mg Documented by: Insulin Glargine (Lantus) 10 unit SUBCUT DAILY [facility] Last Admin: 10/17/20 09:10 Dose: 10 units Documented by: Insulin Glargine (Lantus) 5 unit SUBCUT BEDTIME [facility] Last Admin: 10/16/20 20:49 Dose: 5 units Documented by: Insulin Human Lispro (Humalog) 0 unit SUBCUT QIDACANDBED [facility]; Protocol Last Admin: 10/17/20 11:59 Dose: 3 units Documented by: Insulin Human Lispro (Humalog) 5 unit SUBCUT TIDAC [facility] Last Admin: 10/17/20 11:58 Dose: 5 units Documented by: Metoprolol Tartrate (Lopressor) 25 mg PO BID [facility] Last Admin: 10/17/20 09:11 Dose: 25 mg Documented by: Nitroglycerin (Nitrostat) 0.4 mg SL ASDIRECTED PRN PRN Reason: Chest Pain Nystatin (Nystop) 0 gm TOP TID [facility] Last Admin: 10/17/20 14:03 Dose: 14 dose Documented by: Pantoprazole Sodium (Protonix) 40 mg PO DAILY [facility] Last Admin: 10/17/20 09:12 Dose: 40 mg Documented by: Potassium Chloride (Klor-Con M20) 20 meq PO DAILY [facility] Last Admin: 10/17/20 09:11 Dose: 20 meq Documented by: Simvastatin (Zocor) 20 mg PO BEDTIME [facility] Last Admin: 10/16/20 20:49 Dose: 20 mg Documented by: Sodium Chloride (Saline Flush) 10 ml FLUSH ASDIRECTED PRN PRN Reason: Keep Vein Open Last Admin: 10/10/20 16:51 Dose: 10 ml Documented by: Warfarin Sodium (Pharmacy To Dose - Warfarin) 1 dose .XX ASDIRECTED PRN PRN Reason: RX TO DOSE WARFARIN Warfarin Sodium (Coumadin) 1 mg PO QPM [facility] Stop: 10/17/20 18:01 Discontinued Medications Enoxaparin Sodium (Lovenox) 100 mg SUBCUT Q12H [facility] Last Admin: 10/12/20 22:10 Dose: 100 mg Documented by: Furosemide (Lasix) 20 mg IVPUSH BIDDIURETIC [facility] Furosemide (Lasix) 40 mg IVPUSH BIDDIURETIC [facility] Last Admin: 10/17/20 08:00 Dose: Not Given Documented by: Furosemide (Lasix) 40 mg IVPUSH ONETIME ONE Stop: 10/16/20 16:46 Last Admin: 10/16/20 16:51 Dose: 40 mg Documented by: Sodium Chloride (Normal Saline) 1,000 mls @ 1,000 mls/hr IV .BOLUS [facility] Last Admin: 10/10/20 16:50 Dose: 1,000 mls/hr Documented by: Ceftriaxone Sodium 2 gm/ (Sodium Chloride) 100 mls @ 200 mls/hr IV ONETIME ONE Stop: 10/10/20 19:13 Last Admin: 10/10/20 19:43 Dose: 200 mls/hr Documented by: Ceftriaxone Sodium 2 gm/ (Sodium Chloride) 100 mls @ 200 mls/hr IV Q24H [facility] Stop: 10/14/20 19:29 Last Admin: 10/14/20 18:00 Dose: 200 mls/hr Documented by: Azithromycin 500 mg/ Sodium (Chloride) 250 mls @ 250 mls/hr IV Q24H [facility] Stop: 10/12/20 22:59 Last Admin: 10/12/20 22:11 Dose: 250 mls/hr Documented by: Remdesivir 200 mg/ Sodium (Chloride) 250 mls @ 250 mls/hr IV ONETIME ONE Stop: 10/10/20 22:05 Last Admin: 10/11/20 00:07 Dose: 250 mls/hr Documented by: Remdesivir 100 mg/ Sodium (Chloride) 100 mls @ 100 mls/hr IV Q24H [facility] Stop: 10/14/20 21:59 Last Admin: 10/14/20 20:09 Dose: 100 mls/hr Documented by: Magnesium Sulfate 4 gm/ Premix 50 mls @ 12.5 mls/hr IV ONETIME ONE Stop: 10/11/20 13:54 Last Admin: 10/11/20 11:00 Dose: 12.5 mls/hr Documented by: Potassium Chloride 10 meq/ (Premix) 100 mls @ 100 mls/hr IV Q1H [facility] Stop: 10/11/20 13:59 Last Admin: 10/11/20 15:14 Dose: 100 mls/hr Documented by: Insulin Glargine (Lantus) 7 unit SUBCUT DAILY [facility] Last Admin: 10/13/20 10:21 Dose: 7 units Documented by: Insulin Human Lispro (Humalog) 0 unit SUBCUT QIDACANDBED [facility]; Protocol Last Admin: 10/12/20 22:11 Dose: 4 unit Documented by: Insulin Human Regular (Humulin R) Confirm Administered Dose 300 unit .ROUTE .STK-MED ONE Stop: 10/11/20 09:24 Last Admin: 10/11/20 11:22 Dose: Not Given Documented by: Warfarin Sodium (Coumadin) 2.5 mg PO ONETIME ONE Stop: 10/11/20 01:01 Last Admin: 10/11/20 01:57 Dose: 2.5 mg Documented by: Warfarin Sodium (Coumadin) 5 mg PO ONETIME ONE Stop: 10/11/20 18:01 Last Admin: 10/11/20 18:00 Dose: 5 mg Documented by: Warfarin Sodium (Coumadin) 3 mg PO QPM ONE Stop: 10/12/20 18:01 Last Admin: 10/12/20 17:01 Dose: 3 mg Documented by: Warfarin Sodium (Coumadin Sliding Scale) 0 each PO QPM [facility] Stop: 10/13/20 18:01 Last Admin: 10/13/20 17:45 Dose: Not Given Documented by: Warfarin Sodium (Coumadin Sliding Scale) 0 each PO QPM [facility] Stop: 10/14/20 18:01 Last Admin: 10/14/20 17:27 Dose: Not Given Documented by: Warfarin Sodium (Coumadin) 2.5 mg PO QPM [facility] Stop: 10/15/20 18:01 Last Admin: 10/15/20 17:13 Dose: 2.5 mg Documented by: Warfarin Sodium (Coumadin) 2.5 mg PO QPM [facility] Stop: 10/16/20 18:01 Last Admin: 10/16/20 17:41 Dose: 2.5 mg Documented by: - Exam Quality Assessment: Supplemental Oxygen (3 L per nasal cannula), DVT Prophylaxis (Coumadin) General: Alert, Oriented, Cooperative, No Acute Distress HEENT: Pupils Equal, Pupils Reactive, Mucous Membr. Moist/[place] Neck: Supple, Trachea Midline. No: Lymphadenopathy Lungs: Decreased Breath Sounds, Crackles (Bilateral bases) Cardiovascular: Regular Rate, Irregular Rhythm (History of atrial fib) GI/Abdominal Exam: Normal Bowel Sounds, Soft, Non-Tender, No Distention (Female) Exam: Deferred Back Exam: Normal Inspection, Full Range of Motion Extremities: Normal Inspection, Normal Range of Motion, Non-Tender, No Pedal Edema, Normal Capillary Refill Peripheral Pulses: 2+: Radial (L), Radial (R), Dorsalis Pedis (L), Dorsalis Pedis (R) Skin: Warm, Dry, Intact Neurological: No New Focal Deficit Psy/Mental Status: Alert, Normal Affect, Normal Mood Sepsis Event Note - Evaluation Sepsis Screening Result: No Definite Risk - Focused Exam Vital Signs: Vital Signs Temp Pulse Resp BP Pulse Ox Pulse Ox 10/17/20 11:49 97.3 F 63 129/77 88 L 10/17/20 09:11 90 124/59 L 10/17/20 07:56 97.3 F 68 22 H 124/59 L 90 L 11/20/20 06:21 97.5 F 68 18 124/94 H 89 L 10/17/20 06:20 92 L - Problem List & Annotations (1) COVID-19 SNOMED Code(s): 421957420 Code(s): U07.1 - COVID-19 Status: Acute Priority: High Current Visit: Yes (2) Pneumonia due to COVID-19 virus SNOMED Code(s): 145545823730268005 Code(s): U07.1 - COVID-19; J12.89 - OTHER VIRAL PNEUMONIA Status: Acute Priority: High Current Visit: Yes (3) Afib, Atrial fibrillation and flutter SNOMED Code(s): 903321165 Code(s): I48.91 - UNSPECIFIED ATRIAL FIBRILLATION; I48.92 - UNSPECIFIED ATRIAL FLUTTER Status: Chronic Priority: Medium Current Visit: Yes (4) Hypertension SNOMED Code(s): 25739285 Code(s): I10 - ESSENTIAL (PRIMARY) HYPERTENSION Status: Chronic Priority: Medium Current Visit: Yes Qualifiers: Hypertension type: unspecified Qualified Code(s): I10 - Essential (primary) hypertension (5) Pulmonary hypertension SNOMED Code(s): 81687380 Code(s): I27.20 - PULMONARY HYPERTENSION, UNSPECIFIED Status: Chronic Priority: Medium Current Visit: Yes - Problem List Review Problem List Initiated/Reviewed/Updated: Yes - Assessment Assessment:: 10/15/20 * Currently on 5 L oxygen per nasal cannula. She does wear 2 L of oxygen at home at all times. * No labs today * Weight is down about 3 pounds in the past 24 hours currently receiving 40 mg of Lasix IV twice daily. * Currently on day 5 of dexamethasone * Has completed a 5-day course of remdesivir * Has also been treated with Rocephin 2 g IV x5 days and Zithromax 500 mg IV x3 days to cover pneumonia related to Covid. * Coumadin for DVT prophylaxis. * Has the incentive spirometer and flutter valve at the bedside however the patient states she has not been using that very often. 10/16/20 * Currently on a 3 L of oxygen per nasal cannula: She wears 2 L at home. * No labs today * Weight is down another 3 pounds in the past 24 hours. She is -1175 mL. * Day 6 of dexamethasone. * Coumadin for DVT prophylaxis. * Incentive spirometer and flutter valve * Patient's blood sugars remain high in the mid to upper 200 range. I have increased her sliding scale insulin dose to the high-dose. 10/17/20 * Continues on 3 L of oxygen per nasal cannula * Weight is down 1.9 pounds in the past 24 hours. * Chest x-ray from today reveals: 1 resolved acute pulmonary edema. 2. unchanged small left effusion and left lower lobe infiltrate. * D-dimer continues to trend down. * Day 7 of dexamethasone * Hourly use of incentive spirometer and flutter valve. * Patient's blood sugar much better control with increase in sliding scale insulin dose. - Plan Plan:: 10/16/20 Plan * Keep oxygen saturation between 88 and 94%. Currently on 3 L * Continue dexamethasone for up to 10 days. * Continue to monitor blood sugars. Increase sliding scale to high-dose * Monitor electrolytes * Strict I's and O's and daily weights * Hourly use of incentive spirometer and flutter valve. * PT and OT to evaluate and treat the patient. * Pharmacy dosing warfarin * CODE STATUS: DNR/DNI * Length of stay greater than 96 hours secondary to COVID-19 treatment with remdesivir. * Patient has a poor prognosis secondary to multiple medical problems including heart disease and diabetes, as well she is on oxygen at home for her CHF and she is 89 years old. 10/17/20 * Continue to titrate oxygen to 2 L * Continue dexamethasone for up to 10 days. * 4 times daily Accu-Cheks with sliding scale insulin. * Strict I's and O's and daily weights * PT and OT to continue treating the patient. * Pharmacy to dose Coumadin * Likely discharge to home in the next day or 2 dependent upon titration of oxygen.
[2020-10-17] MEDS ORDERED: Magnesium Hydroxide 400 MG/5 ML Susp 30 ML Cup PO ONE (18:15)
[2020-10-17] MEDS: Simvastatin 20 MG Tab PO SCH (22:17)
[2020-10-18] MEDS ORDERED: Bisacodyl 10 MG Supp RECTAL ONE (06:00)
[2020-10-18] MEDS: Furosemide 40 MG/4 ML VIAL IVPUSH SCH ×2 (06:48→14:51)
[2020-10-18] MEDS: Insulin Lispro 100 Units/ML 3 ML Vial SUBCUT SCH ×7 (09:26→22:02)
[2020-10-18] MEDS: Potassium Chloride 20 MEQ Tab.ER PO SCH (09:26)
[2020-10-18] MEDS: Insulin Glarg,Human.Rec.Analog 100 Unit/ML SUBCUT SCH ×2 (09:26→22:06)
[2020-10-18] MEDS: Dexamethasone 4 MG Tab PO SCH (09:26)
[2020-10-18] MEDS: Metoprolol Tartrate 25 MG Tab PO SCH ×2 (09:27→22:00)
[2020-10-18] MEDS: Nystatin Topical Powder 15 GM Bottle TOP SCH ×3 (09:27→22:02)
[2020-10-18] MEDS: Pantoprazole 40 MG Tab.CR PO SCH (09:28)
--- NOTE | 2020-10-18 13:52 | PCM.PN ---
- General Info Date of Service: 10/18/20 Admission Dx/Problem (Free Text): Covid Subjective Update: No overnight or acute issues. She rested well last night. She reports no GI/ complaints. She is now back to her baseline supplemental O2 of 2L NC. Functional Status: Reports: Pain Controlled - Review of Systems General: Denies: Fever, Chills Pulmonary: Denies: Shortness of Breath, Cough Cardiovascular: Denies: Chest Pain Gastrointestinal: Denies: Abdominal Pain, Nausea, Vomiting Musculoskeletal: Denies: Joint Pain Skin: Denies: Rash Neurological: Denies: Confusion, Dizziness, Weakness Psychiatric: Denies: Confusion, Anxiety - Patient Data Vitals - Most Recent: Last Vital Signs Temp 36.4 C 10/18/20 11:39 Pulse 75 10/18/20 11:39 Resp 24 H 10/18/20 11:39 BP 121/78 10/18/20 11:39 Pulse Ox 91 L 10/18/20 11:39 Weight - Most Recent: 97.658 kg I&O - Last 24 Hours: Intake & Output 10/17/20 10/18/20 10/18/20 22:59 06:59 14:59 Intake Total 1210 400 420 Output Total 1650 1050 Balance -440 -650 420 Lab Results Last 24 Hours: Laboratory Results - last 24 hr 10/17/20 10/17/20 10/18/20 Range/Units 17:10 20:50 05:33 PT (9.7-12.0) SECONDS INR POC Glucose 316 H 356 H 138 H (83-110) mg/dL 10/18/20 10/18/20 Range/Units 05:35 11:40 PT 31.1 H (9.7-12.0) SECONDS INR 2.97 POC Glucose 201 H (83-110) mg/dL Dexter Results Last 24 Hours: Microbiology 10/10/20 19:31 Aerobic Blood Culture - Final Blood - Venous NO GROWTH AFTER 6 DAYS Anaerobic Blood Culture - Final NO GROWTH AFTER 6 DAYS 10/10/20 18:20 Aerobic Blood Culture - Final Blood - Venous - Lab Draw NO GROWTH AFTER 6 DAYS Anaerobic Blood Culture - Final NO GROWTH AFTER 6 DAYS Med Orders - Current: Current Medications Acetaminophen (Tylenol) 650 mg PO Q4H PRN PRN Reason: Fever Greater Than 101 Dexamethasone (Dexamethasone) 6 mg PO DAILY [facility] Stop: 10/20/20 09:01 Last Admin: 10/18/20 09:26 Dose: 6 mg Documented by: Dextrose/Water (Dextrose 50% In Water) 50 ml IV ASDIRECTED PRN PRN Reason: Hypoglycemia Furosemide (Lasix) 40 mg IVPUSH BIDDIURETIC [facility] Last Admin: 10/18/20 06:48 Dose: 40 mg Documented by: Insulin Glargine (Lantus) 10 unit SUBCUT DAILY [facility] Last Admin: 10/18/20 09:26 Dose: 10 units Documented by: Insulin Glargine (Lantus) 5 unit SUBCUT BEDTIME [facility] Last Admin: 10/17/20 22:16 Dose: 5 units Documented by: Insulin Human Lispro (Humalog) 0 unit SUBCUT QIDACANDBED [facility]; Protocol Last Admin: 10/18/20 12:07 Dose: 6 units Documented by: Insulin Human Lispro (Humalog) 5 unit SUBCUT TIDAC [facility] Last Admin: 10/18/20 12:08 Dose: 5 units Documented by: Metoprolol Tartrate (Lopressor) 25 mg PO BID [facility] Last Admin: 10/18/20 09:27 Dose: 25 mg Documented by: Nitroglycerin (Nitrostat) 0.4 mg SL ASDIRECTED PRN PRN Reason: Chest Pain Nystatin (Nystop) 0 gm TOP TID [facility] Last Admin: 10/18/20 09:27 Dose: 1 dose Documented by: Pantoprazole Sodium (Protonix) 40 mg PO DAILY [facility] Last Admin: 10/18/20 09:28 Dose: 40 mg Documented by: Potassium Chloride (Klor-Con M20) 20 meq PO DAILY [facility] Last Admin: 10/18/20 09:26 Dose: 20 meq Documented by: Simvastatin (Zocor) 20 mg PO BEDTIME [facility] Last Admin: 10/17/20 22:17 Dose: 20 mg Documented by: Sodium Chloride (Saline Flush) 10 ml FLUSH ASDIRECTED PRN PRN Reason: Keep Vein Open Last Admin: 10/10/20 16:51 Dose: 10 ml Documented by: Warfarin Sodium (Pharmacy To Dose - Warfarin) 1 dose .XX ASDIRECTED PRN PRN Reason: RX TO DOSE WARFARIN Warfarin Sodium (Coumadin) 0.5 mg PO QPM [facility] Stop: 10/18/20 21:00 Discontinued Medications Bisacodyl (Dulcolax) 10 mg RECTAL ONETIME ONE Stop: 10/18/20 06:01 Last Admin: 10/18/20 06:48 Dose: 10 mg Documented by: Enoxaparin Sodium (Lovenox) 100 mg SUBCUT Q12H [facility] Last Admin: 10/12/20 22:10 Dose: 100 mg Documented by: Furosemide (Lasix) 20 mg IVPUSH BIDDIURETIC [facility] Furosemide (Lasix) 40 mg IVPUSH BIDDIURETIC [facility] Last Admin: 10/17/20 08:00 Dose: Not Given Documented by: Furosemide (Lasix) 40 mg IVPUSH ONETIME ONE Stop: 10/16/20 16:46 Last Admin: 10/16/20 16:51 Dose: 40 mg Documented by: Sodium Chloride (Normal Saline) 1,000 mls @ 1,000 mls/hr IV .BOLUS [facility] Last Admin: 10/10/20 16:50 Dose: 1,000 mls/hr Documented by: Ceftriaxone Sodium 2 gm/ (Sodium Chloride) 100 mls @ 200 mls/hr IV ONETIME ONE Stop: 10/10/20 19:13 Last Admin: 10/10/20 19:43 Dose: 200 mls/hr Documented by: Ceftriaxone Sodium 2 gm/ (Sodium Chloride) 100 mls @ 200 mls/hr IV Q24H [facility] Stop: 10/14/20 19:29 Last Admin: 10/14/20 18:00 Dose: 200 mls/hr Documented by: Azithromycin 500 mg/ Sodium (Chloride) 250 mls @ 250 mls/hr IV Q24H [facility] Stop: 10/12/20 22:59 Last Admin: 10/12/20 22:11 Dose: 250 mls/hr Documented by: Remdesivir 200 mg/ Sodium (Chloride) 250 mls @ 250 mls/hr IV ONETIME ONE Stop: 10/10/20 22:05 Last Admin: 10/11/20 00:07 Dose: 250 mls/hr Documented by: Remdesivir 100 mg/ Sodium (Chloride) 100 mls @ 100 mls/hr IV Q24H [facility] Stop: 10/14/20 21:59 Last Admin: 10/14/20 20:09 Dose: 100 mls/hr Documented by: Magnesium Sulfate 4 gm/ Premix 50 mls @ 12.5 mls/hr IV ONETIME ONE Stop: 10/11/20 13:54 Last Admin: 10/11/20 11:00 Dose: 12.5 mls/hr Documented by: Potassium Chloride 10 meq/ (Premix) 100 mls @ 100 mls/hr IV Q1H [facility] Stop: 10/11/20 13:59 Last Admin: 10/11/20 15:14 Dose: 100 mls/hr Documented by: Insulin Glargine (Lantus) 7 unit SUBCUT DAILY [facility] Last Admin: 10/13/20 10:21 Dose: 7 units Documented by: Insulin Human Lispro (Humalog) 0 unit SUBCUT QIDACANDBED [facility]; Protocol Last Admin: 10/12/20 22:11 Dose: 4 unit Documented by: Insulin Human Regular (Humulin R) Confirm Administered Dose 300 unit .ROUTE .STK-MED ONE Stop: 10/11/20 09:24 Last Admin: 10/11/20 11:22 Dose: Not Given Documented by: Magnesium Hydroxide (Milk Of Magnesia) 30 ml PO ONETIME ONE Stop: 10/17/20 18:16 Last Admin: 10/17/20 18:44 Dose: 30 ml Documented by: Warfarin Sodium (Coumadin) 2.5 mg PO ONETIME ONE Stop: 10/11/20 01:01 Last Admin: 10/11/20 01:57 Dose: 2.5 mg Documented by: Warfarin Sodium (Coumadin) 5 mg PO ONETIME ONE Stop: 10/11/20 18:01 Last Admin: 10/11/20 18:00 Dose: 5 mg Documented by: Warfarin Sodium (Coumadin) 3 mg PO QPM ONE Stop: 10/12/20 18:01 Last Admin: 10/12/20 17:01 Dose: 3 mg Documented by: Warfarin Sodium (Coumadin Sliding Scale) 0 each PO QPM [facility] Stop: 10/13/20 18:01 Last Admin: 10/13/20 17:45 Dose: Not Given Documented by: Warfarin Sodium (Coumadin Sliding Scale) 0 each PO QPM [facility] Stop: 10/14/20 18:01 Last Admin: 10/14/20 17:27 Dose: Not Given Documented by: Warfarin Sodium (Coumadin) 2.5 mg PO QPM [facility] Stop: 10/15/20 18:01 Last Admin: 10/15/20 17:13 Dose: 2.5 mg Documented by: Warfarin Sodium (Coumadin) 2.5 mg PO QPM [facility] Stop: 10/16/20 18:01 Last Admin: 10/16/20 17:41 Dose: 2.5 mg Documented by: Warfarin Sodium (Coumadin) 1 mg PO QPM [facility] Stop: 10/17/20 18:01 Last Admin: 10/17/20 17:34 Dose: 1 mg Documented by: - Exam Quality Assessment: Supplemental Oxygen General: Alert, Oriented, Cooperative, No Acute Distress, Other (Obese) HEENT: Pupils Equal, Pupils Reactive, EOMI, Mucous Membr. Moist/[place] Neck: Supple Lungs: Clear to Auscultation, Normal Respiratory Effort Cardiovascular: Regular Rate, Regular Rhythm GI/Abdominal Exam: Normal Bowel Sounds, Soft, Non-Tender, No Organomegaly, No Distention, No Abnormal Bruit Back Exam: Normal Inspection, Decreased Range of Motion Extremities: Normal Inspection, Normal Range of Motion, Non-Tender, No Pedal Edema, Normal Capillary Refill Peripheral Pulses: 2+: Dorsalis Pedis (L), Dorsalis Pedis (R) Skin: Warm, Dry, Intact Neurological: No New Focal Deficit Psy/Mental Status: Alert, Normal Affect, Normal Mood Sepsis Event Note - Evaluation Sepsis Screening Result: No Definite Risk - Focused Exam Vital Signs: Vital Signs Temp Pulse Resp BP Pulse Ox Pulse Ox 10/18/20 11:39 36.4 C 75 24 H 121/78 91 L 10/18/20 09:43 99 10/18/20 09:27 80 115/67 10/18/20 08:37 36.3 C 81 28 H 115/67 88 L 10/18/20 08:33 36.3 C 80 28 H 115/67 88 L 10/18/20 08:08 36.2 C 63 28 H 121/70 89 L 10/18/20 04:48 36.5 C 72 16 121/86 92 L - Problem List Review Problem List Initiated/Reviewed/Updated: Yes - Plan Plan:: 10/16/20 Plan * Keep oxygen saturation between 88 and 94%. Currently on 3 L * Continue dexamethasone for up to 10 days. * Continue to monitor blood sugars. Increase sliding scale to high-dose * Monitor electrolytes * Strict I's and O's and daily weights * Hourly use of incentive spirometer and flutter valve. * PT and OT to evaluate and treat the patient. * Pharmacy dosing warfarin * CODE STATUS: DNR/DNI * Length of stay greater than 96 hours secondary to COVID-19 treatment with remdesivir. * Patient has a poor prognosis secondary to multiple medical problems including heart disease and diabetes, as well she is on oxygen at home for her CHF and she is 89 years old. 10/17/20 * Continue to titrate oxygen to 2 L * Continue dexamethasone for up to 10 days. * 4 times daily Accu-Cheks with sliding scale insulin. * Strict I's and O's and daily weights * PT and OT to continue treating the patient. * Pharmacy to dose Coumadin * Likely discharge to home in the next day or 2 dependent upon titration of oxygen. 10/18/20 * Continue to titrate to baseline supplemental O2; fluctuating bet 2-3 L NC sating at 88-91% * Encourage to use IS/FV and bedside pulmonary exercise * Dexamethasone 07/07 treatment * Continue PT/OT * Daily INR * Routine AM labs * Need more tune up 1-2 days * Discharge to home with [facility] with PT and BS check
[2020-10-18] MEDS: Simvastatin 20 MG Tab PO SCH (21:59)
[2020-10-19] MEDS: Furosemide 40 MG/4 ML VIAL IVPUSH SCH (06:32)
[2020-10-19] MEDS: Dexamethasone 4 MG Tab PO SCH (08:38)
[2020-10-19] MEDS: Insulin Lispro 100 Units/ML 3 ML Vial SUBCUT SCH ×4 (08:40→11:49)
[2020-10-19] MEDS: Insulin Glarg,Human.Rec.Analog 100 Unit/ML SUBCUT SCH (08:42)
[2020-10-19] MEDS: Pantoprazole 40 MG Tab.CR PO SCH (08:43)
[2020-10-19] MEDS: Potassium Chloride 20 MEQ Tab.ER PO SCH (08:43)
[2020-10-19] MEDS: Metoprolol Tartrate 25 MG Tab PO SCH (08:43)
[2020-10-19] MEDS: Nystatin Topical Powder 15 GM Bottle TOP SCH (08:44)
[2020-10-19 08:46] VITALS: BP 100/78; PULSE 74
--- NOTE | 2020-10-19 12:20 | PCM.DCSUM1 ---
Discharge Summary - Hospital Course HPI Initial Comments: 89-year-old female with COVID-19 diagnosed 10 days ago presented to the emergency department with increasing generalized fatigue and weakness. She had decreasing appetite and shortness of breath. Patient is on 2 L of O2 at home. Patient's daughter today thought she was sounding weak and recommend that she go to the emergency department. Patient does have atrial fibrillation in which she takes warfarin 2.5 mg daily, has not had an INR checked in a few weeks, congestive heart failure, diabetes, and history of PE. When patient arrived at the emergency department initial oxygen saturations were good on 2 L, but she required increasing to 3 L to keep her oxygen saturations at 90. Because of her weakness and increased oxygen need it was felt she needed to be admitted. COVID-19 pneumonia * She is on 2 L nasal cannula at home and requiring 3 L nasal cannula here for adequate saturations in the low 90s. * Was Covid positive approximately 10 days ago. * WBC 3.31, D-dimer 1.07, C-reactive protein 4.6 and chest x-ray all consistent with COVID-19 pneumonia * Started on Rocephin in the emergency department Atrial fibrillation * INR 1.15. She states she is on warfarin 2.5 mL daily. * On metoprolol for rate control CHF/hypertension * proBNP not done in the emergency department, but chest x-ray does not show any significant heart failure. * On Lasix 40 mg daily, losartan, metoprolol * Requires 2 L/min nasal cannula secondary to CHF. Diabetes * Currently on metformin 500 mg daily for diabetes Plan * Admit to floor for treatment of COVID-19 pneumonia * Keep oxygen saturation between 88 and 94%. Currently on 3 L * Patient is out of the window for benefit of convalescent plasma. * Start remdesivir and dexamethasone. * Continue ceftriaxone for 5 days total, and start azithromycin * Check hemoglobin A1c and start sliding scale insulin. Hold metformin while hospitalized. * Monitor fluid status and weights closely. Continue furosemide 40 mg daily * Subtherapeutic INR, therefore will start therapeutic Lovenox at 1 mg/kg every 12 hours and get pharmacy to dose warfarin. * CODE STATUS: DNR/DNI * Length of stay a minimum of 5 days secondary to COVID-19 treatment with remdesivir. * Patient has a poor prognosis secondary to multiple medical problems including heart disease and diabetes, as well she is on oxygen at home for her CHF and she is 89 years old. Diagnosis: Stroke: No - Discharge Data Discharge Date: 10/19/20 Discharge Disposition: Home, Self-Care 01 Condition: Good - Referral to Home Health Primary Care Physician: Bianca Camilo MD - Discharge Diagnosis/Problem(s) (1) Prolonged Q-T interval on ECG SNOMED Code(s): 236993464 ICD Code: R94.31 - ABNORMAL ELECTROCARDIOGRAM [ECG] [EKG] Status: Acute Current Visit: Yes (2) COVID-19 SNOMED Code(s): 176972169 ICD Code: U07.1 - COVID-19 Status: Acute Priority: High Current Visit: Yes (3) Pneumonia due to COVID-19 virus SNOMED Code(s): 308449650357410175 ICD Code: U07.1 - COVID-19; J12.89 - OTHER VIRAL PNEUMONIA Status: Acute Priority: High Current Visit: Yes (4) Afib, Atrial fibrillation and flutter SNOMED Code(s): 668850141 ICD Code: I48.91 - UNSPECIFIED ATRIAL FIBRILLATION; I48.92 - UNSPECIFIED ATRIAL FLUTTER Status: Chronic Priority: Medium Current Visit: Yes (5) Hypertension SNOMED Code(s): 13760142 ICD Code: I10 - ESSENTIAL (PRIMARY) HYPERTENSION Status: Chronic Priority: Medium Current Visit: Yes Qualifiers: Hypertension type: unspecified Qualified Code(s): I10 - Essential (primary) hypertension (6) Pulmonary hypertension SNOMED Code(s): 45624188 ICD Code: I27.20 - PULMONARY HYPERTENSION, UNSPECIFIED Status: Chronic Priority: Medium Current Visit: Yes - Patient Summary/Data Consults: Consultations 10/14/20 12:52 PT Evaluation and Treatment [CONS] Routine 10/14/20 12:53 OT Evaluation and Treatment [CONS] Routine Hospital Course: Patient was admitted with COVID-19 pneumonia. She was treated with 5-day course of remdesivir, 9 days of dexamethasone, Rocephin 2 g daily for 5 days and Zithromax 500 mg x 3 days. When patient was admitted her INR was subtherapeutic at 1.15. She was admitted on warfarin 2.5 mg daily. Because of the antibiotics her INR did jump up to 3.25 but at discharge it is 2.43. Antibiotics have been stopped and she will be started back on her home dose, but she will need close follow-up with the warfarin clinic. Patient is on 2 L O2 at home at rest and here her maximum requirement was 5 L/min. Otherwise hospitalization was uneventful. - Patient Instructions Diet: Diabetic Diet Activity: As Tolerated Driving: Do Not Drive Showering/Bathing: May Shower Notify Provider of: Fever, Nausea and/or Vomiting Other/Special Instructions: You are being sent home on your home dose of warfarin. You are on a lower dose while hospitalized because of also being on antibiotics. You will need to get your INR checked in 3 to 4 days and adjusted as appropriate. Follow-up with your primary care provider at the end of this week. - Discharge Plan *PRESCRIPTION DRUG MONITORING PROGRAM REVIEWED*: No *COPY OF PRESCRIPTION DRUG MONITORING REPORT IN PATIENT KELLY: No Home Medications: Home Meds Acetaminophen 650 mg PO BID 12/20/14 [History] Calcium Carb/Vit D3/Minerals [ Calcium 531-[id number] Tab] 1 each PO BID 12/20/14 [History] Furosemide [Lasix] 80 mg PO BID 12/20/14 [History] Losartan [Cozaar] 12.5 mg PO DAILY 12/20/14 [History] Multivitamin [Daily Multiple Vitamin] 1 tab PO DAILY 12/20/14 [History] Nitroglycerin [Nitrostat] 0.4 mg SL ASDIRECTED PRN 12/20/14 [History] Pantoprazole [ProTONIX] 40 mg PO DAILY 12/20/14 [History] Potassium Chloride [Klor-Con M20] 20 meq PO DAILY 12/20/14 [History] atorvaSTATin [Lipitor] 20 mg PO BEDTIME 12/20/14 [History] Warfarin Sodium [Jantoven] 2.5 mg PO DAILY 02/20/18 [History] metFORMIN HCl [Metformin HCl] 250 mg PO DAILY 02/20/18 [History] Fluticasone Propionate [Flonase] 1 spray NASBOTH DAILY 10/11/20 [History] Levalbuterol Tartrate [Xopenex Hfa] 4.5 mcg INH BID 10/11/20 [History] Metoprolol Tartrate [Lopressor] 25 mg PO BID 10/11/20 [History] Oxygen Therapy Mode: Nasal Cannula Oxygen Flow Rate (L/min): 2 Patient Handouts: COVID-19, Heart Failure, Self Care, Sepsis, Diagnosis, Adult, Prevent the Spread of COVID-19 if You Are Sick - [facility] Referrals: Bianca Camilo MD [Primary Care Provider] - (please call and schedule a hospital follow up appointment with your primary care provider for within 1 week.) - Discharge Summary/Plan Comment DC Time >30 min.: Yes Discharge Summary/Plan Comment: Discharged home in good condition. Patient to follow-up with the warfarin clinic in 3 to 4 days. She is restarting her home dose. She is also to follow- up with her primary care provider at the end of this week. - Patient Data Vitals - Most Recent: Last Vital Signs Temp 98.3 F 10/19/20 05:00 Pulse 74 10/19/20 08:43 Resp 16 10/19/20 05:00 BP 100/78 10/19/20 08:43 Pulse Ox 92 L 10/19/20 05:00 Weight - Most Recent: 214 lb 14.4 oz I&O - Last 24 hours: Intake & Output 10/18/20 10/19/20 10/19/20 22:59 06:59 14:59 Intake Total 1360 100 240 Output Total 950 500 Balance 410 -400 240 Lab Results - Last 24 hrs: Laboratory Results - last 24 hr 10/18/20 10/18/20 10/19/20 Range/Units 16:36 21:46 04:40 WBC (3.98-10.04) K/mm3 RBC (3.98-5.22) M/mm3 Hgb (11.2-15.7) gm/dl Hct (34.1-44.9) % MCV (79.4-94.8) fl MCH (25.6-32.2) pg MCHC (32.2-35.5) g/dl RDW Std Deviation (36.4-46.3) fL Plt Count (182-369) K/mm3 MPV (9.4-12.3) fl Neut % (Auto) (34.0-71.1) % Lymph % (Auto) (19.3-51.7) % [place] % (Auto) (4.7-12.5) % Eos % (Auto) (0.7-5.8) Baso % (Auto) (0.1-1.2) % Neut # (Auto) (1.56-6.13) K/mm3 Lymph # (Auto) (1.18-3.74) K/mm3 [place] # (Auto) (0.24-0.36) K/mm3 Eos # (Auto) (0.04-0.36) K/mm3 Baso # (Auto) (0.01-0.08) K/mm3 Manual Slide Review PT 25.6 H (9.7-12.0) SECONDS INR 2.43 Sodium (136-145) mEq/L Potassium (3.5-5.1) mEq/L Chloride (98-107) mEq/L Carbon Dioxide (21-32) mEq/L Anion Gap (5-15) BUN (7-18) mg/dL Creatinine (0.55-1.02) mg/dL Est Cr Clr Drug Dosing mL/min Estimated GFR (MDRD) (>60) mL/min BUN/Creatinine Ratio (14-18) Glucose (83-115) mg/dL POC Glucose 367 H 292 H (83-110) mg/dL Calcium (8.5-10.1) mg/dL 10/19/20 10/19/20 10/19/20 Range/Units 04:40 04:40 05:37 WBC 7.72 (3.98-10.04) K/mm3 RBC 5.19 (3.98-5.22) M/mm3 Hgb 14.7 (11.2-15.7) gm/dl Hct 45.5 H (34.1-44.9) % MCV 87.7 (79.4-94.8) fl MCH 28.3 (25.6-32.2) pg MCHC 32.3 (32.2-35.5) g/dl RDW Std Deviation 46.0 (36.4-46.3) fL Plt Count 330 (182-369) K/mm3 MPV 10.8 (9.4-12.3) fl Neut % (Auto) 78.7 H (34.0-71.1) % Lymph % (Auto) 7.5 L (19.3-51.7) % [place] % (Auto) 11.7 (4.7-12.5) % Eos % (Auto) 0.1 L (0.7-5.8) Baso % (Auto) 0.3 (0.1-1.2) % Neut # (Auto) 6.08 (1.56-6.13) K/mm3 Lymph # (Auto) 0.58 L (1.18-3.74) K/mm3 [place] # (Auto) 0.90 H (0.24-0.36) K/mm3 Eos # (Auto) 0.01 L (0.04-0.36) K/mm3 Baso # (Auto) 0.02 (0.01-0.08) K/mm3 Manual Slide Review Abnormal smear PT (9.7-12.0) SECONDS INR Sodium 136 (136-145) mEq/L Potassium 4.1 (3.5-5.1) mEq/L Chloride 98 (98-107) mEq/L Carbon Dioxide 36 H (21-32) mEq/L Anion Gap 6.1 (5-15) BUN 25 H (7-18) mg/dL Creatinine 0.8 (0.55-1.02) mg/dL Est Cr Clr Drug Dosing 41.17 mL/min Estimated GFR (MDRD) > 60 (>60) mL/min BUN/Creatinine Ratio 31.3 H (14-18) Glucose 136 H (83-115) mg/dL POC Glucose 143 H (83-110) mg/dL Calcium 9.1 (8.5-10.1) mg/dL 10/19/20 Range/Units 11:45 WBC (3.98-10.04) K/mm3 RBC (3.98-5.22) M/mm3 Hgb (11.2-15.7) gm/dl Hct (34.1-44.9) % MCV (79.4-94.8) fl MCH (25.6-32.2) pg MCHC (32.2-35.5) g/dl RDW Std Deviation (36.4-46.3) fL Plt Count (182-369) K/mm3 MPV (9.4-12.3) fl Neut % (Auto) (34.0-71.1) % Lymph % (Auto) (19.3-51.7) % [place] % (Auto) (4.7-12.5) % Eos % (Auto) (0.7-5.8) Baso % (Auto) (0.1-1.2) % Neut # (Auto) (1.56-6.13) K/mm3 Lymph # (Auto) (1.18-3.74) K/mm3 [place] # (Auto) (0.24-0.36) K/mm3 Eos # (Auto) (0.04-0.36) K/mm3 Baso # (Auto) (0.01-0.08) K/mm3 Manual Slide Review PT (9.7-12.0) SECONDS INR Sodium (136-145) mEq/L Potassium (3.5-5.1) mEq/L Chloride (98-107) mEq/L Carbon Dioxide (21-32) mEq/L Anion Gap (5-15) BUN (7-18) mg/dL Creatinine (0.55-1.02) mg/dL Est Cr Clr Drug Dosing mL/min Estimated GFR (MDRD) (>60) mL/min BUN/Creatinine Ratio (14-18) Glucose (83-115) mg/dL POC Glucose 192 H (83-110) mg/dL Calcium (8.5-10.1) mg/dL Med Orders - Current: Current Medications Acetaminophen (Tylenol) 650 mg PO Q4H PRN PRN Reason: Fever Greater Than 101 Dexamethasone (Dexamethasone) 6 mg PO DAILY [facility] Stop: 10/20/20 09:01 Last Admin: 10/19/20 08:38 Dose: 6 mg Documented by: Dextrose/Water (Dextrose 50% In Water) 50 ml IV ASDIRECTED PRN PRN Reason: Hypoglycemia Furosemide (Lasix) 40 mg IVPUSH BIDDIURETIC [facility] Last Admin: 10/19/20 06:32 Dose: 40 mg Documented by: Insulin Glargine (Lantus) 10 unit SUBCUT DAILY [facility] Last Admin: 10/19/20 08:42 Dose: 10 units Documented by: Insulin Glargine (Lantus) 5 unit SUBCUT BEDTIME [facility] Last Admin: 10/18/20 22:06 Dose: 5 units Documented by: Insulin Human Lispro (Humalog) 0 unit SUBCUT QIDACANDBED [facility]; Protocol Last Admin: 10/19/20 11:49 Dose: Not Given Documented by: Insulin Human Lispro (Humalog) 5 unit SUBCUT TIDAC [facility] Last Admin: 10/19/20 11:47 Dose: 5 units Documented by: Metoprolol Tartrate (Lopressor) 25 mg PO BID [facility] Last Admin: 10/19/20 08:43 Dose: 25 mg Documented by: Nitroglycerin (Nitrostat) 0.4 mg SL ASDIRECTED PRN PRN Reason: Chest Pain Nystatin (Nystop) 0 gm TOP TID [facility] Last Admin: 10/19/20 08:44 Dose: 1 dose Documented by: Pantoprazole Sodium (Protonix) 40 mg PO DAILY [facility] Last Admin: 10/19/20 08:43 Dose: 40 mg Documented by: Potassium Chloride (Klor-Con M20) 20 meq PO DAILY [facility] Last Admin: 10/19/20 08:43 Dose: 20 meq Documented by: Simvastatin (Zocor) 20 mg PO BEDTIME [facility] Last Admin: 10/18/20 21:59 Dose: 20 mg Documented by: Sodium Chloride (Saline Flush) 10 ml FLUSH ASDIRECTED PRN PRN Reason: Keep Vein Open Last Admin: 10/10/20 16:51 Dose: 10 ml Documented by: Warfarin Sodium (Pharmacy To Dose - Warfarin) 1 dose .XX ASDIRECTED PRN PRN Reason: RX TO DOSE WARFARIN Warfarin Sodium (Coumadin) 1 mg PO QPM [facility] Stop: 10/19/20 21:00 Discontinued Medications Bisacodyl (Dulcolax) 10 mg RECTAL ONETIME ONE Stop: 10/18/20 06:01 Last Admin: 10/18/20 06:48 Dose: 10 mg Documented by: Enoxaparin Sodium (Lovenox) 100 mg SUBCUT Q12H [facility] Last Admin: 10/12/20 22:10 Dose: 100 mg Documented by: Furosemide (Lasix) 20 mg IVPUSH BIDDIURETIC [facility] Furosemide (Lasix) 40 mg IVPUSH BIDDIURETIC [facility] Last Admin: 10/17/20 08:00 Dose: Not Given Documented by: Furosemide (Lasix) 40 mg IVPUSH ONETIME ONE Stop: 10/16/20 16:46 Last Admin: 10/16/20 16:51 Dose: 40 mg Documented by: Sodium Chloride (Normal Saline) 1,000 mls @ 1,000 mls/hr IV .BOLUS [facility] Last Admin: 11/13/20 16:50 Dose: 1,000 mls/hr Documented by: Ceftriaxone Sodium 2 gm/ (Sodium Chloride) 100 mls @ 200 mls/hr IV ONETIME ONE Stop: 10/10/20 19:13 Last Admin: 10/10/20 19:43 Dose: 200 mls/hr Documented by: Ceftriaxone Sodium 2 gm/ (Sodium Chloride) 100 mls @ 200 mls/hr IV Q24H [facility] Stop: 10/14/20 19:29 Last Admin: 10/14/20 18:00 Dose: 200 mls/hr Documented by: Azithromycin 500 mg/ Sodium (Chloride) 250 mls @ 250 mls/hr IV Q24H [facility] Stop: 10/12/20 22:59 Last Admin: 10/12/20 22:11 Dose: 250 mls/hr Documented by: Remdesivir 200 mg/ Sodium (Chloride) 250 mls @ 250 mls/hr IV ONETIME ONE Stop: 10/10/20 22:05 Last Admin: 10/11/20 00:07 Dose: 250 mls/hr Documented by: Remdesivir 100 mg/ Sodium (Chloride) 100 mls @ 100 mls/hr IV Q24H [facility] Stop: 10/14/20 21:59 Last Admin: 10/14/20 20:09 Dose: 100 mls/hr Documented by: Magnesium Sulfate 4 gm/ Premix 50 mls @ 12.5 mls/hr IV ONETIME ONE Stop: 10/11/20 13:54 Last Admin: 10/11/20 11:00 Dose: 12.5 mls/hr Documented by: Potassium Chloride 10 meq/ (Premix) 100 mls @ 100 mls/hr IV Q1H [facility] Stop: 10/11/20 13:59 Last Admin: 10/11/20 15:14 Dose: 100 mls/hr Documented by: Insulin Glargine (Lantus) 7 unit SUBCUT DAILY [facility] Last Admin: 10/13/20 10:21 Dose: 7 units Documented by: Insulin Human Lispro (Humalog) 0 unit SUBCUT QIDACANDBED [facility]; Protocol Last Admin: 10/12/20 22:11 Dose: 4 unit Documented by: Insulin Human Regular (Humulin R) Confirm Administered Dose 300 unit .ROUTE .STK-MED ONE Stop: 10/11/20 09:24 Last Admin: 10/11/20 11:22 Dose: Not Given Documented by: Magnesium Hydroxide (Milk Of Magnesia) 30 ml PO ONETIME ONE Stop: 10/17/20 18:16 Last Admin: 10/17/20 18:44 Dose: 30 ml Documented by: Warfarin Sodium (Coumadin) 2.5 mg PO ONETIME ONE Stop: 10/11/20 01:01 Last Admin: 10/11/20 01:57 Dose: 2.5 mg Documented by: Warfarin Sodium (Coumadin) 5 mg PO ONETIME ONE Stop: 10/11/20 18:01 Last Admin: 10/11/20 18:00 Dose: 5 mg Documented by: Warfarin Sodium (Coumadin) 3 mg PO QPM ONE Stop: 10/12/20 18:01 Last Admin: 10/12/20 17:01 Dose: 3 mg Documented by: Warfarin Sodium (Coumadin Sliding Scale) 0 each PO QPM [facility] Stop: 10/13/20 18:01 Last Admin: 10/13/20 17:45 Dose: Not Given Documented by: Warfarin Sodium (Coumadin Sliding Scale) 0 each PO QPM [facility] Stop: 10/14/20 18:01 Last Admin: 10/14/20 17:27 Dose: Not Given Documented by: Warfarin Sodium (Coumadin) 2.5 mg PO QPM [facility] Stop: 10/15/20 18:01 Last Admin: 10/15/20 17:13 Dose: 2.5 mg Documented by: Warfarin Sodium (Coumadin) 2.5 mg PO QPM [facility] Stop: 10/16/20 18:01 Last Admin: 10/16/20 17:41 Dose: 2.5 mg Documented by: Warfarin Sodium (Coumadin) 1 mg PO QPM [facility] Stop: 10/17/20 18:01 Last Admin: 10/17/20 17:34 Dose: 1 mg Documented by: Warfarin Sodium (Coumadin) 0.5 mg PO QPM [facility] Stop: 10/18/20 21:00 Last Admin: 10/18/20 17:37 Dose: 0.5 mg Documented by: - Exam Quality Assessment: Reports: Supplemental Oxygen General: Reports: Alert, Oriented HEENT: Reports: Pupils Equal, Mucous Membr. Moist/[place] Neck: Reports: Supple Lungs: Reports: Normal Respiratory Effort, Decreased Breath Sounds, Rales (Bibas[place]) Cardiovascular: Reports: Irregular Rhythm GI/Abdominal Exam: Normal Bowel Sounds, Soft, Non-Tender, No Distention Extremities: Normal Inspection, Normal Range of Motion, Normal Capillary Refill, Pedal Edema (1+) Neurological: Reports: No New Focal Deficit Psy/Mental Status: Reports: Alert, Normal Affect, Normal Mood
== END 2020-10-19 13:05 | disposition home or self-care (01) | DRG 177 ==
LOC: SUPCPDRO 16:09 → JD.ED 16:09 → JD.MS 18:48
PROVIDERS: ADMIT Family Medicine; ATTEND Family Medicine
PROC: 8E0ZXY6 Isolation (ICD-10-PCS; principal; 2020-10-10)
PROC: XW033E5 Introduction of Remdesivir Anti-infective into Peripheral Vein, Percutaneous Approach, New Technology Group 5 (ICD-10-PCS; 2020-10-10)
DX: U07.1 COVID-19 (principal); J12.89 Other viral pneumonia; R09.02 Hypoxemia; I48.20 Chronic atrial fibrillation, unspecified; H91.93 Unspecified hearing loss, bilateral; I48.92 Unspecified atrial flutter; I48.91 Unspecified atrial fibrillation; L03.311 Cellulitis of abdominal wall; Z66 Do not resuscitate; R94.31 Abnormal electrocardiogram [ECG] [EKG]; I27.20 Pulmonary hypertension, unspecified; H91.90 Unspecified hearing loss, unspecified ear; K44.9 Diaphragmatic hernia without obstruction or gangrene; K57.90 Diverticulosis of intestine, part unspecified, without perforation or abscess without bleeding; H54.7 Unspecified visual loss; K21.9 Gastro-esophageal reflux disease without esophagitis; I25.10 Atherosclerotic heart disease of native coronary artery without angina pectoris; E78.00 Pure hypercholesterolemia, unspecified; M19.90 Unspecified osteoarthritis, unspecified site; E66.9 Obesity, unspecified; Z98.890 Other specified postprocedural states; I11.0 Hypertensive heart disease with heart failure; I50.9 Heart failure, unspecified; Z96.651 Presence of right artificial knee joint; Z79.84 Long term (current) use of oral hypoglycemic drugs; E87.6 Hypokalemia; Z79.52 Long term (current) use of systemic steroids; Z79.899 Other long term (current) drug therapy; E83.39 Other disorders of phosphorus metabolism; E83.42 Hypomagnesemia; E88.09 Other disorders of plasma-protein metabolism, not elsewhere classified; Z79.01 Long term (current) use of anticoagulants; Z99.81 Dependence on supplemental oxygen; Z88.2 Allergy status to sulfonamides; Z88.8 Allergy status to other drugs, medicaments and biological substances; Z98.49 Cataract extraction status, unspecified eye; Z68.36 Body mass index [BMI] 36.0-36.9, adult; Z90.49 Acquired absence of other specified parts of digestive tract; Z90.710 Acquired absence of both cervix and uterus; Z86.718 Personal history of other venous thrombosis and embolism; Z86.711 Personal history of pulmonary embolism
CPT/HCPCS: 36415; 71045; 71045-26; 80048; 80053; 81001; 82962; 83036; 83605; 83735; 84100; 84145; 85025; 85379; 85610; 86140; 87040; 93005; 94667; 94668; 94761; 97110-GO; 97110-GP; 97162-GP; 97165-GO; 97530-GP; 97535-GO; 99222; 99231; 99232; 99239; 99284; A9270-GY; J0456; J0696; J1650; J1815-GY; J1940; J3475; J3480; J7030; J7050; J8540